=== PATIENT | male | born 1955 | race Caucasian/White ===

== ENCOUNTER 2020-10-02 07:37 | Outpatient (REF) | payer BC, SELFPAY ==
[2020-10-02 11:17] LABS: Estimated Average Glucose 140 mg/dL; Hemoglobin A1c % 6.5 %
[2020-10-02 11:55] LABS: Creatinine Urine 34.67 mg/dL; Microalbum/Creatinine Ratio Ur 426.8 ug/mg cr
[2020-10-02 12:03] LABS: Alanine Aminotransferase 65 U/L (0-40); Albumin Level 4.8 g/dL (3.5-5.0); Alkaline Phosphatase 64 U/L (39-117); Anion Gap 17 (12-20); Aspartate Amino Transferase 67 U/L (5-37); Bilirubin Total 1.3 mg/dL (0.0-1.0); Blood Urea Nitrogen 15 mg/dL (9-16); Calcium 9.2 mg/dL (8.4-10.2); Carbon Dioxide 22 mmol/L (22-29); Chloride 108 mmol/L (96-108); Cholesterol 143 mg/dL; Estimated Glomerular Filt Rate 35; Glucose Fasting 116 mg/dL (60-99); HDL Cholesterol 84 mg/dL; LDL Cholesterol Calculated 45 mg/dl; Potassium 3.9 mmol/L (3.3-5.1); Sodium 143 mmol/L (135-145); Total Protein 7.6 g/dL (6.5-8.0); Triglycerides 73 mg/dL
== END 2020-10-02 07:38 | disposition home or self-care (01) ==
LOC: HO.MANLDS 07:37
PROVIDERS: PCP Internal Medicine; Visit Provider Internal Medicine
DX: E11.9 Type 2 diabetes mellitus without complications (principal)
CPT/HCPCS: 36415; 80053; 80061; 82043; 83036

== ENCOUNTER 2020-11-15 11:11 | Outpatient (REF) | payer BC, SELFPAY ==
[2020-11-15 15:14] LABS: CDIFF Ag Negative (Negative); CDIFF Internal ctrl Dots and bkg OK (V); CDiff Toxin Negative (Negative)
== END 2020-11-15 11:12 | disposition home or self-care (01) ==
LOC: HO.MANLDS 11:11
PROVIDERS: PCP Internal Medicine; Visit Provider Internal Medicine
DX: R19.7 Diarrhea, unspecified (principal)
CPT/HCPCS: 87045; 87046; 87324; 87449

== ENCOUNTER 2021-04-01 07:50 | Outpatient (REF) | payer BC, SELFPAY ==
[2021-04-01 12:33] LABS: Estimated Average Glucose 174 mg/dL; Hemoglobin A1c % 7.7 %
[2021-04-01 12:36] LABS: Alanine Aminotransferase 33 U/L (0-40); Albumin Level 4.4 g/dL (3.5-5.0); Alkaline Phosphatase 68 U/L (39-117); Anion Gap 15 (12-20); Aspartate Amino Transferase 34 U/L (5-37); Bilirubin Total 0.4 mg/dL (0.0-1.0); Blood Urea Nitrogen 11 mg/dL (9-16); Calcium 9.1 mg/dL (8.4-10.2); Carbon Dioxide 25 mmol/L (22-29); Chloride 107 mmol/L (96-108); Cholesterol 170 mg/dL; Estimated Glomerular Filt Rate > 60; Glucose Fasting 194 mg/dL (60-99); HDL Cholesterol 81 mg/dL; LDL Cholesterol Calculated 67 mg/dl; Potassium 4.7 mmol/L (3.3-5.1); Sodium 142 mmol/L (135-145); Total Protein 7.3 g/dL (6.5-8.0); Triglycerides 112 mg/dL
[2021-04-05 21:17] LABS: IgA 171 mg/dL (70-320); IgG 1160 mg/dL (600-1540); IgM 49 mg/dL (50-300)
[2021-04-09 22:06] LABS: Immunoglobulin E 55 kU/L (<OR=114)
== END 2021-04-01 07:51 | disposition home or self-care (01) ==
LOC: HO.MANLDS 07:50
PROVIDERS: Internal Medicine; PCP Physician Assistant; Visit Provider Physician Assistant
DX: N18.9 Chronic kidney disease, unspecified (principal)
CPT/HCPCS: 36415; 80053; 80061; 82784; 82785; 83036; 86334

== ENCOUNTER 2021-10-20 08:46 | Outpatient (REF) | payer BC, SELFPAY ==
[2021-10-20 11:42] LABS: Alanine Aminotransferase 37 U/L (0-40); Albumin Level 4.3 g/dL (3.5-5.0); Alkaline Phosphatase 55 U/L (39-117); Anion Gap 16 (12-20); Aspartate Amino Transferase 47 U/L (5-37); Bilirubin Total 0.5 mg/dL (0.0-1.0); Blood Urea Nitrogen 36 mg/dL (9-16); Calcium 9.6 mg/dL (8.4-10.2); Carbon Dioxide 18 mmol/L (22-29); Chloride 110 mmol/L (96-108); Cholesterol 109 mg/dL; Estimated Glomerular Filt Rate 21; Glucose Fasting 151 mg/dL (60-99); HDL Cholesterol 53 mg/dL; LDL Cholesterol Calculated 36 mg/dl; Potassium 4.6 mmol/L (3.3-5.1); Sodium 139 mmol/L (135-145); Total Protein 7.1 g/dL (6.5-8.0); Triglycerides 101 mg/dL
[2021-10-20 12:02] LABS: Estimated Average Glucose 117 mg/dL; Hemoglobin A1c % 5.7 %
== END 2021-10-20 08:47 | disposition home or self-care (01) ==
LOC: HO.MANLDS 08:46
PROVIDERS: PCP Internal Medicine; Visit Provider Internal Medicine
DX: E11.9 Type 2 diabetes mellitus without complications (principal)
CPT/HCPCS: 36415; 80053; 80061; 83036

== ENCOUNTER 2021-10-21 10:26 | Outpatient (REF) | payer BC, SELFPAY ==
[2021-10-21 13:53] LABS: Creatinine Urine 62.08 mg/dL; Microalbum/Creatinine Ratio Ur 83.7 ug/mg cr
== END 2021-10-21 10:27 | disposition home or self-care (01) ==
LOC: HO.MANLNP 10:26
PROVIDERS: PCP Internal Medicine; Visit Provider Internal Medicine
DX: E11.9 Type 2 diabetes mellitus without complications (principal)
CPT/HCPCS: 82043

== ENCOUNTER 2022-03-25 10:34 | Outpatient (REF) | payer BC, SELFPAY ==
[2022-03-25 13:00] LABS: Estimated Average Glucose 131 mg/dL; Hemoglobin A1c % 6.2 %
[2022-03-25 13:19] LABS: Creatinine Urine 91.96 mg/dL; Microalbum/Creatinine Ratio Ur 73.9 ug/mg cr
[2022-03-25 13:21] LABS: Alanine Aminotransferase 30 U/L (0-40); Albumin Level 4.3 g/dL (3.5-5.0); Alkaline Phosphatase 60 U/L (39-117); Anion Gap 14 (12-20); Aspartate Amino Transferase 33 U/L (5-37); Bilirubin Total 0.6 mg/dL (0.0-1.0); Blood Urea Nitrogen 19 mg/dL (9-16); Calcium 9.5 mg/dL (8.4-10.2); Carbon Dioxide 24 mmol/L (22-29); Chloride 106 mmol/L (96-108); Cholesterol 140 mg/dL; Estimated Glomerular Filt Rate > 60; Glucose Random 150 mg/dL (60-115); HDL Cholesterol 72 mg/dL; LDL Cholesterol Calculated 58 mg/dl; Potassium 5.2 mmol/L (3.3-5.1); Sodium 139 mmol/L (135-145); Total Protein 7.4 g/dL (6.5-8.0); Triglycerides 51 mg/dL
== END 2022-03-25 10:35 | disposition home or self-care (01) ==
LOC: HO.MANLDS 10:34
PROVIDERS: Visit Provider Internal Medicine
DX: E11.9 Type 2 diabetes mellitus without complications (principal)
CPT/HCPCS: 36415; 80053; 80061; 82043; 83036

== ENCOUNTER 2022-07-15 10:01 | Outpatient (REF) | payer BC, SELFPAY ==
[2022-07-15 11:34] LABS: Estimated Average Glucose 151 mg/dL; Hemoglobin A1c % 6.9 %
[2022-07-15 11:49] LABS: Alanine Aminotransferase 58 U/L (0-40); Albumin Level 4.4 g/dL (3.5-5.0); Alkaline Phosphatase 75 U/L (39-117); Anion Gap 14 (12-20); Aspartate Amino Transferase 62 U/L (5-37); Bilirubin Total 0.8 mg/dL (0.0-1.0); Blood Urea Nitrogen 19 mg/dL (9-16); Calcium 9.4 mg/dL (8.4-10.2); Carbon Dioxide 24 mmol/L (22-29); Chloride 104 mmol/L (96-108); Cholesterol 152 mg/dL; Estimated Glomerular Filt Rate 55; Glucose Random 198 mg/dL (60-115); HDL Cholesterol 84 mg/dL; LDL Cholesterol Calculated 56 mg/dl; Potassium 5.3 mmol/L (3.3-5.1); Sodium 137 mmol/L (135-145); Total Protein 7.5 g/dL (6.5-8.0); Triglycerides 60 mg/dL
== END 2022-07-15 10:02 | disposition home or self-care (01) ==
LOC: HO.MANLDS 10:01
PROVIDERS: Visit Provider Internal Medicine
DX: E11.9 Type 2 diabetes mellitus without complications (principal)
CPT/HCPCS: 36415; 80053; 80061; 83036

== ENCOUNTER 2022-10-14 09:36 | Outpatient (REF) | payer BC, SELFPAY ==
[2022-10-14 13:16] LABS: Estimated Average Glucose 151 mg/dL; Hemoglobin A1c % 6.9 %
[2022-10-14 13:35] LABS: Creatinine Urine 147.21 mg/dL; Microalbum/Creatinine Ratio Ur 228.2 ug/mg cr
[2022-10-14 13:46] LABS: Alanine Aminotransferase 38 U/L (0-40); Albumin Level 4.3 g/dL (3.5-5.0); Alkaline Phosphatase 61 U/L (39-117); Anion Gap 17 (12-20); Aspartate Amino Transferase 41 U/L (5-37); Bilirubin Total 0.9 mg/dL (0.0-1.0); Blood Urea Nitrogen 28 mg/dL (9-16); Calcium 8.9 mg/dL (8.4-10.2); Carbon Dioxide 18 mmol/L (22-29); Chloride 108 mmol/L (96-108); Cholesterol 111 mg/dL; Estimated Glomerular Filt Rate 22; Glucose Random 159 mg/dL (60-115); HDL Cholesterol 55 mg/dL; LDL Cholesterol Calculated 32 mg/dl; Potassium 4.2 mmol/L (3.3-5.1); Sodium 139 mmol/L (135-145); Triglycerides 124 mg/dL
[2022-10-14 14:04] LABS: Prostate Specific Antigen 5.49 ng/mL (<0.05-4.0)
== END 2022-10-14 09:37 | disposition home or self-care (01) ==
LOC: HO.MANLDS 09:36
PROVIDERS: Visit Provider Internal Medicine
DX: E11.9 Type 2 diabetes mellitus without complications (principal); Z12.5 Encounter for screening for malignant neoplasm of prostate
CPT/HCPCS: 36415; 80053; 80061; 82043; 83036; 84153

== ENCOUNTER 2023-02-02 08:55 | Outpatient (REF) | payer BC, SELFPAY ==
[2023-02-02 14:09] LABS: Estimated Average Glucose 134 mg/dL; Hemoglobin A1c % 6.3 %
[2023-02-02 14:23] LABS: Prostate Specific Antigen 4.66 ng/mL (<0.05-4.0)
[2023-02-02 14:25] LABS: Alanine Aminotransferase 34 U/L (0-40); Albumin Level 4.2 g/dL (3.5-5.0); Alkaline Phosphatase 61 U/L (39-117); Anion Gap 11 (12-20); Aspartate Amino Transferase 44 U/L (5-37); Bilirubin Total 0.7 mg/dL (0.0-1.0); Blood Urea Nitrogen 16 mg/dL (9-16); Calcium 9.9 mg/dL (8.4-10.2); Carbon Dioxide 25 mmol/L (22-29); Chloride 108 mmol/L (96-108); Cholesterol 118 mg/dL; Estimated Glomerular Filt Rate 45; Glucose Random 130 mg/dL (60-115); HDL Cholesterol 63 mg/dL; LDL Cholesterol Calculated 42 mg/dl; Potassium 4.8 mmol/L (3.3-5.1); Sodium 139 mmol/L (135-145); Total Protein 7.5 g/dL (6.5-8.0); Triglycerides 66 mg/dL
== END 2023-02-02 08:56 | disposition home or self-care (01) ==
LOC: HO.MANLDS 08:55
PROVIDERS: Visit Provider Internal Medicine
DX: Z12.5 Encounter for screening for malignant neoplasm of prostate (principal); E11.9 Type 2 diabetes mellitus without complications
CPT/HCPCS: 36415; 80053; 80061; 83036; 84153

== ENCOUNTER 2023-05-26 10:19 | Outpatient (REF) | payer BC, SELFPAY ==
[2023-05-26 13:16] LABS: MANUAL DIFF FLAG NO
[2023-05-26 13:35] LABS: Estimated Average Glucose 146 mg/dL; Hemoglobin A1c % 6.7 % (<6.0)
[2023-05-26 13:38] LABS: Basophils Percent Auto 0.4 % (0-2); Eosinophils Absolute Auto 0.1 X10*3/uL (0.0-0.4); Eosinophils Percent Auto 0.8 % (0-4); Hematocrit 30.1 % (42.0-52.0); Hemoglobin 9.6 g/dl (14.0-18.0); Imm Gran Abs Auto 0.07 X10*3/uL (0.00-0.03); Imm Gran Pct Auto 0.9 % (0.0-0.4); Lymphocytes Absolute Auto 0.6 X10*3/uL (1.2-4.9); Lymphocytes Percent Auto 8.2 % (20-40); Mean Corpuscular HGB Conc 31.9 g/dl (31.0-36.0); Mean Corpuscular Hemoglobin 32.5 pg (27.0-33.0); Mean Platelet Volume 8.7 fL (9.4-12.4); Monocytes Absolute Auto 0.6 X10*3/uL (0.1-1.2); Monocytes Percent Auto 7.2 % (2-11); Neutrophils Absolute Auto 6.4 x10*3/uL (2.0-8.3); Neutrophils Percent Auto 82.5 % (45-73); Platelet Count 216 X10*3/uL (160-400); Red Blood Count 2.95 X10*6/uL (4.60-5.80); White Blood Count 7.7 X10*3/uL (4.8-10.8)
[2023-05-26 14:02] LABS: Alanine Aminotransferase 210 U/L (0-40); Albumin Level 3.8 g/dL (3.5-5.0); Alkaline Phosphatase 72 U/L (39-117); Amylase 93 U/L (28-100); Anion Gap 18 (12-20); Aspartate Amino Transferase 388 U/L (5-37); Bilirubin Total 0.5 mg/dL (0.0-1.0); Blood Urea Nitrogen 64 mg/dL (9-16); C Reactive Protein 0.65 mg/dL (< or = 0.50); Calcium 9.1 mg/dL (8.4-10.2); Carbon Dioxide 12 mmol/L (22-29); Chloride 109 mmol/L (96-108); Estimated Glomerular Filt Rate 10; Glucose Random 107 mg/dL (60-115); Potassium 4.9 mmol/L (3.3-5.1); Sodium 134 mmol/L (135-145); Total Protein 7.1 g/dL (6.5-8.0)
[2023-05-26 14:15] LABS: Erythrocyte Sedimentation Rate 83 MM/HR (0-15)
[2023-05-26 14:21] LABS: Rheumatoid Factor < 13.0 IU/mL (<15.0)
[2023-05-26 14:23] LABS: Free T4 (Free Thyroxine) 0.85 ng/dL (0.71-1.85)
[2023-05-26 14:26] LABS: Folate 5.7 ng/mL (> or = 4.0); Vitamin B12 293 pg/mL (200-900)
[2023-05-26 15:21] LABS: Appearance Urine Cloudy; Color Urine Yellow; Glucose Urine UA Negative (Negative); Leukocyte Esterase Urine Large (3+) (Negative); Nitrite Urine Negative (Negative); PH 5.5 (5.0-9.0); UMIC TRIGGER UACC YES; Urine Blood Large (3+) (Negative); Urine Ketones Negative (Negative); Urine Protein 100 (2+) mg/dL (Neg-Trace)
[2023-05-26 15:34] LABS: Creatinine Urine 86.99 mg/dL; Microalbum/Creatinine Ratio Ur 152.8 ug/mg cr (<30)
[2023-05-26 15:46] LABS: Bacteria Urine None Seen (None Seen); RBC Urine 0-2 /HPF (0-2); Squamous Epithelial Cell Urine 0-2 /HPF (0-2); UACC Culture Trigger YES; WBC Urine >50 /HPF (0-5)
[2023-05-28 05:29] LABS: Lyme Abs Screen <0.90 index
[2023-05-28 13:08] LABS: Cyclic Citrullinated Peptide <16 UNITS
[2023-05-28 17:33] LABS: Thyroid Peroxidase Antibodies <1 IU/mL (<9)
[2023-05-30 21:44] LABS: Zinc 73 mcg/dL (60-130)
[2023-06-01 15:13] LABS: Thyroid Stimulating Immunoglob <89 % baseline (<140)
[2023-06-01 17:48] LABS: A phagocytophilum IgG <1:64 (<1:64); A phagocytophilum IgM <1:20 (<1:20)
== END 2023-05-26 10:20 | disposition home or self-care (01) ==
LOC: HO.MANLDS 10:19
PROVIDERS: Physician Assistant; Visit Provider Internal Medicine
DX: A63.0 Anogenital (venereal) warts (principal); R43.2 Parageusia; R14.2 Eructation; E11.9 Type 2 diabetes mellitus without complications; R82.90 Unspecified abnormal findings in urine
CPT/HCPCS: 36415; 80053; 81001; 82043; 82150; 82533; 82570; 82607; 82746; 83036; 83735; 84439; 84443; 84445; 84630; 85025; 85652; 86140; 86200; 86376; 86431; 86617; 86618; 86666; 87086

== ENCOUNTER 2023-05-30 06:20 | Outpatient (REF) | payer BC, SELFPAY ==
[2023-06-06 23:38] LABS: Calprotectin, Fecal 25 mcg/g
== END 2023-05-30 06:21 | disposition home or self-care (01) ==
LOC: HO.MANLDS 06:20
PROVIDERS: Visit Provider Physician Assistant
DX: R63.0 Anorexia (principal)
CPT/HCPCS: 83993

== ENCOUNTER 2023-05-31 13:02 | Outpatient (REF) | payer BC, SELFPAY ==
[2023-05-31 15:25] LABS: Appearance Urine Cloudy; Color Urine Yellow; Glucose Urine UA Negative (Negative); Leukocyte Esterase Urine Large (3+) (Negative); Nitrite Urine Negative (Negative); PH 5.5 (5.0-9.0); Specific Gravity - Urine 1.015 (1.005-1.025); UMIC TRIGGER UA YES; Urine Blood Large (3+) (Negative); Urine Ketones Negative (Negative); Urine Protein 100 (2+) mg/dL (Neg-Trace)
[2023-05-31 15:36] LABS: Osmolality Urine 295 mosm/kg (373-1093)
[2023-05-31 15:53] LABS: Bacteria Urine None Seen (None Seen); RBC Urine 0-2 /HPF (0-2); Squamous Epithelial Cell Urine 0-2 /HPF (0-2); WBC Urine >50 /HPF (0-5)
== END 2023-05-31 13:03 | disposition home or self-care (01) ==
LOC: HO.MANLDS 13:02
PROVIDERS: Visit Provider Physician Assistant
DX: N17.9 Acute kidney failure, unspecified (principal)
CPT/HCPCS: 81001; 81003; 83935

== ENCOUNTER 2023-06-01 11:27 | Outpatient (REF) | payer BC, SELFPAY ==
--- NOTE | ~2023-06-01 | CT_ITS ---
EXAMINATION: CT ABDOMEN AND PELVIS WITHOUT CONTRAST CLINICAL INFORMATION: Anorexia COMPARISON: None available. TECHNIQUE: Multidetector volumetric imaging was performed from the superior aspect of the liver through the pubic symphysis. Sagittal and coronal reformatted images were obtained on the technologist's workstation. This CT examination was performed using dose optimization techniques as appropriate, variously including the following: *Automated exposure control *Adjustment of mA and/or kV according to patient size (this includes techniques or standardized protocols for targeted exams where dose is matched to indication/reason for exam; i.e. extremities or head) *Use of iterative reconstruction technique DLP: 577 mGy-cm FINDINGS: LUNG BASES: The visualized lung bases are unremarkable. LIVER, GALLBLADDER, AND BILIARY TREE: The liver is normal in size, shape, and attenuation. No focal hepatic lesion or biliary ductal dilatation is present. Layering dependent intraluminal gallbladder calculi without wall thickening or pericholecystic fluid. PANCREAS: Unremarkable. SPLEEN: Unremarkable. ADRENAL GLANDS: Unremarkable. KIDNEYS AND URETERS: Nonobstructive left renal calculi measuring up to 2 mm without hydronephrosis. No right-sided nephrolithiasis or hydronephrosis. Bilateral perinephric stranding, nonspecific. BLADDER: Wall thickening of the urinary bladder which is nonspecific in an underdistended state. GASTROINTESTINAL TRACT: Colonic diverticulosis without acute diverticulitis. The small and large bowel are unremarkable. The appendix is unremarkable. ABDOMINAL WALL: Small fat filled umbilical hernia. Small fat filled left inguinal hernia. LYMPH NODES: Normal. VASCULAR: Abdominal aorta is nonaneurysmal. Atherosclerotic calcifications of the abdominal aorta and its branches. PELVIC VISCERA: Prostate measures 4.9 cm with calcifications within its body. OSSEOUS STRUCTURES: Multilevel degenerative changes of the thoracolumbar and lumbosacral spine. Sternotomy wires. Degenerative changes of the bilateral femoral acetabular joints with subchondral cystic changes of the right femoral head and neck. CT/CT abdomen pelvis wo IV con IMPRESSION: 1. No acute process of the abdomen or pelvis identified. 2. Cholelithiasis without acute cholecystitis. 3. Left-sided nephrolithiasis without hydronephrosis. 4. Nonspecific bilateral perinephric stranding. 5. Colonic diverticulosis without acute diverticulitis. 6. Prostate measures 4.9 cm with calcifications within its body. 7. Wall thickening of the urinary bladder which is nonspecific in an underdistended state.
[2023-06-01] MEDS: Barium Sulfate Oral (Berry) 450 ML ORAL.SUSP 900 ML PO (13:49)
== END 2023-06-01 11:28 | disposition home or self-care (01) ==
LOC: HO.CT 11:27
PROVIDERS: PCP Internal Medicine; Visit Provider Physician Assistant
DX: R63.0 Anorexia (principal)
CPT/HCPCS: 74176

== ENCOUNTER 2023-06-04 13:00 | Outpatient (REF) | payer BC, SELFPAY ==
--- NOTE | ~2023-06-04 | US_ITS ---
EXAMINATION: US RETROPERITONEAL LIMITED (RENAL ONLY) CLINICAL INFORMATION: Acute kidney failure. COMPARISON: CT abdomen and pelvis without contrast 06/01/2023. TECHNIQUE: Real-time imaging of the kidneys. Limited visualization due to bowel gas. FINDINGS: RIGHT KIDNEY: 11.7 x 4.7 x 5.6 cm (SAG x AP x TRV). Mild prominence of the right renal pyramids and dilated lower pole calyces. No renal calculi. Renal cortical thickness is normal. Limited visualization. LEFT KIDNEY: 11.6 x 4.5 x 5.6 cm (SAG x AP x TRV). Mild prominence of the left renal pyramids and dilated lower pole calyces. No obstructing renal calculi. Trace perinephric fluid adjacent to the upper pole of the left kidney. Clusters of echogenic foci in the upper pole of the left kidney, possibly representing vascular calcifications. Renal cortical thickness is normal. Limited visualization. US/US renal BI IMPRESSION: 1. Mild prominence of the bilateral renal pyramids and dilated bilateral lower pole calyces. No obstructing renal calculi identified. 2. Trace perinephric fluid adjacent to the upper pole of the left kidney. 3. Clusters of echogenic foci in the upper pole of the left kidney, possibly representing vascular calcifications.
== END 2023-06-04 13:01 | disposition home or self-care (01) ==
LOC: HO.US 13:00
PROVIDERS: PCP Internal Medicine; Visit Provider Physician Assistant
DX: N17.9 Acute kidney failure, unspecified (principal)
CPT/HCPCS: 76775

== ENCOUNTER 2023-07-16 08:40 | Outpatient (REF) | payer BC, SELFPAY | END 2023-07-16 08:41 | disposition home or self-care (01) | LOC: HO.MANLDS 08:40 | PROVIDERS: Visit Provider Internal Medicine | DX: E11.9 Type 2 diabetes mellitus without complications (principal) | CPT/HCPCS: 36415; 80053; 80061; 83036 ==

== ENCOUNTER 2023-08-12 14:31 | Outpatient (AMB) | payer BC, SELFPAY ==
--- NOTE | 2023-08-12 14:50 | A.OFFVIS_ITS ---
Intake Intake Visit Reasons: Elevated PSA Intake Note: NEW Patient presents today to established treatment for Elevated PSA: Results: 4.66 ng/mL 02/02/2023 Meds- None Allergies to Antibiotic- No Known Allergies Blood Thinner- None Post Void Residual: 17 mL Commercial Banker Required: No Accompanied by: Self / Same As Patient Allergies No Known Allergies Allergy (Verified 08/12/23 14:51) Medication List - Last Reconciled 08/12/23 by Rena Baer MD blood sugar diagnostic (Accu-Chek Guide test strips) As directed ezetimibe 10 mg PO DAILY finasteride (Proscar) 5 mg PO DAILY 90 days insulin glargine (Lantus Solostar U-100 Insulin) units subcut lancets (Accu-Chek Softclix Lancets) As directed pen needle, diabetic (BD Whit 2nd Gen Pen Needle) As directed HPI HPI Comments History of Present Illness Details Jorge A is a 68 year old male who is here for evaluation for elevated PSA. PSA was last done on 02/02/2023 and was 4.66. Past Medical history- insulin-dependent diabetes and nicotine use - comorbidity, recently he was noted to go into acute renal injury and was seen by Nephrology and had medication adjustments. Review of chart--BUN and creatinine on 05/26/23to be 64/5.63; recent labs- 07/16/2023 Bun -17 and creatinine 1.11 The patient complains of daytime urinary frequency denies urinary incontinence, weak urinary stream, nocturia 3-4 x. denies denies family history of prostate cancer. AUA symptom score 31/35 I have reviewed chart: 06/01/23-CT scan - Left renal calculi - 2mm - nonobstructing 06/04/23-renal ultrasound no renal calcu li noting thickened bladder wall enlarged prostate prostate exam: Enlarged smooth no suspicious bladder lesions UA---protein--trace, blood negative for leukocytes negative I have discussed PSA is a blood test, prostate specific antigen and is an enzyme secreted by the prostate gland. Elevated PSA may be due to multiple conditions including prostate inflammatory condition, enlarged prostate or prostate cancer. Plan: Cont tamsulosin, Start proscar 5 mg qd Repeat PSA in 2 months FU for office cystoscopy [facility] Surgical History Hx of hernia repair History of carpal tunnel surgery History of back surgery Hx of knee surgery History of quadruple bypass Family History Father No problems noted. Mother No problems noted. Social History Alcohol intake: current Alcohol intake frequency: holidays/special occasions only Patient Tobacco Use Status: Current everyday Tobacco user Tobacco use type: Cigar Questionnaire AUA Symptom Score AUA Incomplete emptying - It does not feel like I empty my bladder all the way.: 5 - Almost always Frequency - I have to go again less than two hours after I finish urinating.: 5 - Almost always Intermittency - I stop and start again several times when I urinate.: 5 - Almost always Urgency - It is hard to wait when I have to urinate.: 5 - Almost always Weak stream - I have a weak urinary stream.: 5 - Almost always Straining - I have to push or strain to begin urination.: 2 - Less than half the time Nocturia - I get up to urinate after I go to bed until the time I get up in the morning.: 4 times AUA Symptom Score: 31 Quality of life due to urinary symptoms: If you were to spend the rest of your life with your urinary condition the way it is now, how would you feel about that?: Unhappy Source: Baldo ALLEN, Felicia RODRIGUEZ Jr, O'Annetta MP, et al, and the Measurement Committee of the [employer] [employer]. The [place] [employer] symptom index for benign prostatic hyperplasia. J Urol. 1992; 148: 5366-9418. Copyright 1992 [place] [employer] Physical Exam Const General: healthy appearing, no acute distress and well developed Orientation/consciousness: patient oriented x3 HEENT Head: Yes normocephalic and Yes atraumatic Eyes Conjunctivae: conjunctivae normal Neck Neck: Yes normal visual inspection Chest Chest palpation & inspection: normal inspection of the chest Resp Effort & Inspection: normal respiratory effort Cardio Rate: regular rate GI Inspection: Yes normal to inspection Palpation (GI): Soft to palpation Other: Prostate Exam: Enlarged smooth no hard nodules palpated Skin General skin exam: no rashes or lesions noted Neuro General: patient oriented x3 Extrem General: No pedal edema Psych Appearance: grossly normal Affect: normal affect Office Procedures Post Void Residual Post Residual Void Post Void Residual (PVR): 17 [id number] Void Residual by ultrasound Results AMB Urinalysis, Automated UA Leukoctes 0 Kelly/uL Last Edit by AAYUSH Jefferson on 08/12/23 15:18 UA Nitrite Negative Last Edit by AAYUSH Jefferson on 08/12/23 15:18 UA Urobilinogen 0.2 mg/dL Last Edit by AAYUSH Jefferson on 08/12/23 15:1 8 UA Protein 15 mg/dL Last Edit by AAYUSH Jefferson on 08/12/23 15:18 UA pH 6.0 Last Edit by AAYUSH Jefferson on 08/12/23 15:18 UA Blood 0 Reji/uL Last Edit by AAYUSH Jefferson on 08/12/23 15:18 UA Specific [place] 1.025 Last Edit by AAYUSH Jefferson on 08/12/23 15: 18 UA Ketone Negative Last Edit by AAYUSH Jefferson on 08/12/23 15:18 UA Bilirubin 0 mg/dL Last Edit by Benjamin Henriquez Courtney on 08/12/23 15:18 UA Glucose 0 mg/dL Last Edit by Benjamin Henriquez Courtney on 08/12/23 15:18 Results Reviewed Results Reviewed: Laboratory Last Values Urine pH (Auto) 6.0 08/12/23 15:17 Specific [place] (Auto) 1.025 08/12/23 15:17 Urine Protein (Auto) 15 mg/dL 08/12/23 15:17 Glucose (UA)(Auto) 0 mg/dL 08/12/23 15:17 Urine Ketones (Auto) Negative 08/12/23 15:17 Urine Blood (Auto) 0 Reji/uL 08/12/23 15:17 Urine Nitrite (Auto) Negative 08/12/23 15:17 Urine Bilirubin (Auto) 0 mg/dL 08/12/23 15:17 Urine Urobilinogen (Auto) 0.2 mg/dL 08/12/23 15:17 Leukocyte Esterase (Auto) 0 Kelly/uL 08/12/23 15:17 Date of Service: 06/04/23 EXAMINATION: US RETROPERITONEAL LIMITED (RENAL ONLY) CLINICAL INFORMATION: Acute kidney failure. COMPARISON: CT abdomen and pelvis without contrast 06/01/2023. TECHNIQUE: Real-time imaging of the kidneys. Limited visualization due to bowel gas. FINDINGS: RIGHT KIDNEY: 11.7 x 4.7 x 5.6 cm (SAG x AP x TRV). Mild prominence of the right renal pyramids and dilated lower pole calyces. No renal calculi. Renal cortical thickness is normal. Limited visualization. LEFT KIDNEY: 11.6 x 4.5 x 5.6 cm (SAG x AP x TRV). Mild prominence of the left renal pyramids and dilated lower pole calyces. No obstructing renal calculi. Trace perinephric fluid adjacent to the upper pole of the left kidney. Clusters of echogenic foci in the upper pole of the left kidney, possibly representing vascular calcifications. Renal cortical thickness is normal. Limited visualization. IMPRESSION: 1. Mild prominence of the bilateral renal pyramids and dilated bilateral lower pole calyces. No obstructing renal calculi identified. 2. Trace perinephric fluid adjacent to the upper pole of the left kidney. 3. Clusters of echogenic foci in the upper pole of the left kidney, possibly representing vascular calcifications. Date of Service: 06/01/23 EXAMINATION: CT ABDOMEN AND PELVIS WITHOUT CONTRAST CLINICAL INFORMATION: Anorexia COMPARISON: None available. FINDINGS: LUNG BASES: The visualized lung bases are unremarkable. LIVER, GALLBLADDER, AND BILIARY TREE: The liver is normal in size, shape, and attenuation. No focal hepatic lesion or biliary ductal dilatation is present. Layering dependent intraluminal gallbladder calculi without wall thickening or pericholecystic fluid. PANCREAS: Unremarkable. SPLEEN: Unremarkable. ADRENAL GLANDS: Unremarkable. KIDNEYS AND URETERS: Nonobstructive left renal calculi measuring up to 2 mm without hydronephrosis. No right-sided nephrolithiasis or hydronephrosis. Bilateral perinephric stranding, nonspecific. BLADDER: Wall thickening of the urinary bladder which is nonspecific in an underdistended state. GASTROINTESTINAL TRACT: Colonic diverticulosis without acute diverticulitis. The small and large bowel are unremarkable. The appendix is unremarkable. ABDOMINAL WALL: Small fat filled umbilical hernia. Small fat filled left inguinal hernia. LYMPH NODES: Normal. VASCULAR: Abdominal aorta is nonaneurysmal. Atherosclerotic calcifications of the abdominal aorta and its branches. PELVIC VISCERA: Prostate measures 4.9 cm with calcifications within its body. OSSEOUS STRUCTURES: Multilevel degenerative changes of the thoracolumbar and lumbosacral spine. Sternotomy wires. Degenerative changes of the bilateral femoral acetabular joints with subchondral cystic changes of the right femoral head and neck. IMPRESSION: 1. No acute process of the abdomen or pelvis identified. 2. Cholelithiasis without acute cholecystitis. 3. Left-sided nephrolithiasis without hydronephrosis. 4. Nonspecific bilateral perinephric stranding. 5. Colonic diverticulosis without acute diverticulitis. 6. Prostate measures 4.9 cm with calcifications within its body. 7. Wall thickening of the urinary bladder which is nonspecific in an underdistended state. Assessment & Plan Assessment & Plan (1) BPH loc w urin obs/LUTS: Code(s): N40.1 - Benign prostatic hyperplasia with lower urinary tract symptoms (2) Elevated PSA: Code(s): R97.20 - Elevated prostate specific antigen [PSA] (3) Diabetes: Code(s): E11.9 - Type 2 diabetes mellitus without complications Plan Cont tamsulosin, Start proscar 5 mg qd Repeat PSA in 2 months FU for office cystoscopy Orders: Orders AMB Urinalysis Automated Today Z13.9 - Encounter for screening, unspecified PSA,Total (Free>4and<10) 7 Weeks N40.1 - Benign prostatic hyperplasia with lower urinary tract symptoms, R97.20 - Elevated prostate specific antigen [PSA] AMB Post Void Residual by ultrasound Today N39.8 - Other specified disorders of urinary system Medications: New finasteride (Proscar) 5 mg PO DAILY 90 tabs 3RF 90 days C61 - Malignant neoplasm of prostate Patient Instructions: The patient had an opportunity to ask questions regarding treatment plan. All questions were answered. Imaging, Laboratory studies and physical exam results were discussed and reviewed in detail. No major barriers to understanding were identified. The patient expressed understanding and agreement with the above treatment plan. The patient is aware they should contact our office by phone for worsening of their current condition or the appearance of new symptoms. Compliance is encouraged with any medications and followup testing that is ordered. It is a privilege to be allowed the opportunity to participate in the urologic care of your patient. If you have any questions or concerns regarding treatment for the above conditions please do not hesitate to contact me. The office telephone contact is [phone]. This note is constructed in part using voice recognition software. While every effort has been made to ensure accuracy garnett feeder errors may have been included. Yours sincerely, Rena Baer MD Quality Reporting (2019) Benign Prostatic Hyperplasia ([facility] 771) AUA symptom score: 31 Quality of life due to urinary symptoms: If you were to spend the rest of your life with your urinary condition the way it is now, how would you feel about that?: Unhappy Coding Level of Care Code New Pt Level 4 (37257) Diagnoses BPH loc w urin obs/LUTS N40.1 Elevated PSA R97.20 Diabetes E11.9 CPT Codes Post Residual Void - PVR CPT Code: 65045-Niuo Void Residual by ultrasound ([id number])
== END 2023-08-12 15:54 | disposition home or self-care (01) ==
PROVIDERS: PCP Internal Medicine; Visit Provider Urology
DX: N40.1 Benign prostatic hyperplasia with lower urinary tract symptoms (principal); R97.20 Elevated prostate specific antigen [PSA]; E11.9 Type 2 diabetes mellitus without complications; Z13.9 Encounter for screening, unspecified
CPT/HCPCS: 99204

== ENCOUNTER → 2023-08-12 14:31 | Outpatient (BNVA) | payer BC, SELFPAY | PROVIDERS: PCP Internal Medicine; Visit Provider Urology | DX: R97.20 Elevated prostate specific antigen [PSA] (principal); N40.1 Benign prostatic hyperplasia with lower urinary tract symptoms; N13.8 Other obstructive and reflux uropathy; E11.9 Type 2 diabetes mellitus without complications; Z79.899 Other long term (current) drug therapy | CPT/HCPCS: 51798; 81003 ==

== ENCOUNTER 2023-10-19 09:36 | Outpatient (REF) | payer BC, SELFPAY ==
[2023-10-19 13:52] LABS: Estimated Average Glucose 252 mg/dL; Hemoglobin A1c % 10.4 % (<6.0)
[2023-10-19 14:17] LABS: Alanine Aminotransferase 22 U/L (0-40); Albumin Level 4.2 g/dL (3.5-5.0); Alkaline Phosphatase 79 U/L (39-117); Anion Gap 15 (12-20); Aspartate Amino Transferase 26 U/L (5-37); Bilirubin Total 0.7 mg/dL (0.0-1.0); Blood Urea Nitrogen 16 mg/dL (9-16); Calcium 9.6 mg/dL (8.4-10.2); Carbon Dioxide 22 mmol/L (22-29); Chloride 105 mmol/L (96-108); Estimated Glomerular Filt Rate > 60; Glucose Random 262 mg/dL (60-115); Potassium 4.2 mmol/L (3.3-5.1); Sodium 138 mmol/L (135-145); Total Protein 7.8 g/dL (6.5-8.0)
[2023-10-19 14:23] LABS: Prostate Specific Antigen 3.13 ng/mL (<0.05-4.0)
== END 2023-10-19 09:37 | disposition home or self-care (01) ==
LOC: HO.MANLDS 09:36
PROVIDERS: Visit Provider Internal Medicine
DX: Z12.5 Encounter for screening for malignant neoplasm of prostate (principal); E11.9 Type 2 diabetes mellitus without complications
CPT/HCPCS: 36415; 80053; 83036; 84153

== ENCOUNTER 2023-11-25 09:12 | Outpatient (AMB) | payer BC, SELFPAY ==
--- NOTE | 2023-11-25 09:36 | A.OFFVIS_ITS ---
Intake Visit Reasons: cysto/PSA Intake Note: Patient presents today for a CYSTOSCOPY Procedure: Meds: Finasteride Allergies to Antibiotic: No Known Allergies Blood Thinner: None Urinalysis test clear for Cysto? Disposable Uro-G HD Cystoscope Cannula: Lot: [id number] Exp: 07/13/2026 Funeral Prearrangement Counselor Required: No Accompanied by: Self / Same As Patient Allergies No Known Allergies Allergy (Verified 11/25/23 09:39) Medication List - Last Reconciled 11/25/23 by Rena Baer MD blood sugar diagnostic (Accu-Chek Guide test strips) As directed ezetimibe 10 mg PO DAILY finasteride (Proscar) 5 mg PO DAILY 90 days insulin glargine (Lantus Solostar U-100 Insulin) units subcut lancets (Accu-Chek Softclix Lancets) As directed pen needle, diabetic (BD Whit 2nd Gen Pen Needle) As directed HPI Comments Details: 11/25/2023--Joreg A is here for office cystoscopy. He was initially evaluated on 08/12/2023 for elevated PSA and had AUA symptoms of 31. Prostate exam, no suspicious nodules palpated. Imaging of the urinary tract May [address] scan notable 2 mm of kidney stone, bladder wall thickening and prostate calcifications. He was started on Proscar 5 mg daily. I have discussed repeat PSA on 10/19/2023 is 3.13. The patient states that since being on the Proscar in addition to the tamsulosin he does note a better urinary flow. He also has noted some left nipple tenderness. His PCP is ordering some imaging to further evaluate. This finding may be secondary to the Proscar. For now I want him to hold Proscar for a month to see if there is improvement in the breast tenderness. Cystoscopy findings: prostatic urethra obstructive, trilobar enlargement, bulbous urethra WNL, no suspicious bladder lesions visualized. Urinalysis: Leukocytes negative, blood negative. Will continue to monitor PSA. Hold Proscar for 1 month. Review of chart: 08/12/2023-Jorge A is a 68 year old male who is here for evaluation for elevated PSA. PSA was last done on 02/02/2023 and was 4.66. Past Medical history- insulin-dependent diabetes and nicotine use - comorbidity, recently he was noted to go into acute renal injury and was seen by Nephrology and had medication adjustments. Review of chart--BUN and creatinine on 05/26/23to be 64/5.63; recent labs- 07/16/2023 Bun -17 and creatinine 1.11 The patient complains of daytime urinary frequency denies urinary incontinence, weak urinary stream, nocturia 3-4 x. denies denies family history of prostate cancer. AUA symptom score 31/35. I have discussed PSA is a blood test, prostate specific antigen and is an enzyme secreted by the prostate gland. Elevated PSA may be due to multiple conditions including prostate inflammatory condition, enlarged prostate or prostate cancer. prostate exam: Enlarged smooth no suspicious bladder lesions. UA---protein--trace, blood negative for leukocytes negative I have reviewed chart: 06/01/23-CT scan - Left renal calculi - 2mm - nonobstructing 06/04/23-renal ultrasound no renal calculi noting thickened bladder wall enlarged prostate PFSH Surgical History Hx of cystoscopy Hx of hernia repair History of carpal tunnel surgery History of back surgery Hx of knee surgery History of quadruple bypass Family History Father No problems noted. Mother No problems noted. Social History Alcohol intake: current Alcohol intake frequency: holidays/special occasions only Patient Tobacco Use Status: Current everyday Tobacco user Tobacco use type: Cigar Review of Systems Const All systems reviewed & are unremarkable except as noted in HPI and below Reports no additional complaints Eyes Reports no additional complaints ENT Reports no additional complaints Card Reports no additional complaints Resp Reports no additional complaints GI Reports no additional complaints Reports as per HPI Musc Reports no additional complaints Skin/Breast Reports system reviewed and no additional complaints, except as documented Neuro Reports no additional complaints Psych Reports no additional complaints Endo Reports no additional complaints Otto/Lymph Reports no additional complaints Aller/Immun Reports no additional complaints Office Procedures Cystoscopy Consent Discussed risk and benefit or proposed procedure with the patient. Information consent for procedure given to the patient. Discussed technical aspects, risks, benefits and alternatives in full. Addressed all of the patient's questions and concerns regarding the procedure. The patient demonstrated knowledge and understanding. They wish to proceed with this procedure. Preparation The patient was prepped in the usual manner. A kitchen and bath designer was present and in the room. Genitalia was prepped with betadine solution in a sterile manner. Lidocaine Jelly 2% was placed into the urethra and 16Fr flexible Olympus cystoscope was inserted into the meatus after adequate lubrication. Procedure Time out per protocol performed. Bladder Inspection Bladder Inspection: The bladder was inspected in its entirety with utilization retroflexion displaying: Tumor(s): No suspicious lesions visualized Trabeculation: Present-moderate Mucosal Erthema: NA Orifices: Not well visualized due to obstructing prominent median lobe Urethra: normal Cystoscopy findings: prostatic urethra obstructive, trilobar enlargement, bulbous urethra WNL, no suspicious bladder lesions visualized [id number] DISPOSABLE SCOPE URO-G FLEXIBLE SCOPE Procedure code (CPT) selection complete Office Meds lidocaine HCl 2 % mucosal jelly in applicator Performing Provider: Rena Baer MD [facility] Administered by: Oskar Jaffe LPN on 11/25/23 09:42 Dose Route Admin Location Dispensed Lot Number Expiration Date ND Undercollar Baster 10 mL intra-urethral 20 mL naproxen 500 mg tablet Performing Provider: Rena Baer MD Performing [facility] Administered by: Oskar Jaffe LPN on 11/25/23 09:42 Dose Route Admin Location Dispensed Lot Number Expiration Date ND Undercollar Baster 500 mg PO 1 tab ciprofloxacin HCl 500 mg tablet Performing Provider: Rena Baer MD Performing [facility] [place] Administered by: Oskar Jaffe LPN on 11/25/23 09:42 Dose Route Admin Location Dispensed Lot Number Expiration Date ND Undercollar Baster 500 mg PO 1 tab Results AMB Urinalysis, Automated UA Leukoctes 0 Kelly/uL Last Edit by AAYUSH Jefferson on 11/25/23 09:44 UA Nitrite Negative Last Edit by Benjamin Henriquez A on 11/25/23 09:44 UA Urobilinogen 0.2 mg/dL Last Edit by Benjamin Henriquez Courtney on 11/25/23 09:4 4 UA Protein 15 mg/dL Last Edit by Benjamin Henriquez [facility] on 11/25/23 09:44 UA pH 6.0 Last Edit by Benjamin Henriquez A on 11/25/23 09:44 UA Blood 0 Reji/uL Last Edit by Benjamin Henriquez A on 11/25/23 09:44 UA Specific Vernon 1.015 Last Edit by Benjamin Henriquez [facility] on 11/25/23 09: 44 UA Ketone Negative Last Edit by Benjamin Henriquez [facility] on 11/25/23 09:44 UA Bilirubin 0 mg/dL Last Edit by Benjamin Henriquez [facility] on 11/25/23 09:44 UA Glucose 0 mg/dL Last Edit by Benjamin Henriquez [facility] on 11/25/23 09:44 Results Reviewed Results Reviewed: Laboratory Last Values Urine pH (Auto) 6.0 11/25/23 09:36 Specific Vernon (Auto) 1.015 11/25/23 09:36 Urine Protein (Auto) 15 mg/dL 11/25/23 09:36 Glucose (UA)(Auto) 0 mg/dL 11/25/23 09:36 Urine Ketones (Auto) Negative 11/25/23 09:36 Urine Blood (Auto) 0 Reji/uL 11/25/23 09:36 Urine Nitrite (Auto) Negative 11/25/23 09:36 Urine Bilirubin (Auto) 0 mg/dL 11/25/23 09:36 Urine Urobilinogen (Auto) 0.2 mg/dL 11/25/23 09:36 Leukocyte Esterase (Auto) 0 Kelly/uL 11/25/23 09:36 Date of Service: 06/04/23 EXAMINATION: US RETROPERITONEAL LIMITED (RENAL ONLY) CLINICAL INFORMATION: Acute kidney failure. COMPARISON: CT abdomen and pelvis without contrast 06/01/2023. TECHNIQUE: Real-time imaging of the kidneys. Limited visualization due to bowel gas. FINDINGS: RIGHT KIDNEY: 11.7 x 4.7 x 5.6 cm (SAG x AP x TRV). Mild prominence of the right renal pyramids and dilated lower pole calyces. No renal calculi. Renal cortical thickness is normal. Limited visualization. LEFT KIDNEY: 11.6 x 4.5 x 5.6 cm (SAG x AP x TRV). Mild prominence of the left renal pyramids and dilated lower pole calyces. No obstructing renal calculi. Trace perinephric fluid adjacent to the upper pole of the left kidney. Clusters of echogenic foci in the upper pole of the left kidney, possibly representing vascular calcifications. Renal cortical thickness is normal. Limited visualization. IMPRESSION: 1. Mild prominence of the bilateral renal pyramids and dilated bilateral lower pole calyces. No obstructing renal calculi identified. 2. Trace perinephric fluid adjacent to the upper pole of the left kidney. 3. Clusters of echogenic foci in the upper pole of the left kidney, possibly representing vascular calcifications. Date of Service: 06/01/23 EXAMINATION: CT ABDOMEN AND PELVIS WITHOUT CONTRAST CLINICAL INFORMATION: Anorexia COMPARISON: None available. FINDINGS: LUNG BASES: The visualized lung bases are unremarkable. LIVER, GALLBLADDER, AND BILIARY TREE: The liver is normal in size, shape, and attenuation. No focal hepatic lesion or biliary ductal dilatation is present. Layering dependent intraluminal gallbladder calculi without wall thickening or pericholecystic fluid. PANCREAS: Unremarkable. SPLEEN: Unremarkable. ADRENAL GLANDS: Unremarkable. KIDNEYS AND URETERS: Nonobstructive left renal calculi measuring up to 2 mm without hydronephrosis. No right-sided nephrolithiasis or hydronephrosis. Bilateral perinephric stranding, nonspecific. BLADDER: Wall thickening of the urinary bladder which is nonspecific in an underdistended state. GASTROINTESTINAL TRACT: Colonic diverticulosis without acute diverticulitis. The small and large bowel are unremarkable. The appendix is unremarkable. ABDOMINAL WALL: Small fat filled umbilical hernia. Small fat filled left inguinal hernia. LYMPH NODES: Normal. VASCULAR: Abdominal aorta is nonaneurysmal. Atherosclerotic calcifications of the abdominal aorta and its branches. PELVIC VISCERA: Prostate measures 4.9 cm with calcifications within its body. OSSEOUS STRUCTURES: Multilevel degenerative changes of the thoracolumbar and lumbosacral spine. Sternotomy wires. Degenerative changes of the bilateral femoral acetabular joints with subchondral cystic changes of the right femoral head and neck. IMPRESSION: 1. No acute process of the abdomen or pelvis identified. 2. Cholelithiasis without acute cholecystitis. 3. Left-sided nephrolithiasis without hydronephrosis. 4. Nonspecific bilateral perinephric stranding. 5. Colonic diverticulosis without acute diverticulitis. 6. Prostate measures 4.9 cm with calcifications within its body. 7. Wall thickening of the urinary bladder which is nonspecific in an underdistended state. Assessment & Plan Assessment & Plan (1) BPH loc w urin obs/LUTS: Code(s): N40.1 - Benign prostatic hyperplasia with lower urinary tract symptoms Category: Medical (2) Elevated PSA: Code(s): R97.20 - Elevated prostate specific antigen [PSA] Category: Medical (3) Diabetes: Code(s): E11.9 - Type 2 diabetes mellitus without complications Category: Medical Plan Cont tamsulosin, hold Proscar for 1 month due to breast tenderness. Continue to monitor PSA, follow-up in 6 months PSA prior Orders: Orders AMB Cystoscopy Today N40.1 - Benign prostatic hyperplasia with lower urinary tract symptoms, R97.20 - Elevated prostate specific antigen [PSA] AMB Urinalysis Automated Today Z13.9 - Encounter for screening, unspecified PSA,Total (Free>4and<10) 5 Months R97.20 - Elevated prostate specific antigen [PSA] Medications: New tamsulosin (Flomax) 0.4 mg PO DAILY 90 caps 1RF Patient Instructions: The patient had an opportunity to ask questions regarding treatment plan. The patient expressed understanding and agreement with the above treatment plan. The patient is aware they should contact our office by phone for worsening of their current condition or the appearance of new symptoms. Compliance is encouraged with any medications and followup testing that is ordered. It is a privilege to be allowed the opportunity to participate in the urologic care of your patient. If you have any questions or concerns regarding treatment for the above conditions please do not hesitate to contact me. The office telephone contact is [phone]. This note is constructed in part using voice recognition software. While every effort has been made to ensure accuracy teaching assistant errors may have been included. Yours sincerely, Rena Baer MD Coding Level of Care Code Est Pt Level 3 (71930) Diagnoses BPH loc w urin obs/LUTS N40.1 Elevated PSA R97.20 Diabetes E11.9 CPT Codes Cystoscopy - CPT: [id number] ([id number])
== END 2023-11-25 10:34 | disposition home or self-care (01) ==
PROVIDERS: PCP Internal Medicine; Visit Provider Urology
DX: N40.1 Benign prostatic hyperplasia with lower urinary tract symptoms (principal); R97.20 Elevated prostate specific antigen [PSA]; E11.9 Type 2 diabetes mellitus without complications; Z13.9 Encounter for screening, unspecified
CPT/HCPCS: 52000; 99213

== ENCOUNTER → 2023-11-25 09:12 | Outpatient (BNVA) | payer BC, SELFPAY | PROVIDERS: PCP Internal Medicine; Visit Provider Urology | DX: N40.1 Benign prostatic hyperplasia with lower urinary tract symptoms (principal); N13.8 Other obstructive and reflux uropathy; R97.20 Elevated prostate specific antigen [PSA]; E11.9 Type 2 diabetes mellitus without complications; Z79.899 Other long term (current) drug therapy | CPT/HCPCS: 52000; 81003 ==

== ENCOUNTER 2024-02-28 08:34 | Outpatient (REF) | payer BC, SELFPAY ==
[2024-02-28 13:42] LABS: Estimated Average Glucose 186 mg/dL; Hemoglobin A1c % 8.1 % (<6.0)
[2024-02-28 13:48] LABS: Alanine Aminotransferase 40 U/L (0-40); Albumin Level 4.5 g/dL (3.5-5.0); Alkaline Phosphatase 83 U/L (39-117); Anion Gap 18 (12-20); Aspartate Amino Transferase 48 U/L (5-37); Bilirubin Total 0.6 mg/dL (0.0-1.0); Blood Urea Nitrogen 16 mg/dL (9-16); Calcium 10.3 mg/dL (8.4-10.2); Carbon Dioxide 23 mmol/L (22-29); Chloride 106 mmol/L (96-108); Cholesterol 287 mg/dL (<200); Estimated Glomerular Filt Rate 58; Glucose Random 186 mg/dL (60-115); HDL Cholesterol 91 mg/dL (>40); LDL Cholesterol Calculated 166 mg/dL (<100); Potassium 4.8 mmol/L (3.3-5.1); Sodium 142 mmol/L (135-145); Total Protein 8.1 g/dL (6.5-8.0); Triglycerides 150 mg/dL (<150)
== END 2024-02-28 08:35 | disposition home or self-care (01) ==
LOC: HO.MANLDS 08:34
PROVIDERS: Visit Provider Physician Assistant
DX: E11.21 Type 2 diabetes mellitus with diabetic nephropathy (principal)
CPT/HCPCS: 36415; 80053; 80061; 83036

== ENCOUNTER 2024-05-26 08:59 | Outpatient (REF) | payer BC, SELFPAY ==
[2024-05-26 13:34] LABS: Alanine Aminotransferase 48 U/L (0-40); Albumin Level 4.1 g/dL (3.5-5.0); Alkaline Phosphatase 102 U/L (39-117); Anion Gap 13 (12-20); Aspartate Amino Transferase 59 U/L (5-37); Blood Urea Nitrogen 14 mg/dL (9-16); Calcium 9.1 mg/dL (8.4-10.2); Carbon Dioxide 24 mmol/L (22-29); Chloride 102 mmol/L (96-108); Cholesterol 255 mg/dL (<200); Estimated Glomerular Filt Rate > 60; Glucose Random 272 mg/dL (60-115); HDL Cholesterol 77 mg/dL (>40); LDL Cholesterol Calculated 157 mg/dL (<100); Potassium 4.5 mmol/L (3.3-5.1); Sodium 134 mmol/L (135-145); Total Protein 7.5 g/dL (6.5-8.0); Triglycerides 109 mg/dL (<150)
[2024-05-26 13:47] LABS: Estimated Average Glucose 212 mg/dL; Hemoglobin A1C 374.0704 umol/L; Total Hemoglobin (HGBA1C) 5027.4332 umol/L
== END 2024-05-26 09:00 | disposition home or self-care (01) ==
LOC: HO.MANLDS 08:59
PROVIDERS: Visit Provider Physician Assistant
DX: E11.21 Type 2 diabetes mellitus with diabetic nephropathy (principal)
CPT/HCPCS: 36415; 80053; 80061; 83036

== ENCOUNTER 2024-11-21 09:07 | Outpatient (REF) | payer SELFPAY ==
--- OUTSIDE RECORDS SUMMARY | 2024-11-21 09:34 | XMS_ITS | Encounter Summary ---
Author Organization [facility], Address [address] [place] [address] Phone Care Team Providers Care Computerized Machine Fabric Cutter Name Role Phone Socrates Kim DO Primary Care Provider [phone] Encounter Details Date Type Department Care Team (Late st Contact Info) Description 06/15/2023 Documentation Only [facility], - [place] [address] [phone] Luis Kirkpatrick MD [address] [facility] [place] [phone] Social History Tobacco Use Types Packs/Day Years Used Date Smoking Tobacco: Former Cigarettes Alcohol Use Standard Drinks/Week Comments Yes 21 (1 standard drink = 0.6 oz pu re alcohol) Sex and Gender Information Value Date Recorded Sex Assigned at Not on file Legal Sex Male 12:17 PM EDT Gender Identity Not on file Sexual Orientation Not on file documented as of this encounter Plan of Treatment Not on file documented as of this encounter Visit Diagnoses Not on filedocumented in this encounter Care Teams Computerized Machine Fabric Cutter Relationship Specialty Start Date End Date Socrates Kim DO [address] [place] [address],[place] [phone] PCP - General Internal Medicine 10/10/20 documented as of this encounter
--- OUTSIDE RECORDS SUMMARY | 2024-11-21 09:34 | XMS_ITS | Encounter Summary ---
Author Organization [facility], Address [address] [place] [address] Phone Care Team Providers Care Physical Medicine Physician Name Role Phone Socrates Kim DO Primary Care Provider [phone] Encounter Details Date Type Department Care Team (Late st Contact Info) Description 06/15/2023 Documentation Only [facility], - [place] [address] [phone] Luis Kirkpatrick MD [address] [facility] [place] [phone] Social History Tobacco Use Types Packs/Day Years [...] on filedocumented in this encounter Care Teams Physical Medicine Physician Relationship Specialty Start Date End Date Socrates Kim DO [address] [place] [address],[place] [phone] PCP - General Internal Medicine 10/10/20 documented as of this encounter
--- OUTSIDE RECORDS SUMMARY | 2024-11-21 09:34 | XMS_ITS | Encounter Summary ---
Author Organization [facility], Address [address] [place] [address] Phone Care Team Providers Care Block Operator Name Role Phone Socrates Kim DO Primary Care Provider [phone] Encounter Details Date Type Department Care Team (Late st Contact Info) Description 06/15/2023 Documentation Only [facility], - [place] [address] [phone] Luis Kirkpatrick MD [address] [facility] [place] [phone] Social History Tobacco Use Types Packs/Day Years [...] on filedocumented in this encounter Care Teams Block Operator Relationship Specialty Start Date End Date Socrates Kim DO [address] [place] [address],[place] [phone] PCP - General Internal Medicine 10/10/20 documented as of this encounter
--- OUTSIDE RECORDS SUMMARY | 2024-11-21 09:34 | XMS_ITS | Encounter Summary ---
Author Organization [facility], Address [address] [place] [address] Phone Care Team Providers Care Fortune Cookie Maker Name Role Phone Socrates Kim DO Primary Care Provider [phone] Encounter Details Date Type Department Care Team (Late st Contact Info) Description 06/15/2023 Documentation Only [facility], - [place] [address] [phone] Luis Kirkpatrick MD [address] [facility] [place] [phone] Social History Tobacco Use Types Packs/Day Years [...] on filedocumented in this encounter Care Teams Fortune Cookie Maker Relationship Specialty Start Date End Date Socrates Kim DO [address] [place] [address],[place] [phone] PCP - General Internal Medicine 10/10/20 documented as of this encounter
--- OUTSIDE RECORDS SUMMARY | 2024-11-21 09:34 | XMS_ITS | Encounter Summary ---
Author Organization [facility], Address [address] [place] [address] Phone Care Team Providers Care Ticket Dispenser Changer Name Role Phone Socrates Kim DO Primary Care Provider [phone] Encounter Details Date Type Department Care Team (Late st Contact Info) Description 06/10/2023 Documentation Only [facility], - [place] [address] [phone] Luis Kirkpatrick MD [address] [facility] [place] [phone] Social History Tobacco Use Types Packs/Day Years [...] on filedocumented in this encounter Care Teams Ticket Dispenser Changer Relationship Specialty Start Date End Date Socrates Kim DO [address] [place] [address],[place] [phone] PCP - General Internal Medicine 10/10/20 documented as of this encounter
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
--- OUTSIDE RECORDS SUMMARY | 2024-11-21 09:35 | XMS_ITS | Encounter Summary ---
Author Organization [facility], Address [address] [place] [address] Phone Care Team Providers Care Signal Timer Name Role Phone Socrates Kim DO Primary Care Provider [phone] Encounter Details Date Type Department Care Team (Late st Contact Info) Description 06/08/2023 Office Communication [facility], - [place] [address] [phone] Luis Kirkpatrick MD [address] [facility] [place] [phone] Social History Tobacco Use Types Packs/Day Years [...] on filedocumented in this encounter Care Teams Signal Timer Relationship Specialty Start Date End Date Socrates Kim DO [address] [place] [phone] PCP - General Internal Medicine 10/10/20 documented as of this encounter
--- OUTSIDE RECORDS SUMMARY | 2024-11-21 09:35 | XMS_ITS | Encounter Summary ---
Author Organization [facility], Address [address] [place] [address] Phone Care Team Providers Care Middleware Systems Architect Name Role Phone Socrates Kim DO Primary Care Provider [phone] Encounter Details Date Type Department Care Team (Late st Contact Info) Description 10/08/2023 Documentation Only [facility], [address] [place] [address] [address] [place] [address] Social History Tobacco Use Types Packs/Day Years [...] on filedocumented in this encounter Care Teams Middleware Systems Architect Relationship Specialty Start Date End Date Socrates Kim DO [address] [place] [address] PCP - General Internal Medicine 10/10/20 documented as of this encounter
--- OUTSIDE RECORDS SUMMARY | 2024-11-21 09:35 | XMS_ITS | Encounter Summary ---
Author Organization [facility], Address [address] [place] [address] Phone Care Team Providers Care Derrickman Helper Name Role Phone Socrates Kim DO Primary Care Provider [phone] Encounter Details Date Type Department Care Team (Late st Contact Info) Description 10/08/2023 Documentation Only [facility], [address] [place] [address] [address]oll [address] [place] [address] Social History Tobacco Use Types [...] on filedocumented in this encounter Care Teams Derrickman Helper Relationship Specialty Start Date End Date Socrates Kim DO [address] [place] [address] PCP - General Internal Medicine 10/10/20 documented as of this encounter
--- OUTSIDE RECORDS SUMMARY | 2024-11-21 09:35 | XMS_ITS | Encounter Summary ---
Author Organization [facility], Address [address] [place] [address] Phone Care Team Providers Care Entertainment Director Name Role Phone Socrates Kim DO Primary Care Provider Encounter Details Date Type Department Care Team (Late st Contact Info) Description 08/04/2023 Documentation Only [facility], [address] [place] [address] Rody [address]oll [address] [place] [address] Social History Tobacco Use Types [...] on filedocumented in this encounter Care Teams Entertainment Director Relationship Specialty Start Date End Date Socrates Kim DO [address] [place] [address] PCP - General Internal Medicine 10/10/20 documented as of this encounter
--- OUTSIDE RECORDS SUMMARY | 2024-11-21 09:35 | XMS_ITS | Encounter Summary ---
Author Organization [facility], Address [address] [place] [address] Phone Care Team Providers Care Die Cutter Operator Name Role Phone Socrates Kim DO Primary Care Provider [phone] Encounter Details Date Type Department Care Team (Late st Contact Info) Description 06/22/2023 Documentation Only [facility], - [place] [address] [phone] Luis Kirkpatrick MD [address] [facility] [place] [place] [phone] Social History Tobacco Use Types Packs/Day Years [...] on filedocumented in this encounter Care Teams Die Cutter Operator Relationship Specialty Start Date End Date Socrates Kim DO [address] [place] [address],[place] [address] PCP - General Internal Medicine 10/10/20 documented as of this encounter
--- OUTSIDE RECORDS SUMMARY | 2024-11-21 09:35 | XMS_ITS | Encounter Summary ---
Author Organization [facility], Address [address] [place] [address] Phone Care Team Providers Care Shuttle Operator Name Role Phone Socrates Kim DO Primary Care Provider [phone] Encounter Details Date Type Department Care Team (Late st Contact Info) Description 06/22/2023 Documentation Only [facility], - [place] [address] [phone] Luis Kirkpatrick MD [address] [facility] [place] [phone] Social History Tobacco Use Types Packs/Day Years [...] on filedocumented in this encounter Care Teams Shuttle Operator Relationship Specialty Start Date End Date Socrates Kim DO [address] [place] [address],[place] [address] PCP - General Internal Medicine 10/10/20 documented as of this encounter
--- OUTSIDE RECORDS SUMMARY | 2024-11-21 09:35 | XMS_ITS | Encounter Summary ---
Author Organization [facility], Address [address] [place] [address] Phone Care Team Providers Care Admissions Manager Rn Name Role Phone Socrates Kim DO Primary Care Provider [phone] Encounter Details Date Type Department Care Team (Late st Contact Info) Description 06/15/2023 Documentation Only [facility], - [place] [address] [phone] Luis Kirkpatrick MD [address] [facility] [place] [phone] Social History Tobacco Use Types Packs/Day Years [...] on filedocumented in this encounter Care Teams Admissions Manager Rn Relationship Specialty Start Date End Date Socrates Kim DO [address] [place] [address],[place] [address] PCP - General Internal Medicine 10/10/20 documented as of this encounter
--- OUTSIDE RECORDS SUMMARY | 2024-11-21 09:35 | XMS_ITS | Encounter Summary ---
Author Organization [facility], Address [address] [place] [address] Phone Care Team Providers Care Communications Tech Name Role Phone Socrates Kim DO Primary Care Provider [phone] Encounter Details Date Type Department Care Team (Late st Contact Info) Description 10/08/2023 Documentation Only [facility], [address] [place] [address] Rody [address]oll [address] [place] [address] Social History Tobacco Use Types [...] on filedocumented in this encounter Care Teams Communications Tech Relationship Specialty Start Date End Date Socrates Kim DO [address] [place] [address] PCP - General Internal Medicine 10/10/20 documented as of this encounter
--- OUTSIDE RECORDS SUMMARY | 2024-11-21 09:35 | XMS_ITS | Encounter Summary ---
Author Organization [facility], Address [address] [place] [address] Phone Care Team Providers Care Sports Marketing Specialist Name Role Phone Julio Socrates HERNÁNDEZ Primary Care Provider [phone] Encounter Details Date Type Department Care Team (Late st Contact Info) Description 08/20/2023 Orders Only [facility], - [place] [address] [phone] Luis Kirkpatrick MD [address] [facility] [place] [phone] Stage 5 chronic kidney disease (HCC) Social History Tobacco Use Types Packs/Day Years [...] documented as of this encounter Visit Diagnoses Diagnosis Stage 5 chronic kidney disease (HCC) documented in this encounter Care Teams Sports Marketing Specialist Relationship Specialty Start Date End Date Socrates Kim DO 6 [facility] [place] [phone] PCP - General Internal Medicine 10/10/20 documented as of this encounter
--- OUTSIDE RECORDS SUMMARY | 2024-11-21 09:35 | XMS_ITS | Encounter Summary ---
Author Organization [facility], Address [address] [place] [address] Phone Care Team Providers Care Banking Management Consulting Manager Name Role Phone Socrates Kim DO Primary Care Provider [phone] Encounter Details Date Type Department Care Team (Late st Contact Info) Description 06/22/2023 Documentation Only [facility], - [place] [address] [phone] Luis Kirkpatrick MD [address] [facility] [place] [phone] Social History Tobacco Use Types Packs/Day Years [...] on filedocumented in this encounter Care Teams Banking Management Consulting Manager Relationship Specialty Start Date End Date Socrates Kim DO [address] [place] [address],[place] [address] PCP - General Internal Medicine 10/10/20 documented as of this encounter
--- OUTSIDE RECORDS SUMMARY | 2024-11-21 09:35 | XMS_ITS | Encounter Summary ---
Author Organization [facility], Address [address] [place] [address] Phone Care Team Providers Care Bindery Machine Setter Name Role Phone Socrates Kim DO Primary Care Provider [phone] Encounter Details Date Type Department Care Team (Late st Contact Info) Description 07/06/2023 Documentation Only [facility], - [place] [address] [phone] Luis Kirkpatrick MD [address] [facility] [place] [phone] Social History Tobacco Use Types Packs/Day Years [...] on filedocumented in this encounter Care Teams Bindery Machine Setter Relationship Specialty Start Date End Date Socrates Kim DO [address] [place] [address],[place] [address] PCP - General Internal Medicine 10/10/20 documented as of this encounter
--- OUTSIDE RECORDS SUMMARY | 2024-11-21 09:35 | XMS_ITS | Encounter Summary ---
Author Organization [facility], Address [address] [place] [address] Phone Care Team Providers Care Manager User Interface Name Role Phone Socrates Kim DO Primary Care Provider [phone] Encounter Details Date Type Department Care Team (Late st Contact Info) Description 06/15/2023 Documentation Only [facility], - [place] [address] [phone] Luis Kirkpatrick MD [address] [facility] [place] [phone] Social History Tobacco Use Types Packs/Day Years [...] on filedocumented in this encounter Care Teams Manager User Interface Relationship Specialty Start Date End Date Socrates Kim DO [address] [place] [address],[place] [phone] PCP - General Internal Medicine 10/10/20 documented as of this encounter
--- OUTSIDE RECORDS SUMMARY | 2024-11-21 09:35 | XMS_ITS | Encounter Summary ---
Author Organization [facility], Address [address] [place] [address] Phone Care Team Providers Care Passenger Train Braker Name Role Phone Socrates Kim DO Primary Care Provider [phone] Encounter Details Date Type Department Care Team (Late st Contact Info) Description 07/06/2023 Documentation Only [facility], - [place] [address] [phone] Luis Kirkpatrick MD [address] [facility] [place] [phone] Social History Tobacco Use Types Packs/Day Years [...] on filedocumented in this encounter Care Teams Passenger Train Braker Relationship Specialty Start Date End Date Socrates Kim DO [address] [place] [address],[place] [address] PCP - General Internal Medicine 10/10/20 documented as of this encounter
--- OUTSIDE RECORDS SUMMARY | 2024-11-21 09:35 | XMS_ITS | Encounter Summary ---
Author Organization [facility], Address [address] [place] [address] Phone Care Team Providers Care Perlite Grinder Name Role Phone Socrates Kim DO Primary Care Provider Encounter Details Date Type Department Care Team (Late st Contact Info) Description 07/09/2023 Orders Only [facility], - [place] [address] [phone] Luis Kirkpatrick MD [address] [facility] [place] [phone] Stage 5 chronic kidney disease (HCC) Social [...] (HCC) documented in this encounter Care Teams Perlite Grinder Relationship Specialty Start Date End Date Socrates Kim DO [address] [facility] [phone] PCP - General Internal Medicine 10/10/20 documented as of this encounter
--- OUTSIDE RECORDS SUMMARY | 2024-11-21 09:35 | XMS_ITS | Encounter Summary ---
Author Organization [facility], Address [address] [place] [address] Phone Care Team Providers Care Hardware Engineering Manager Name Role Phone Socrates Kim DO Primary Care Provider [phone] Encounter Details Date Type Department Care Team (Late st Contact Info) Description 08/09/2023 Documentation Only [facility], [address] [place] [address] R[address]oll [address] [place] [address] Social History Tobacco Use Types [...] on filedocumented in this encounter Care Teams Hardware Engineering Manager Relationship Specialty Start Date End Date Socrates Kim DO [address] [place] [address] PCP - General Internal Medicine 10/10/20 documented as of this encounter
--- OUTSIDE RECORDS SUMMARY | 2024-11-21 09:35 | XMS_ITS | Encounter Summary ---
Author Organization [facility], Address [address] [place] [address] Phone Care Team Providers Care Sanitarian Inspector Name Role Phone Socrates Kim DO Primary Care Provider [phone] Encounter Details Date Type Department Care Team (Late st Contact Info) Description 07/06/2023 Documentation Only [facility], - [place] [address] [phone] Luis Kirkpatrick MD [address] [facility] [place] [phone] Social History Tobacco Use Types Packs/Day Years [...] on filedocumented in this encounter Care Teams Sanitarian Inspector Relationship Specialty Start Date End Date Socrates Kim DO [address] [place] [address],[place] [address] PCP - General Internal Medicine 10/10/20 documented as of this encounter
--- OUTSIDE RECORDS SUMMARY | 2024-11-21 09:35 | XMS_ITS | Encounter Summary ---
Author Organization [facility], Address [address] [place] [address] Phone Care Team Providers Care Master Deputy Sheriff Court Security Name Role Phone Socrates Kim DO Primary Care Provider Encounter Details Date Type Department Care Team (Late st Contact Info) Description 10/11/2023 Documentation Only [facility], [address] [place] [address] R[address]oll [address] [place] [address] Social History Tobacco Use Types [...] on filedocumented in this encounter Care Teams Master Deputy Sheriff Court Security Relationship Specialty Start Date End Date Socrates Kim DO [address] [place] [address] PCP - General Internal Medicine 10/10/20 documented as of this encounter
--- OUTSIDE RECORDS SUMMARY | 2024-11-21 09:35 | XMS_ITS | Encounter Summary ---
Author Organization [facility], Address [address] [place] [address] Phone Care Team Providers Care Employment Programs Analyst Name Role Phone Socrates Kim DO Primary Care Provider [phone] Encounter Details Date Type Department Care Team (Late st Contact Info) Description 07/06/2023 Documentation Only [facility], - [place] [address] [phone] Luis Kirkpatrick MD [address] [facility] [place] [phone] Social History Tobacco Use Types Packs/Day Years [...] on filedocumented in this encounter Care Teams Employment Programs Analyst Relationship Specialty Start Date End Date Socrates Kim DO [address] [place] [address],[place] [address] PCP - General Internal Medicine 10/10/20 documented as of this encounter
--- OUTSIDE RECORDS SUMMARY | 2024-11-21 09:35 | XMS_ITS | Encounter Summary ---
Author Organization [facility], Address [address] [place] [address] Phone Care Team Providers Care Certified Nursing Assistant Name Role Phone Socrates Kim DO Primary Care Provider [phone] Encounter Details Date Type Department Care Team (Late st Contact Info) Description 07/06/2023 Documentation Only [facility], - [place] [address] [phone] Luis Kirkpatrick MD [address] [facility] [place] [phone] Social History Tobacco Use Types Packs/Day Years [...] on filedocumented in this encounter Care Teams Certified Nursing Assistant Relationship Specialty Start Date End Date Socrates Kim DO [address] [place] [address],[place] [address] PCP - General Internal Medicine 10/10/20 documented as of this encounter
--- OUTSIDE RECORDS SUMMARY | 2024-11-21 09:35 | XMS_ITS | Encounter Summary ---
Author Organization [facility], Address [address] [place] [address] Phone Care Team Providers Care Subsorter Name Role Phone Socrates Kim DO Primary Care Provider [phone] Encounter Details Date Type Department Care Team (Late st Contact Info) Description 06/22/2023 Documentation Only [facility], - [place] [address] [phone] Luis Kirkpatrick MD [address] [facility] [place] [phone] Social History Tobacco Use Types Packs/Day Years [...] on filedocumented in this encounter Care Teams Subsorter Relationship Specialty Start Date End Date Socrates Kim DO [address] [place] [address],[place] [phone] PCP - General Internal Medicine 10/10/20 documented as of this encounter
--- OUTSIDE RECORDS SUMMARY | 2024-11-21 09:35 | XMS_ITS | Encounter Summary ---
Author Organization [facility], Address [address] [place] [address] Phone Care Team Providers Care Supervisor Intelligence Analyst Name Role Phone Socrates Kim DO Primary Care Provider [phone] Encounter Details Date Type Department Care Team (Late st Contact Info) Description 06/18/2023 Documentation Only [facility], - [place] [address] [phone] Luis Kirkpatrick MD [address] [facility] [place] [phone] Social History Tobacco Use Types Packs/Day Years [...] on filedocumented in this encounter Care Teams Supervisor Intelligence Analyst Relationship Specialty Start Date End Date Socrates Kim DO [address] [place] [address],[place] [phone] PCP - General Internal Medicine 10/10/20 documented as of this encounter
--- OUTSIDE RECORDS SUMMARY | 2024-11-21 09:35 | XMS_ITS | Encounter Summary ---
Author Organization [facility], Address [address] [place] [address] Phone Care Team Providers Care Buhr Dresser Name Role Phone Socrates Kim DO Primary Care Provider [phone] Encounter Details Date Type Department Care Team (Late st Contact Info) Description 05/31/2023 Documentation Only [facility], - [place] [address] [phone] Luis Kirkpatrick MD [address] [facility] [place] [phone] Social History Tobacco Use Types Packs/Day Years [...] on filedocumented in this encounter Care Teams Buhr Dresser Relationship Specialty Start Date End Date Socrates Kim DO [address] [place] [address],[place] [address] PCP - General Internal Medicine 10/10/20 documented as of this encounter
--- OUTSIDE RECORDS SUMMARY | 2024-11-21 09:35 | XMS_ITS | Encounter Summary ---
Author Organization [facility], Address [address] [place] [address] Phone Care Team Providers Care Locomotive Engineer Electric Name Role Phone Socrates Kim DO Primary Care Provider [phone] Encounter Details Date Type Department Care Team (Late st Contact Info) Description 10/11/2023 Documentation Only [facility], [address] [place] [address] R[address]oll [address] [place] [address] Social History Tobacco Use Types [...] on filedocumented in this encounter Care Teams Locomotive Engineer Electric Relationship Specialty Start Date End Date Socrates Kim DO [address] [place] [address] PCP - General Internal Medicine 10/10/20 documented as of this encounter
--- OUTSIDE RECORDS SUMMARY | 2024-11-21 09:35 | XMS_ITS | Encounter Summary ---
Author Organization [facility], Address [address] [place] [address] Phone Care Team Providers Care Template Reproduction Technician Name Role Phone Socrates Kim DO Primary Care Provider [phone] Encounter Details Date Type Department Care Team (Late st Contact Info) Description 06/18/2023 Documentation Only [facility], - [place] [address] [phone] Luis Kirkpatrick MD [address] [facility] [place] [phone] Social History Tobacco Use Types Packs/Day Years [...] on filedocumented in this encounter Care Teams Template Reproduction Technician Relationship Specialty Start Date End Date Socrates Kim DO [address] [place] [address],[place] [address] PCP - General Internal Medicine 10/10/20 documented as of this encounter
--- OUTSIDE RECORDS SUMMARY | 2024-11-21 09:35 | XMS_ITS | Encounter Summary ---
Author Organization [facility], Address [address] [place] [address] Phone Care Team Providers Care Sales And Service Consultant Name Role Phone Socrates Kim DO Primary Care Provider [phone] Encounter Details Date Type Department Care Team (Late st Contact Info) Description 06/18/2023 Orders Only [facility], - [place] [address] [phone] Luis Kirkpatrick MD [address] [facility] [place] [phone] Stage 5 chronic kidney disease (HCC) Social [...] (HCC) documented in this encounter Care Teams Sales And Service Consultant Relationship Specialty Start Date End Date Socrates Kim DO [address] [facility] [phone] PCP - General Internal Medicine 10/10/20 documented as of this encounter
--- OUTSIDE RECORDS SUMMARY | 2024-11-21 09:35 | XMS_ITS | Encounter Summary ---
Author Organization [facility], Address [address] [place] [address] Phone Care Team Providers Care Palletizer Operator Name Role Phone Socrates Kim DO Primary Care Provider [phone] Encounter Details Date Type Department Care Team (Late st Contact Info) Description 07/09/2023 Documentation Only [facility], - [place] [address] [phone] Luis Kirkpatrick MD [address] [facility] [place] [phone] Social History Tobacco Use Types Packs/Day Years [...] on filedocumented in this encounter Care Teams Palletizer Operator Relationship Specialty Start Date End Date Socrates Kim DO [address] [place] [address],[place] [phone] PCP - General Internal Medicine 10/10/20 documented as of this encounter
--- OUTSIDE RECORDS SUMMARY | 2024-11-21 09:35 | XMS_ITS | Encounter Summary ---
Author Organization [facility] [place], Address [address] [place] [address] Phone Care Team Providers Care Matrix Plater Name Role Phone Socrates Kim DO Primary Care Provider Encounter Details Date Type Department Care Team (Late st Contact Info) Description 06/15/2023 Documentation Only [facility] [place], - [place] [address] [phone] Luis Kirkpatrick MD [address] [facility] [place] [phone] Social History Tobacco Use Types Packs/Day Years [...] on filedocumented in this encounter Care Teams Matrix Plater Relationship Specialty Start Date End Date Socrates Kim DO [address] [place] [address],[place] [address] PCP - General Internal Medicine 10/10/20 documented as of this encounter
--- OUTSIDE RECORDS SUMMARY | 2024-11-21 09:35 | XMS_ITS | Encounter Summary ---
Author Organization [facility] [place], Address [address] [place] [address] Phone Care Team Providers Care Liquor Maker Name Role Phone Socrates Kim DO Primary Care Provider [phone] Encounter Details Date Type Department Care Team (Late st Contact Info) Description 10/08/2023 Documentation Only [facility] [place], [address] [place] [address] [address] [place] [address] Social History Tobacco Use Types [...] on filedocumented in this encounter Care Teams Liquor Maker Relationship Specialty Start Date End Date Socrates Kim DO [address] [place] [address] PCP - General Internal Medicine 10/10/20 documented as of this encounter
--- OUTSIDE RECORDS SUMMARY | 2024-11-21 09:35 | XMS_ITS | Encounter Summary ---
Author Organization [facility] [place], Address [address] [place] [address] Phone Care Team Providers Care Edge Setter Name Role Phone Julio Socrates HERNÁNDEZ Primary Care Provider [phone] Encounter Details Date Type Department Care Team (Late st Contact Info) Description 08/13/2023 Orders Only [facility] [place], - [place] [address] [phone] Luis Kirkpatrick MD [address] [facility] [place] [phone] Stage 5 chronic kidney disease (HCC) Social [...] (HCC) documented in this encounter Care Teams Edge Setter Relationship Specialty Start Date End Date Socrates Kim DO 6 [facility] [phone] PCP - General Internal Medicine 10/10/20 documented as of this encounter
--- OUTSIDE RECORDS SUMMARY | 2024-11-21 09:35 | XMS_ITS | Encounter Summary ---
Author Organization [facility] [place], Address [address] [place] [address] Phone Care Team Providers Care Pest Control Service Representative Name Role Phone Socrates Kim DO Primary Care Provider [phone] Encounter Details Date Type Department Care Team (Late st Contact Info) Description 08/09/2023 Documentation Only [facility] [place], [address] [place] [address] [address] [place] [address] Social History Tobacco Use Types [...] on filedocumented in this encounter Care Teams Pest Control Service Representative Relationship Specialty Start Date End Date Socrates Kim DO [address] [place] [address] PCP - General Internal Medicine 10/10/20 documented as of this encounter
--- OUTSIDE RECORDS SUMMARY | 2024-11-21 09:35 | XMS_ITS | Encounter Summary ---
Author Organization [facility] [place], Address [address] [place] [address] Phone Care Team Providers Care Trench Shovel Operator Name Role Phone Socrates Kim DO Primary Care Provider [phone] Encounter Details Date Type Department Care Team (Late st Contact Info) Description 08/04/2023 Documentation Only [facility] [place], [address] [place] [address] [address] [place] [address] Social History Tobacco Use Types [...] on filedocumented in this encounter Care Teams Trench Shovel Operator Relationship Specialty Start Date End Date Socrates Kim DO [address] [place] [address] PCP - General Internal Medicine 10/10/20 documented as of this encounter
--- OUTSIDE RECORDS SUMMARY | 2024-11-21 09:35 | XMS_ITS | Encounter Summary ---
Author Organization [facility] [place], Address [address] [place] [address] Phone Care Team Providers Care Jig Box Operator Name Role Phone Socrates Kim DO Primary Care Provider [phone] Encounter Details Date Type Department Care Team (Late st Contact Info) Description 10/08/2023 Documentation Only [facility] [place], [address] [place] [address] [address] [place] [address] Social History Tobacco Use Types [...] on filedocumented in this encounter Care Teams Jig Box Operator Relationship Specialty Start Date End Date Socrates Kim DO [address] [place] [address] PCP - General Internal Medicine 10/10/20 documented as of this encounter
--- OUTSIDE RECORDS SUMMARY | 2024-11-21 09:35 | XMS_ITS | Encounter Summary ---
Author Organization [facility] [place], Address [address] [place] [address] Phone Care Team Providers Care Adjunct English Instructor Name Role Phone Socrates Kim DO Primary Care Provider [phone] Encounter Details Date Type Department Care Team (Late st Contact Info) Description 06/08/2023 Documentation Only [facility] [place], - [place] [address] [phone] Luis Kirkpatrick MD [address] [facility] [place] [phone] Social History Tobacco Use Types Packs/Day Years [...] on filedocumented in this encounter Care Teams Adjunct English Instructor Relationship Specialty Start Date End Date Socrates Kim DO [address] [place] [address],[place] [address] PCP - General Internal Medicine 10/10/20 documented as of this encounter
--- OUTSIDE RECORDS SUMMARY | 2024-11-21 09:35 | XMS_ITS | Encounter Summary ---
Author Organization [facility] [place], Address [address] [place] [address] Phone Care Team Providers Care Cool Roofing Installer Name Role Phone Socrates Kim DO Primary Care Provider [phone] Encounter Details Date Type Department Care Team (Late st Contact Info) Description 07/06/2023 Documentation Only [facility] [place] [place], - [place] [address] [phone] Luis Kirkpatrick MD [address] [facility] [place] [phone] Social History Tobacco Use Types Packs/Day Years [...] on filedocumented in this encounter Care Teams Cool Roofing Installer Relationship Specialty Start Date End Date Socrates Kim DO [address] [place] [address],[place] [address] PCP - General Internal Medicine 10/10/20 documented as of this encounter
--- OUTSIDE RECORDS SUMMARY | 2024-11-21 09:35 | XMS_ITS | Encounter Summary ---
Author Organization [facility] [place], Address [address] [place] [address] Phone Care Team Providers Care Tacker Off Name Role Phone Socrates Kim DO Primary Care Provider [phone] Encounter Details Date Type Department Care Team (Late st Contact Info) Description 08/06/2023 Documentation Only [facility] [place], [address] [place] [address] [address] [place] [address] Social History Tobacco Use Types [...] on filedocumented in this encounter Care Teams Tacker Off Relationship Specialty Start Date End Date Socrates Kim DO [address] [place] [address] PCP - General Internal Medicine 10/10/20 documented as of this encounter
--- OUTSIDE RECORDS SUMMARY | 2024-11-21 09:35 | XMS_ITS | Encounter Summary ---
Author Organization [facility] [place], Address [address] [place] [address] Phone Care Team Providers Care Materials Director Name Role Phone Julio Socrates HERNÁNDEZ Primary Care Provider [phone] Encounter Details Date Type Department Care Team (Late st Contact Info) Description 08/06/2023 Orders Only [facility], - [place] [address] [phone] Luis Kirkpatrick MD [address] [facility] [place] [phone] Stage 5 chronic kidney disease (HCC) Social [...] (HCC) documented in this encounter Care Teams Materials Director Relationship Specialty Start Date End Date Socrates Kim DO 6 [facility] [phone] PCP - General Internal Medicine 10/10/20 documented as of this encounter
--- OUTSIDE RECORDS SUMMARY | 2024-11-21 09:35 | XMS_ITS | Encounter Summary ---
Author Organization [facility] [place], Address [address] [place] [address] Phone Care Team Providers Care Mammalogist Name Role Phone Socrates Kim DO Primary Care Provider [phone] Encounter Details Date Type Department Care Team (Late st Contact Info) Description 06/22/2023 Documentation Only [facility] [place], - [place] [address] [phone] Luis Kirkpatrick MD [address] [facility] [place] [phone] Social History Tobacco Use Types Packs/Day Years [...] on filedocumented in this encounter Care Teams Mammalogist Relationship Specialty Start Date End Date Socrates Kim DO [address] [place] [address],[place] [address] PCP - General Internal Medicine 10/10/20 documented as of this encounter
--- OUTSIDE RECORDS SUMMARY | 2024-11-21 09:35 | XMS_ITS | Encounter Summary ---
Author Organization [facility] [place], Address [address] [place] [address] Phone Care Team Providers Care Surg Rn Name Role Phone Socrates Kim DO Primary Care Provider [phone] Encounter Details Date Type Department Care Team (Late st Contact Info) Description 06/18/2023 Documentation Only [facility] [place], - [place] [address] [phone] Luis Kirkpatrick MD [address] [facility] [place] [phone] Social History Tobacco Use Types Packs/Day Years [...] on filedocumented in this encounter Care Teams Surg Rn Relationship Specialty Start Date End Date Socrates Kim DO [address] [place] [address],[place] [address] PCP - General Internal Medicine 10/10/20 documented as of this encounter
--- OUTSIDE RECORDS SUMMARY | 2024-11-21 09:35 | XMS_ITS | Encounter Summary ---
Author Organization [facility] [place], Address [address] [place] [address] Phone Care Team Providers Care Butter Wrapper Name Role Phone Socrates Kim DO Primary Care Provider [phone] Encounter Details Date Type Department Care Team (Late st Contact Info) Description 08/04/2023 Documentation Only [facility] [place], [address] [place] [address] [address] [place] [address] Social History Tobacco Use Types [...] on filedocumented in this encounter Care Teams Butter Wrapper Relationship Specialty Start Date End Date Socrates Kim DO [address] [place] [address] PCP - General Internal Medicine 10/10/20 documented as of this encounter
--- OUTSIDE RECORDS SUMMARY | 2024-11-21 09:35 | XMS_ITS | Encounter Summary ---
Author Organization [facility] [place], Address [address] [place] [address] Phone Care Team Providers Care Director Of Strategic Partnerships Name Role Phone Socrates Kim DO Primary Care Provider [phone] Encounter Details Date Type Department Care Team (Late st Contact Info) Description 06/16/2023 Documentation Only [facility] [place], - [place] [address] [phone] Luis Kirkpatrick MD [address] [facility] [place] [phone] Social History Tobacco Use Types Packs/Day Years [...] on filedocumented in this encounter Care Teams Director Of Strategic Partnerships Relationship Specialty Start Date End Date Socrates Kim DO [address] [place] [address],[place] [address] PCP - General Internal Medicine 10/10/20 documented as of this encounter
--- OUTSIDE RECORDS SUMMARY | 2024-11-21 09:35 | XMS_ITS | Encounter Summary ---
Author Organization [facility] [place], Address [address] [place] [address] Phone Care Team Providers Care Diamond Cutter Name Role Phone Socrates Kim DO Primary Care Provider [phone] Encounter Details Date Type Department Care Team (Late st Contact Info) Description 10/08/2023 Documentation Only [facility] [place], [address] [place] [address] [address] [place] [address] Social History Tobacco Use Types [...] on filedocumented in this encounter Care Teams Diamond Cutter Relationship Specialty Start Date End Date Socrates Kim DO [address] [place] [address] PCP - General Internal Medicine 10/10/20 documented as of this encounter
--- OUTSIDE RECORDS SUMMARY | 2024-11-21 09:35 | XMS_ITS | Encounter Summary ---
Author Organization [facility], Address [address] [place] [address] Phone Care Team Providers Care Rfid Systems Engineer Name Role Phone Socrates Kim DO Primary Care Provider [phone] Encounter Details Date Type Department Care Team (Late st Contact Info) Description 06/11/2023 Orders Only [facility], - [place] [address] [phone] Luis Kirkpatrick MD [address] [facility] [place] [phone] Stage 5 chronic kidney disease (HCC) Social [...] (HCC) documented in this encounter Care Teams Rfid Systems Engineer Relationship Specialty Start Date End Date Socrates Kim DO 6 [facility] [phone] PCP - General Internal Medicine 10/10/20 documented as of this encounter
--- OUTSIDE RECORDS SUMMARY | 2024-11-21 09:35 | XMS_ITS | Encounter Summary ---
Author Organization [facility] [place], Address [address] [place] [address] Phone Care Team Providers Care Rock Mason Apprentice Name Role Phone Socrates Kim DO Primary Care Provider [phone] Encounter Details Date Type Department Care Team (Late st Contact Info) Description 07/06/2023 Documentation Only [facility] [place], - [place] [address] [phone] Luis Kirkpatrick MD [address] [facility] [place] [phone] Social History Tobacco Use Types Packs/Day Years [...] on filedocumented in this encounter Care Teams Rock Mason Apprentice Relationship Specialty Start Date End Date Socrates Kim DO [address] [place] [address],[place] [address] PCP - General Internal Medicine 10/10/20 documented as of this encounter
--- OUTSIDE RECORDS SUMMARY | 2024-11-21 09:36 | XMS_ITS | Encounter Summary ---
Author Organization [facility] [place], Address [address] [place] [address] Phone Care Team Providers Care Coder Name Role Phone Socrates Kim DO Primary Care Provider [phone] Encounter Details Date Type Department Care Team (Late st Contact Info) Description 07/06/2023 Documentation Only [facility], - [place] [address] [phone] Luis Kirkpatrick MD [address] [facility] [place] [phone] Social History Tobacco Use Types Packs/Day Years [...] on filedocumented in this encounter Care Teams Coder Relationship Specialty Start Date End Date Socrates Kim DO [address] [place] [address],[place] [address] PCP - General Internal Medicine 10/10/20 documented as of this encounter
--- OUTSIDE RECORDS SUMMARY | 2024-11-21 09:36 | XMS_ITS | Encounter Summary ---
Author Organization [facility] [place], Address [address] [place] [address] Phone Care Team Providers Care Worm Grower Name Role Phone Socrates Kim DO Primary Care Provider [phone] Encounter Details Date Type Department Care Team (Late st Contact Info) Description 06/28/2023 Documentation Only [facility] [place], - [place] [address] [phone] Luis Kirkpatrick MD [address] [facility] [place] [phone] Social History Tobacco Use Types Packs/Day Years [...] on filedocumented in this encounter Care Teams Worm Grower Relationship Specialty Start Date End Date Socrates Kim DO [address] [place] [address],[place] [address] PCP - General Internal Medicine 10/10/20 documented as of this encounter
--- OUTSIDE RECORDS SUMMARY | 2024-11-21 09:36 | XMS_ITS | Encounter Summary ---
Author Organization [facility] [place], Address [address] [place] [address] Phone Care Team Providers Care Station Cashier Name Role Phone Socrates Kim DO Primary Care Provider [phone] Encounter Details Date Type Department Care Team (Late st Contact Info) Description 06/22/2023 Documentation Only [facility] [place], - [place] [address] [phone] Luis Kirkpatrick MD [address] [facility] [place] [phone] Social History Tobacco Use Types Packs/Day Years [...] on filedocumented in this encounter Care Teams Station Cashier Relationship Specialty Start Date End Date Socraets Kim DO [address] [place] [address],[place] [address] PCP - General Internal Medicine 10/10/20 documented as of this encounter
--- OUTSIDE RECORDS SUMMARY | 2024-11-21 09:36 | XMS_ITS | Encounter Summary ---
Author Organization [facility] [place], Address [address] [place] [address] Phone Care Team Providers Care Fixed Wing Pilot Name Role Phone Socrates Kim DO Primary Care Provider [phone] Encounter Details Date Type Department Care Team (Late st Contact Info) Description 07/06/2023 Documentation Only [facility] [place], - [place] [address] [phone] Luis Kirkpatrick MD [address] [facility] [place] [phone] Social History Tobacco Use Types Packs/Day Years [...] on filedocumented in this encounter Care Teams Fixed Wing Pilot Relationship Specialty Start Date End Date Socrates Kim DO [address] [place] [address],[place] [phone] PCP - General Internal Medicine 10/10/20 documented as of this encounter
--- OUTSIDE RECORDS SUMMARY | 2024-11-21 09:36 | XMS_ITS | Encounter Summary ---
Author Organization [facility] [place], Address [address] [place] [address] Phone Care Team Providers Care Wood Filler Name Role Phone Socrates Kim DO Primary Care Provider [phone] Encounter Details Date Type Department Care Team (Late st Contact Info) Description 07/01/2023 Documentation Only [facility] [place], - [place] [address] [phone] Luis Kirkpatrick MD [address] [facility] [place] [phone] Social History Tobacco Use Types Packs/Day Years [...] on filedocumented in this encounter Care Teams Wood Filler Relationship Specialty Start Date End Date Socrates Kim DO [address] [place] [address],[place] [phone] PCP - General Internal Medicine 10/10/20 documented as of this encounter
--- OUTSIDE RECORDS SUMMARY | 2024-11-21 09:36 | XMS_ITS | Encounter Summary ---
Author Organization [facility] [place], Address [address] [place] [address] Phone Care Team Providers Care Marketing Support Coordinator Name Role Phone Socrates Kim DO Primary Care Provider Encounter Details Date Type Department Care Team (Late st Contact Info) Description 06/28/2023 Documentation Only [facility] [place], - [place] [address] [phone] Luis Kirkpatrick MD [address] [facility] [place] [phone] Social History Tobacco Use Types Packs/Day Years [...] on filedocumented in this encounter Care Teams Marketing Support Coordinator Relationship Specialty Start Date End Date Socrates Kim DO [address] [place] [address],[place] [address] PCP - General Internal Medicine 10/10/20 documented as of this encounter
--- OUTSIDE RECORDS SUMMARY | 2024-11-21 09:36 | XMS_ITS | Encounter Summary ---
Author Organization [facility] [place], Address [address] [place] [address] Phone Care Team Providers Care Printing Machine Mechanic Name Role Phone Julio Socrates HERNÁNDEZ Primary Care Provider [phone] Encounter Details Date Type Department Care Team (Late st Contact Info) Description 07/30/2023 Orders Only [facility] [place], - [place] [address] [phone] Luis Kirkpatrick MD [address] [facility] [place] [phone] Stage 5 chronic kidney disease (HCC) Social [...] (HCC) documented in this encounter Care Teams Printing Machine Mechanic Relationship Specialty Start Date End Date Socrates Kim DO 6 [facility] [place] [phone] PCP - General Internal Medicine 10/10/20 documented as of this encounter
--- OUTSIDE RECORDS SUMMARY | 2024-11-21 09:36 | XMS_ITS | Encounter Summary ---
Author Organization [facility] [place], Address [address] [place] [address] Phone Care Team Providers Care Magnetic Testing Technician Name Role Phone Socrates Kim DO Primary Care Provider [phone] Encounter Details Date Type Department Care Team (Late st Contact Info) Description 07/06/2023 Documentation Only [facility] [place], - [place] [address] [phone] Luis Kirkpatrick MD [address] [facility] [place] [phone] Social History Tobacco Use Types Packs/Day Years [...] on filedocumented in this encounter Care Teams Magnetic Testing Technician Relationship Specialty Start Date End Date Socrates Kim DO [address] [place] [address],[place] [address] PCP - General Internal Medicine 10/10/20 documented as of this encounter
--- OUTSIDE RECORDS SUMMARY | 2024-11-21 09:36 | XMS_ITS | Encounter Summary ---
Author Organization [facility] [place], Address [address] [place] [address] Phone Care Team Providers Care Aircraft Accessories Mechanic Name Role Phone Socrates Kim DO Primary Care Provider [phone] Encounter Details Date Type Department Care Team (Late st Contact Info) Description 06/30/2023 Documentation Only [facility] [place], - [place] [address] [phone] Luis Kirkpartick MD [address] [facility] [place] [phone] Social History Tobacco Use Types Packs/Day Years [...] on filedocumented in this encounter Care Teams Aircraft Accessories Mechanic Relationship Specialty Start Date End Date Socrates Kim DO [address] [place] [address],[place] [address] PCP - General Internal Medicine 10/10/20 documented as of this encounter
--- OUTSIDE RECORDS SUMMARY | 2024-11-21 09:36 | XMS_ITS | Encounter Summary ---
Author Organization [facility], Address [address] [place] [address] Phone Care Team Providers Care Cyber Special Agent Name Role Phone Socrates Kim DO Primary Care Provider [phone] Encounter Details Date Type Department Care Team (Late st Contact Info) Description 06/28/2023 Documentation Only [facility], - [place] [address] [phone] Luis Kirkpatrick MD [address] [facility] [place] [phone] Social History Tobacco Use Types Packs/Day Years [...] on filedocumented in this encounter Care Teams Cyber Special Agent Relationship Specialty Start Date End Date Socrates Kim DO [address] [place] [address],[place] [phone] PCP - General Internal Medicine 10/10/20 documented as of this encounter
--- OUTSIDE RECORDS SUMMARY | 2024-11-21 09:36 | XMS_ITS | Encounter Summary ---
Author Organization [facility], Address [address] [place] [address] Phone Care Team Providers Care Farm Products Shipper Name Role Phone Socrates Kim DO Primary Care Provider [phone] Encounter Details Date Type Department Care Team (Late st Contact Info) Description 07/06/2023 Documentation Only [facility], - [place] [address] [phone] Luis Kirkpatrick MD [address] [facility] [place] [phone] Social History Tobacco Use Types Packs/Day Years [...] on filedocumented in this encounter Care Teams Farm Products Shipper Relationship Specialty Start Date End Date Socrates Kim DO [address] [place] [address],[place] [address] PCP - General Internal Medicine 10/10/20 documented as of this encounter
--- OUTSIDE RECORDS SUMMARY | 2024-11-21 09:36 | XMS_ITS | Encounter Summary ---
Author Organization [facility], Address [address] [place] [address] Phone Care Team Providers Care Route Delivery Manager Name Role Phone Socrates Kim DO Primary Care Provider [phone] Encounter Details Date Type Department Care Team (Late st Contact Info) Description 08/04/2023 Documentation Only [facility], [address] [place] [address] [address] [place] [address] Social History Tobacco Use Types [...] on filedocumented in this encounter Care Teams Route Delivery Manager Relationship Specialty Start Date End Date Socrates Kim DO [address] [place] [address] PCP - General Internal Medicine 10/10/20 documented as of this encounter
--- OUTSIDE RECORDS SUMMARY | 2024-11-21 09:36 | XMS_ITS | Encounter Summary ---
Author Organization [facility], Address [address] [place] [address] Phone Care Team Providers Care Sample Patternmaker Name Role Phone Socrates Kim DO Primary Care Provider [phone] Encounter Details Date Type Department Care Team (Late st Contact Info) Description 08/04/2023 Documentation Only [facility], [address] [place] [address] [address] Stoll [address] [place] [address] Social History Tobacco Use Types [...] on filedocumented in this encounter Care Teams Sample Patternmaker Relationship Specialty Start Date End Date Socrates Kim DO [address] [place] [address] PCP - General Internal Medicine 10/10/20 documented as of this encounter
--- OUTSIDE RECORDS SUMMARY | 2024-11-21 09:36 | XMS_ITS | Encounter Summary ---
Author Organization [facility], Address [address] [place] [address] Phone Care Team Providers Care Manufacturer'S Service Representative Name Role Phone Socrates Kim DO Primary Care Provider [phone] Encounter Details Date Type Department Care Team (Late st Contact Info) Description 06/28/2023 Documentation Only [facility], - [place] [address] [phone] Luis Kirkpatrick MD [address] [facility] [place] [phone] Social History Tobacco Use Types Packs/Day Years [...] on filedocumented in this encounter Care Teams Manufacturer'S Service Representative Relationship Specialty Start Date End Date Socrates Kim DO [address] [place] [address],[place] [address] PCP - General Internal Medicine 10/10/20 documented as of this encounter
--- OUTSIDE RECORDS SUMMARY | 2024-11-21 09:36 | XMS_ITS | Encounter Summary ---
Author Organization [facility], Address [address] [place] [address] Phone Care Team Providers Care Senior Power Plant Operator Name Role Phone Socrates Kim DO Primary Care Provider [phone] Encounter Details Date Type Department Care Team (Late st Contact Info) Description 06/25/2023 Orders Only [facility], - [place] [address] [phone] Luis Kirkpatrick MD [address] [place] [address] [place] [phone] Stage 5 chronic kidney disease (HCC) Social [...] (HCC) documented in this encounter Care Teams Senior Power Plant Operator Relationship Specialty Start Date End Date Socrates Kim DO [address] [facility],[place] [phone] PCP - General Internal Medicine 10/10/20 documented as of this encounter
--- OUTSIDE RECORDS SUMMARY | 2024-11-21 09:36 | XMS_ITS | Encounter Summary ---
Author Organization [facility], Address [address] [place] [address] Phone Care Team Providers Care Teletype Clerk Name Role Phone Julio Socrates HERNÁNDEZ Primary Care Provider [phone] Encounter Details Date Type Department Care Team (Late st Contact Info) Description 07/23/2023 Orders Only [facility], - [place] [address] [phone] Luis Kirkpatrick MD [address] [facility] [place] [phone] Stage 5 chronic kidney disease (HCC) Social [...] (HCC) documented in this encounter Care Teams Teletype Clerk Relationship Specialty Start Date End Date Socrates Kim DO 6 [facility] [place] [phone] PCP - General Internal Medicine 10/10/20 documented as of this encounter
--- OUTSIDE RECORDS SUMMARY | 2024-11-21 09:36 | XMS_ITS | Encounter Summary ---
Author Organization [facility], Address [address] [place] [address] Phone Care Team Providers Care Line Patroller Name Role Phone Socrates Kim DO Primary Care Provider [phone] Encounter Details Date Type Department Care Team (Late st Contact Info) Description 06/22/2023 Documentation Only [facility], - [place] [address] [phone] Luis Kirkpatrick MD [address] [facility] [place] [phone] Social History Tobacco Use Types Packs/Day Years [...] on filedocumented in this encounter Care Teams Line Patroller Relationship Specialty Start Date End Date Socrates Kim DO [address] [place] [address],[place] [phone] PCP - General Internal Medicine 10/10/20 documented as of this encounter
--- OUTSIDE RECORDS SUMMARY | 2024-11-21 09:36 | XMS_ITS | Encounter Summary ---
Author Organization [facility], Address [address] [place] [address] Phone Care Team Providers Care Postdoctoral Research Associate Name Role Phone Socrates Kim DO Primary Care Provider [phone] Encounter Details Date Type Department Care Team (Late st Contact Info) Description 06/30/2023 Documentation Only [facility], - [place] [address] [phone] Luis Kirkpatrick MD [address] [facility] [place] [phone] Social History Tobacco Use Types Packs/Day Years [...] on filedocumented in this encounter Care Teams Postdoctoral Research Associate Relationship Specialty Start Date End Date Socrates Kim DO [address] [place] [address],[place] [phone] PCP - General Internal Medicine 10/10/20 documented as of this encounter
--- OUTSIDE RECORDS SUMMARY | 2024-11-21 09:36 | XMS_ITS | Encounter Summary ---
Author Organization [facility], Address [address] [place] [address] Phone Care Team Providers Care Radiology Director Name Role Phone Socrates Kim DO Primary Care Provider [phone] Encounter Details Date Type Department Care Team (Late st Contact Info) Description 06/30/2023 Documentation Only [facility], - [place] [address] [phone] Luis Kirkpatrick MD [address] [facility] [place] [phone] Social History Tobacco Use Types Packs/Day Years [...] on filedocumented in this encounter Care Teams Radiology Director Relationship Specialty Start Date End Date Socrates Kim DO [address] [place] [address],[place] [phone] PCP - General Internal Medicine 10/10/20 documented as of this encounter
--- OUTSIDE RECORDS SUMMARY | 2024-11-21 09:36 | XMS_ITS | Encounter Summary ---
Author Organization [facility], Address [address] [place] [address] Phone Care Team Providers Care Cognos Lead Name Role Phone Socrates Kim DO Primary Care Provider [phone] Encounter Details Date Type Department Care Team (Late st Contact Info) Description 06/23/2023 Documentation Only [facility], - [place] [address] [phone] Luis Kirkpatrick MD [address] [facility] [place] [phone] Social History Tobacco Use Types Packs/Day Years [...] on filedocumented in this encounter Care Teams Cognos Lead Relationship Specialty Start Date End Date Socrates Kim DO [address] [place] [address],[place] [phone] PCP - General Internal Medicine 10/10/20 documented as of this encounter
--- OUTSIDE RECORDS SUMMARY | 2024-11-21 09:36 | XMS_ITS | Encounter Summary ---
Author Organization [facility], Address [address] [place] [address] Phone Care Team Providers Care Dope Worker Name Role Phone Julio Socrates HERNÁNDEZ Primary Care Provider [phone] Encounter Details Date Type Department Care Team (Late st Contact Info) Description 07/16/2023 Orders Only [facility], - [place] [address] [phone] Luis Kirkpatrick MD [address] [facility] [place] [phone] Stage 5 chronic kidney disease (HCC) Social [...] (HCC) documented in this encounter Care Teams Dope Worker Relationship Specialty Start Date End Date Socrates Kim DO 6 [facility] [phone] PCP - General Internal Medicine 10/10/20 documented as of this encounter
--- OUTSIDE RECORDS SUMMARY | 2024-11-21 09:36 | XMS_ITS | Encounter Summary ---
Author Organization [facility], Address [address] [place] [address] Phone Care Team Providers Care Transfer Coordinator Name Role Phone Socrates Kim DO Primary Care Provider [phone] Encounter Details Date Type Department Care Team (Late st Contact Info) Description 06/28/2023 Documentation Only [facility], - [place] [address] [phone] Luis Kirkpatrick MD [address] [facility] [place] [phone] Social History Tobacco Use Types Packs/Day Years [...] on filedocumented in this encounter Care Teams Transfer Coordinator Relationship Specialty Start Date End Date Socrates Kim DO [address] [place] [address],[place] [phone] PCP - General Internal Medicine 10/10/20 documented as of this encounter
--- OUTSIDE RECORDS SUMMARY | 2024-11-21 09:36 | XMS_ITS | Encounter Summary ---
Author Organization [facility], Address [address] [place] [address] Phone Care Team Providers Care Admissions Supervisor Name Role Phone Socrates Kim DO Primary Care Provider Encounter Details Date Type Department Care Team (Late st Contact Info) Description 07/09/2023 Documentation Only [facility], - [place] [address] [phone] Luis Kirkpatrick MD [address] [facility] [place] [phone] Social History Tobacco Use Types Packs/Day Years [...] filedocumented in this encounter Care Teams Admissions Supervisor Relationship Specialty Start Date End Date Socrates Kim DO [address] [place] [address],[place] [phone] PCP - General Internal Medicine 10/10/20 documented as of this encounter
--- OUTSIDE RECORDS SUMMARY | 2024-11-21 09:36 | XMS_ITS | Encounter Summary ---
Author Organization [facility], Address [address] [place] [address] Phone Care Team Providers Care Deli Associate Name Role Phone Socrates Kim DO Primary Care Provider [phone] Encounter Details Date Type Department Care Team (Late st Contact Info) Description 07/09/2023 Documentation Only [facility], - [place] [address] [phone] Luis Kirkpatrick MD [address] [facility] [place] [phone] Social History Tobacco Use Types Packs/Day Years [...] on filedocumented in this encounter Care Teams Deli Associate Relationship Specialty Start Date End Date Socrates Kim DO [address] [place] [address],[place] [phone] PCP - General Internal Medicine 10/10/20 documented as of this encounter
--- OUTSIDE RECORDS SUMMARY | 2024-11-21 09:36 | XMS_ITS | Encounter Summary ---
Author Organization [facility], Address [address] [place] [address] Phone Care Team Providers Care Plastic Card Grader Cardroom Name Role Phone Socrates Kim DO Primary Care Provider Encounter Details Date Type Department Care Team (Late st Contact Info) Description 06/22/2023 Documentation Only [facility], - [place] [address] [phone] Luis Kirkpatrick MD [address] [facility] [place] [phone] Social History Tobacco Use Types Packs/Day Years [...] on filedocumented in this encounter Care Teams Plastic Card Grader Cardroom Relationship Specialty Start Date End Date Socrates Kim DO [address] [place] [address],[place] [phone] PCP - General Internal Medicine 10/10/20 documented as of this encounter
--- OUTSIDE RECORDS SUMMARY | 2024-11-21 09:36 | XMS_ITS | Encounter Summary ---
Author Organization [facility], Address [address] [place] [address] Phone Care Team Providers Care Tank Car Mechanic Name Role Phone Socrates Kim DO Primary Care Provider [phone] Encounter Details Date Type Department Care Team (Late st Contact Info) Description 08/04/2023 Documentation Only [facility], [address] [place] [address] [address] [place] [address] Social History Tobacco Use Types [...] on filedocumented in this encounter Care Teams Tank Car Mechanic Relationship Specialty Start Date End Date Socrates Kim DO [address] [place] [address] PCP - General Internal Medicine 10/10/20 documented as of this encounter
--- OUTSIDE RECORDS SUMMARY | 2024-11-21 09:36 | XMS_ITS | Encounter Summary ---
Author Organization [facility], Address [address] [place] [address] Phone Care Team Providers Care Hand Sizer Name Role Phone Socrates Kim DO Primary Care Provider [phone] Encounter Details Date Type Department Care Team (Late st Contact Info) Description 06/30/2023 Documentation Only [facility], - [place] [address] [phone] Luis Kirkpatrick MD [address] [facility] [place] [phone] Social History Tobacco Use Types Packs/Day Years [...] on filedocumented in this encounter Care Teams Hand Sizer Relationship Specialty Start Date End Date Socrates Kim DO [address] [place] [address],[place] [phone] PCP - General Internal Medicine 10/10/20 documented as of this encounter
--- OUTSIDE RECORDS SUMMARY | 2024-11-21 09:36 | XMS_ITS | Encounter Summary ---
Author Organization [facility], Address [address] [place] [address] Phone Care Team Providers Care Web Site Designer Name Role Phone Socrates Kim DO Primary Care Provider [phone] Encounter Details Date Type Department Care Team (Late st Contact Info) Description 07/02/2023 Orders Only [facility], - [place] [address] [phone] Luis Kirkpatrick MD [address] [place] [phone] Stage 5 chronic kidney disease (HCC) Social [...] (HCC) documented in this encounter Care Teams Web Site Designer Relationship Specialty Start Date End Date Socrates Kim DO 6 [facility] [phone] PCP - General Internal Medicine 10/10/20 documented as of this encounter
--- OUTSIDE RECORDS SUMMARY | 2024-11-21 09:36 | XMS_ITS | Encounter Summary ---
Author Organization [facility], Address [address] [place] [address] Phone Care Team Providers Care Bill Checker Name Role Phone Socrates Kim DO Primary Care Provider [phone] Encounter Details Date Type Department Care Team (Late st Contact Info) Description 07/09/2023 Documentation Only [facility], - [place] [address] [phone] Luis Kirkpatrick MD [address] [facility] [place] [phone] Social History Tobacco Use Types Packs/Day Years [...] on filedocumented in this encounter Care Teams Bill Checker Relationship Specialty Start Date End Date Socrates Kim DO [address] [place] [address],[place] [phone] PCP - General Internal Medicine 10/10/20 documented as of this encounter
[2024-11-21 13:52] LABS: Alanine Aminotransferase 38 U/L (0-40); Albumin Level 4.1 g/dL (3.5-5.0); Alkaline Phosphatase 87 U/L (39-117); Anion Gap 16 (12-20); Aspartate Amino Transferase 52 U/L (5-37); Blood Urea Nitrogen 10 mg/dL (9-16); Calcium 9.7 mg/dL (8.4-10.2); Carbon Dioxide 24 mmol/L (22-29); Chloride 102 mmol/L (96-108); Cholesterol 285 mg/dL (<200); Estimated Glomerular Filt Rate > 60; Glucose Random 248 mg/dL (60-115); HDL Cholesterol 59 mg/dL (>40); LDL Cholesterol Calculated 197 mg/dL (<100); Potassium 4.2 mmol/L (3.3-5.1); Sodium 138 mmol/L (135-145); Total Protein 7.5 g/dL (6.5-8.0); Triglycerides 147 mg/dL (<150)
[2024-11-21 15:13] LABS: Estimated Average Glucose 237 mg/dL; Hemoglobin A1C 320.5936 umol/L; Hemoglobin A1c % 9.9 % (<6.0); Total Hemoglobin (HGBA1C) 3806.6357 umol/L
== END 2024-11-21 09:08 | disposition home or self-care (01) ==
LOC: HO.MANLDS 09:07
PROVIDERS: Visit Provider Physician Assistant
DX: E11.21 Type 2 diabetes mellitus with diabetic nephropathy (principal)
CPT/HCPCS: 36415; 80053; 80061; 83036

== ENCOUNTER 2025-01-09 08:31 | Outpatient (REF) | payer MEDICARE, SELFPAY ==
--- OUTSIDE RECORDS SUMMARY | 2025-01-09 08:38 | XMS_ITS | Data Portability ---
Author Organization [facility], Telehealth Patient Home Address [address] [place] [address] Assessment Encounter Date Assessment Date Assessment LastModified by Organization Details LastModified Time 04/07/2024 04/07/2024 Patient agreed and verbally consents to this audio and video Telehealth appt via a secure platform [email or web address] Not available 04/07/2024 12:00:19 05/29/2024 05/29/2024 Patient agreed and verbally consents to this audio and video Telehealth appt via a secure platform [email or web address] Not available 05/29/2024 09:52:13 Plan of Treatment Reminders Order Date Submit Date Provider Last Modified By Organization Details Last Modified Time Details Appointments FOLLOW UP 15 2024 09:15A NANO LYON Not available Not available Not available Lab CMP, serum or plasma 2024 025 [facility], [address] [place] [address], [id number], 12/13/2024 10:14:26 hemoglobi n A1c, QN, blood 2024 025 [facility], [address] [place] [address], [id number], 12/13/2024 10:14:26 Referral None recorded. Procedures None recorded. Surgeries None recorded. Imaging None recorded. Medication Orders Bactrim DS 800 mg-160 mg tablet 2023 025 [id number], [address] [place] [address], [id number], 12/13/2024 09:54:37 prednison e 20 mg tablet 2023 025 [id number], [address], [place], [phone], 12/13/2024 09:47:11 Patient TargetsNo targets recorded. Patient InstructionsNo instructions recorded. Reason for Referral None Reported. Results Created Date Observation Date Name Description Value Unit Range Abnormal Flag Note LastModifiedBy Organization Detail LastModifiedTime Result Notes None recorded. Problems Name Problem SNOMED Code Status Onset Date Resolution Date Notes Provider Name and Address Organization Details Recorded Time Burn of hand 05527250 Active 2017 Not Available [facility] 2 13:30:55 Hyperlip idemia 34131206 Active 2017 Not Available [facility] 2 13:30:56 Osteoart hritis of shoulder region 30863287 Active 2018 Not Available [facility] 2 13:30:56 Osteoart hritis of knee 541636963 Active 2018 Not Available [facility] 2 13:30:56 Dupuytre n's disease 672950415 Active 2018 Not Available [facility] 2 13:30:56 Carpal tunnel syndrome 47094241 Active 2019 Not Available [facility] 2 13:30:56 Bursitis of right shoulder 01039806595 9107 Active 2019 Not Available [facility] 2 13:30:56 COVID-19 486375115 Active 202008/06/20 Not Available [facility] 2 13:30:56 Microalb uminuric diabetic nephropa thy 036216373 Active 2020 Not Available [facility] 2 13:30:55 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 3446857689 Active 2021 Socrates Kim, [address] [place], [address], [facility] 2 15:13:45 Retinal tear 69850872 Active 2021 Socrates Kim, DO [address] [place] [address], [address], [facility] 2 15:16:46 Arthropa thy of lumbar facet joint 991439003 Active 2021 Socrates Kim, DO [address] [place] [address], [address], [facility] 2 15:19:53 Ocular ischemic syndrome 071409741 Active 2021 Socrates Kim, DO [address] [place] [address], [address], [facility] 2 10:50:11 Thoracic back pain 819215532 Active 2022 Socrates Kim DO [address] [place] [address], [address], [facility] 3 14:55:56 Raynaud' s disease 163790345 Active 2022 Socrates Kim, DO [address] [place] [address], [address], [facility] 3 10:38:21 Cellulit is of left upper limb 08456511254 225760 Active 2022 NANO AG [address] [place] [address], [address], [facility] 3 14:34:23 Vertigo 911012563 Active 2022 Socrates Kim DO [address] [place] [address], [address], [facility] 3 23:14:54 Dizzines s 856364258 Active 2022 Socrates Kim DO [address] [place] [address], [address], [facility] 3 23:15:56 Loss of appetite 06264578 Active 2022 NANO AG [address] [place], [address], [facility] 3 09:57:31 Taste sense altered 993942256 Active 2022 NANO AG [address] [place], [address], [facility] 3 10:00:35 Burping 404186269 Active 2022 NANO AG [address] [place], [address], [facility] 3 10:02:16 Prostate specific antigen above referenc e range 179266755 Active 2022 NANO AG [address] [place] [address], [address], [facility] 3 15:03:02 Cholelit hiasis without obstruct ion 66747407 Active 2022 NANO AG [address] [place] [address], [address], [facility] 3 15:07:13 Impaired fasting glycemia 037960871 Active 2022 NANO AG [address] [place] [address], [address], [facility] 3 09:33:30 Abdomina l pain 55381756 Active 2022 NANO AG [address] [place] [address], [address], [facility] 3 09:06:39 Liver enzymes level above referenc e range 595235356 Active 2022 NANO AG [address] [place] [address], [address], [facility] 3 09:07:06 Hyperpar athyroid ism 43480115 Active 2022 NANO AG [address] [place] [address], [address], [facility] 3 14:48:50 Disorder of vertebra 856475712 Active 2023 Socrates Kim DO [address] [place], [address], [facility] 4 11:22:25 Pain of right shoulder joint 80365020894 719819 Active 2023 NANO AG [address] [place], [address], [facility] 4 10:01:06 Contract ure of joint of finger 745573413 Active 2023 NANO AG [address] [place], [address], [facility] 4 10:03:39 Contract ure of joint of finger 497770055 Active 2023 NANO AG [address] [place], [address], [facility] 4 10:04:23 Pain of left breast 5558430808 Active 2023 NANO AG [address] [place] [address], [address], [facility] 4 12:22:13 Pain in testicle 68436533 Active 2023 NANO AG [address] [place] [address], [address], [facility] 4 12:00:56 Acute sinusiti s 17120802 Active 2024 NANO AG [address] [place] [address], [address], [facility] 5 09:14:33 Essentia l hyperten lias 58111792 Active 2024 NANO AG [address] [place], [address], [facility] 5 11:01:14 Chronic kidney disease stage 2 921207955 Active 2024 NANO AG [address] [place], [address], [facility] 5 11:02:38 Hypergly cemia due to type 2 diabetes mellitus 61928167288 9109 Active 2024 NANO AG [address] [place], [address], [facility] 5 10:00:49 Type 2 diabetes mellitus 99869688 Active 2017 Not Available [facility] 2 13:30:56 History of hyperten lisa 459629780 Active 2017 Not Available [facility] 2 13:30:55 Disorder of rotator cuff 839094701 Active 2017 tendoniti s S43.42 Not Available [facility] 2 13:30:55 Disorder of lumbar disc 854920355 Active 2017 Surgery 1980 Not Available [facility] 2 13:30:55 Notes:Some problems listed i n Documents: #[id number], #[id number] could not be added to this patient's chart. Please review these documents and add these problems to the patient's chart manually as needed. Problem Notes None recorded. Procedures Surgical History Date Name Laterality Status Provider Name and Address Organization Details Recorded Time 020 Corticosteroid Injection completed Socrates Kim DO [address] [place] [address], [address], [facility] 01/08/2020 13:55:35 Imaging Results None recorded. Procedure Notes None recorded. Medical Equipment None Reported. Allergies No known drug allergies Medications Name Sig Start Date Stop Date Status Note LastModified by Organization Details LastModified Time cyclobenzap rine 10 mg tablet TAKE 1 TABLET BY MOUTH THREE TIMES DAILY FOR 14 DAYS 10/16 completed Not Available Not Available Not Available amoxicillin 500 mg capsule Take 1 capsule every 8 hours by oral route for 7 days. 09/01 completed Not Available Not Available Not Available pioglitazon e 15 mg tablet TK 1 T PO QD 10/16 completed Not Available Not Available Not Available azithromyci n 250 mg tablet TAKE 2 TABLETS (500 MG) BY ORAL ROUTE ONCE DAILY FOR 1 DAY THEN 1 TABLET (250 MG) BY ORAL ROUTE ONCE DAILY FOR 4 DAYS 09/01 completed Not Available Not Available Not Available prednisone 20 mg tablet TAKE 1 TABLET BY MOUTH EVERY DAY FOR 7 DAYS 12/13 completed Not Available Not Available Not Available Accu-Chek Softclix Lancets USE TO TEST BLOOD SUGAR THREE TIMES DAILY DIRECTED active Not Available Not Available No t Available meclizine 12.5 mg tablet Take 2 tablets 3 times a day by oral route as needed for 90 days. 10/19 completed Not Available Not Available Not Available sulfamethox azole 800 mg-trimetho prim 160 mg tablet TAKE 1 TABLET BY MOUTH EVERY 12 HOURS FOR 10 DAYS 12/13 completed Not Available Not Available Not Available tramadol 50 mg tablet Take 2 tablets every 6 hours by oral route as needed for 10 days. 02/10 completed Not Available Not Available Not Available tamsulosin 0.4 mg capsule TAKE 1 CAPSULE AT BEDTIME active Not Available Not Available No t Available meclizine 25 mg tablet Take 1 tablet 3 times a day by oral route as needed for 90 days. 06/16 completed Not Available Not Available Not Available cephalexin 500 mg capsule TAKE 1 CAPSULE BY MOUTH EVERY 6 HOURS FOR 10 DAYS 02/03 completed Not Available Not Available Not Available metformin 1,000 mg tablet 1 po bid 06/11 completed Not Available Not Available Not Available diclofenac sodium 75 mg tablet,wyatt yed release TAKE 1 TABLET BY MOUTH 2 TIMES A DAY 04/05 completed Not Available Not Available Not Available bisacodyl 5 mg tablet,wyatt yed release TAKE 4 TABLETS BY MOUTH ONE DOSE 11/18 completed Not Available Not Available Not Available lisinopril 5 mg tablet 1 po qd 06/11 completed Not Available Not Available Not Available metoprolol succinate ER 25 mg tablet,exte nded release 24 hr TAKE 1 TABLET BY MOUTH ONCE A DAY DIRECTED 11/22 completed Not Available Not Available Not Available finasteride 5 mg tablet TAKE 1 TABLET BY MOUTH DAILY active Not Available Not Available No t Available amoxicillin 875 mg-potassiu m clavulanate 125 mg tablet TAKE 1 TABLET BY MOUTH EVERY 12 HOURS WITH MEALS FOR 10 DAYS 10/19 completed Not Available Not Available Not Available oxycodone 5 mg tablet TAKE 1 TABLET BY MOUTH EVERY 6 HOURS IF NEEDED FOR MODERATE PAIN 10/02 completed Not Available Not Available Not Available Pneumovax-2 3 25 mcg/0.5 mL injection syringe ADM 0.5ML IM UTD 10/02 completed Not Available Not Available Not Available ezetimibe 10 mg tablet TAKE 1 TABLET DAILY active Not Available Not Available No t Available rosuvastati n 40 mg tablet 1 po qd 06/11 completed Not Available Not Available Not Available Gas Relief Extra Strength 125 mg chewable tablet CHEW 3 TABLETS BY MOUTH 1 DOSE 11/18 completed Not Available Not Available Not Available Lantus Solostar U-100 Insulin 100 unit/mL (3 mL) subcutaneou s pen INJECT 20 UNITS SUBCUTANE OUSLY DAILY active Not Available Not Available No t Available GaviLyte-G 236 gram-22.74 gram-6.74 gram-5.86 gram oral solution MIX AND DRINK DIRECTED 10/19 completed Not Available Not Available Not Available Invokana 300 mg tablet TAKE 1 TABLET BY MOUTH EVERY DAY 11/22 completed Not Available Not Available Not Available Droplet Pen Needle 32 gauge x USE DIRECTED active Not Available Not Available No t Available Basaglar KwikPen U-100 Insulin 10 units sq daily 12/13 completed Not Available Not Available Not Available Accu-Chek Guide test strips USE TO CHECK BLOOD SUGAR THREE TIMES DAILY active Not Available Not Available No t Available Shingrix (PF) 50 mcg/0.5 mL intramuscul ar suspension, kit 05/02 completed Not Available Not Available Not Available Accu-Chek Guide Me Glucose Meter USE DIRECTED TO CHECK BLOOD SUGAR THREE TIMES DAILY active Not Available Not Available No t Available Afluria Qd (36 mos up)(PF)60 mcg (15 mcg x4)/0.5 mL IM syringe ADM 0.5ML IM UTD 10/02 completed Not Available Not Available Not Available Vitals Date Recorded Body height Body mass index (BMI) Body weight Heart rate Oxygen saturation Oxygen saturation in Arterial blood by Pulse oximetry Systolic blood pressure Diastolic blood pressure Provider Name and Address Organization Details Last Updated DateTime 5 175.9 cm 29.1 kg/m2 86186.0 1 g 90 /min 95 % 95 % 158 mm[Hg] 92 mm[Hg] Cassi Reyes [facility] 5 10:34:09 Date Recorded Body height Body mass index (BMI) Body weight Oxygen saturation Oxygen saturation in Arterial blood by Pulse oximetry Heart rate Systolic blood pressure Diastolic blood pressure Provider Name and Address Organization Details Last Updated DateTime 5 175.9 cm 28.6 kg/m2 49886.5 1 g 98 % 98 % 64 /min 128 mm[Hg] 82 mm[Hg] Winnie Layton [facility] 5 09:48:52 Date Recorded Body height Body mass index (BMI) Body weight Heart rate Oxygen saturation Oxygen saturation in Arterial blood by Pulse oximetry Systolic blood pressure Diastolic blood pressure Provider Name and Address Organization Details Last Updated DateTime 4 175.9 cm 28.3 kg/m2 22409.3 3 g 80 /min 97 % 97 % 132 mm[Hg] 80 mm[Hg] Cassi Reyes [facility] 4 10:00:44 Social History Question Answer Notes LastModified by Organizat ion Details LastModified Time Tobacco Smoking Status Current Some Day Smoker occ. cigar Not Available [facility] 05/14/2020 03:36:24 What Was The Date Of Your Most Recent Tobacco Screening? 02/28/2024 [email or web address] Information not available 02/28/2024 How Much Tobacco Do You Smoke? No Information not available 10/21/2021 Sex: Unknown Functional Status Question Answer Note LastModified by Organization D etails LastModified Time Do you or have you ever used any other forms of tobacco or nicotine? No Information not available 10/21/2021 Mental Status None recorded. Family History Nothing Reported. Medical History No medical history recorded. Immunizations Vaccine Type Date Status Note Provider Nam e and Address Organization Details Recorded Time COVID-19, mRNA, LNP-S, PF, 30 mcg/0.3 mL dose 2 completed Brenda kasper [facility] 07/25/2021 08:40:10 Influenza, split virus, quadrivalent, preservative 1 completed Neda kasper [facility] 10/21/2021 10:40:54 zoster live 8 [facility] Neda kasper [facility] 08/15/2018 13:59:37 zoster live 8 [facility] Neda kasper [facility] 08/15/2018 14:07:00 Td(adult) unspecified formulation 2 completed Neda kasper [facility] 08/15/2018 14:53:49 Influenza, split virus, quadrivalent, preservative 0 completed Neda Mallory [facility] 04/09/2020 14:08:59 pneumococcal polysaccharide PPV23 0 [facility] Neda Mallory [facility] 04/09/2020 14:09:10 COVID-19, mRNA, LNP-S, PF, 30 mcg/0.3 mL dose [facility] 14:10:45 Past Encounters Encounter ID Performer Location Encounter Start Date Encounter Closed Date Diagnosis/Indication Diagnosis SNOMED-CT Code Diagnosis ICD10 Code Diagnosis Note [id number] Socrates Kim [facility] [address] [place] [address],[place] [address] 11/24/2017 10:20:37 11/24/2017 13:58:55 Lumbago with sciatica 009665994 M54.42 will plan on getting xray [facility] needs PT as well tramadol for at home use [id number] Socrates Kim [facility] [address] [facility],[place] [address] 12/13/2017 16:04:04 12/13/2017 16:59:39 Arthropathy of lumbar facet joint 964531838 M48.8X6 [id number] Socrates Kim [facility] [address] [facility],[place] [address] 05/02/2018 14:50:28 05/02/2018 15:51:18 History of hypertension 615717191 Z86.79 bps are stable no changes Type 2 pb betes mellitus 13853260 E11.9 aic is 6.5 and cont to do well no issues cont metform and invokan Burn of hand 31011464 T2 3.002D cont silvadene dressings while open wound Hyperlipidemia 66095061 E78.5 doing great with LDL of 86 [id number] Socrates Kim [facility] [address] [facility], [place] [address] 06/06/2018 11:06:11 06/06/2018 16:22:30 Avulsion of skin 871575586 T14.8XXD Pt. initially seen [place] urgent care and [place] [id number] Socrates Kim [facility] [address], [place] [address] 08/15/2018 13:53:16 08/15/2018 14:46:50 History of hypertension 423771577 Z86.79 bps are stable no changes Type 2 pb betes mellitus 40154682 E11.9 aic is 6.9 and cont to do well but a little higher than last cont metform and invokan Osteoarthr itis of shoulder region 13222968 M19.019 Numbness of hand 0146769 04 R20.0 both hand and arms are affected left greater than right will ask for bilateral NCT [id number] Socrates Kim [facility] [address] [facility], [place] [address] 09/19/2018 09:43:29 09/19/2018 10:17:57 Infection of sebaceous cyst 734334775 L72.3 I & D with moderate amts brownish odiferous pus [id number] Socrates Kim [facility] [address] [facility], [place] [address] 10/04/2018 14:25:01 10/04/2018 15:33:34 Bilateral carpal tunnel syndrome 1925242360 5637278 G56.03 will refer to surgeon History of hypertension 287948715 Z86.79 bps are stable no changes Type 2 pb betes mellitus 33380102 E11.9 aic is 6.9 and cont to do well but a little higher than last cont metform and invokan [id number] Socrates Kim, [facility] [address] [facility], [place] [address] 02/10/2019 14:45:23 02/10/2019 15:33:15 Type 2 diabetes mellitus 36684706 E11.9 aic is 7.2 from 6.9 and cont to do well but a higher than last time due to diet (ice cream) cont metform and invokan strong discuss re diet and need for compliance Hyperlipidemia 48772883 E78.5 doing great prior LDL of 86 last time and now is 59 with HDL of 62 History of hypertension 450006080 Z86.79 bps are stable no changes Dupuytren's disease [address] serna [id number] Socrates Kim [facility] [address] [facility], [place] [address] 06/20/2019 13:39:48 06/20/2019 14:30:44 Type 2 diabetes mellitus 80492835 E11.9 aic is 6.3 from 6.9 and cont to do well cont metform and invokan strong discuss re diet and exercise need for compliance Increased alb/creat ration - will recheck in 3 mo with good compliance to diet, already on lisinopril History of hypertension 488906274 Z86.79 bps are stable no changes Osteoarthr itis of shoulder region 43974949 M19.019 Waiting on group home for surgery Hyperlipidemia 05244762 E78.5 Doing great with current statin dose LDL was 58 [id number] Socrates Kim [facility] [address] [facility],[place] [address] 09/20/2019 13:18:27 09/20/2019 13:57:08 History of hypertension 336838718 Z86.79 bps are stable no changes Type 2 pb betes mellitus 84218726 E11.9 aic is 6.5 from 6.3 and was 6.9 cont to do well note microalbum in is borderline so we shall cont to monitor cont metform and invokana strong discuss re diet and exercise need for compliance Increased alb/creat ration - will recheck in 3 mo with good compliance to diet, already on lisinopril Burn of hand 91130933 T2 3.002D did well no skin contractur es Bursitis o f right shoulder 9811470079 15597 M75.51 will need to have his cortisone done again will refer Carpal micaela yolie syndrome 99983593 G56.02 will need referral for anothe visit with dr Serna Hyperlipidemia 63383209 E78.5 Doing great with current statin dose LDL was 44 [id number] Socrates Kim DO [facility] [address] [facility],[place] [address] 01/08/2020 13:23:36 01/08/2020 14:07:35 Type 2 diabetes mellitus 32707526 E11.9 Still pending A1C - taken this AM aic is 6.5 from 6.3 and was 6.9 cont to do well note microalbum in is borderline so we shall cont to monitor cont metform and invokana strong discuss re diet and exercise need for compliance Increased alb/creat ration - will recheck in 3 mo with good compliance to diet, already on lisinopril History of hypertension 204620346 Z86.79 bps are stable no changes Osteoarthr itis of shoulder region 53415852 M19.019 Waiting on group home for surgery Given chaya inject today without complicati on Carpal micaela yolie syndrome 01187035 G56.02 Seeing Kareem 7/2 Disorder o f lumbar disc 260731074 M51.9 Not currently having any discomfort Will d/c diclofenac and only take PRN if pain [id number] Socrates Kim DO [facility] [address] [facility],[place] [address] 04/05/2020 09:20:52 04/05/2020 10:07:06 Type 2 diabetes mellitus 72277800 E11.9 Still pending A1C - taken this AM aic was 6,7 from december 6.5 from 6.3 and was 6.9 cont to do well note microalbum in is borderline so we shall cont to monitor needs microalbum in cont metform and invokana but the invokana is now longer covered we will have to switch to pioglitazo ne 15mg mar discuss re diet and exercise need for compliance Increased alb/creat ration - will recheck in 3 mo with good compliance to diet, already on lisinopril Carpal micaela yolie syndrome 51804009 G56.02 Seeing Pianta 01/10 [id number] Socrates Kim [facility] [address] [facility],[place] [address] 10/02/2020 11:42:36 10/02/2020 14:30:38 Type 2 diabetes mellitus 56027394 E11.9 Still pending A1C - taken this AM aic was 6,7 from december 6.5 from 6.3 and was 6.9 cont to do well note microalbum in is borderline so we shall cont to monitor needs microalbum in cont metform and invokana but the invokana is now longer covered we will have to switch to pioglitazo ne 15mg strong discuss re diet and exercise need for compliance Increased alb/creat ration - will recheck in 3 mo with good compliance to diet, already on lisinopril History of hypertension 252463501 Z86.79 bps are stable but we will need to rechk in the next month no changes in his meds now COVID-19 532436697 U07.1 has now resolved has gotten his smell back no sob no cough [id number] Socrates Kim, [facility] [address] [facility],[place] [address] 11/08/2020 10:18:23 11/08/2020 11:20:59 History of hypertension 332791451 Z86.79 bps are stable but we will need to rechk in the next month no changes in his meds now Dizziness 373885801 R42 has had since the covid 19 infection relates that this has persisted and is not abating Diarrhea 28915129 R19.7 same scenario as above began with covid 19 infect discussed need to hold off on dairy and will add low dose fiber caps Type 2 pb betes mellitus 67443675 E11.9 Still pending A1C - is 6.5 now PRIOR aic was 6,7 from december 6.5 from 6.3 and was 6.9 cont to do well note microalbum in is borderline so we shall cont to monitor needs microalbum in cont metform and invokana but the invokana is now longer covered we will have to switch to pioglitazo ne 15mg strong discuss re diet and exercise need for compliance Increased alb/creat ration - will recheck in 3 mo with good compliance to diet, already on lisinopril Microalbum inuric diabetic nephropathy 742722983 E11.21 [place] [id number] Socrates Kim [facility] [address] [facility],[place] [address] 11/22/2020 11:52:06 11/22/2020 14:54:24 History of hypertension 361686110 Z86.79 bps are stable and excellent we will stop the metoprolol COVID-19 [id number] U07.1 has now resolved has gotten his smell back no sob no cough Type 2 pb betes mellitus 29681929 E11.9 Still pending A1C - is 6.5 now PRIOR aic was 6,7 from joan 6.5 from 6.3 and was 6.9 cont to do well note microalbum in is borderline so we shall cont to monitor needs microalbum in cont metform and invokana but the invokana is now longer covered we will have to switch to pioglitazo ne 15mg strong discuss re diet and exercise need for compliance Increased alb/creat ration - will recheck in 3 mo with good compliance to diet, already on lisinopril Microalbum inuric diabetic nephropathy [id number] E11.21 will be seeing nephrologi st in 2 weeks [id number] Socrates Kim [facility] [address] [facility],[place] [address] 04/02/2021 08:30:59 04/02/2021 11:48:00 Arthropathy of lumbar facet joint 860886298 M48.8X6 same no change History of hypertension 788728203 Z86.79 bps are stable and excellent we will stop the metoprolol Microalbum inuric diabetic nephropathy 087475464 E11.21 doing great and lab and urine all good US also nl Type 2 pb betes mellitus 64759436 E11.9 Still pending A1C 7.7 and is now elevated try to increase metformin to BID - is 6.5 now PRIOR aic was 6,7 from december 6.5 from 6.3 and was 6.9 cont to do well note microalbum in is borderline so we shall cont to monitor needs microalbum in cont metform and invokana but the invokana is now longer covered we will have to switch to pioglitazo ne 15mg strong discuss re diet and exercise need for compliance Increased alb/creat ration - will recheck in 3 mo with good compliance to diet, already on lisinopril 62078 Socrates Kim [facility] [address] [facility],[place] [address] [facility] [place] [address] 10/21/2021 14:24:29 10/22/2021 08:28:10 Type 2 diabetes mellitus 62892177 E11.9 last a1c is 5.7 now but this is because of his inability to eat well prior to this was A1C 7.7 ow PRIOR aic was 6,7 from december 6.5 from 6.3 and was 6.9 cont to do well note microalbum in is borderline so we shall cont to monitor needs microalbum in cont metform and invokana but the invokana is now longer covered we will have to switch to pioglitazo ne 15mg strong discuss re diet and exercise need for compliance Increased alb/creat ration - will recheck in 3 mo with good compliance to diet, already on lisinopril Chronic po st-COVID-19 syndrome [id number] Z86.16 fatigue smell rotten meat dizzy and the strange vision changes of severe brightness (can last up to 20 min) Retinal tear 83722338 H3 3.309 unsure what this is worst case scenario could it be poss retinal tear?? 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 doing great and lab and urine all good US also nl Arthropath y of lumbar facet joint 134674104 M48.8X6 same no change [id number] Socrates Kim [facility] [address] [facility],[place] [address] 11/28/2021 10:00:38 11/28/2021 12:37:31 Type 2 diabetes mellitus 23338834 E11.9 last a1c is 5.7 now but this is because of his inability to eat well prior to this was A1C 7.7 ow PRIOR aic was 6,7 from december 6.5 from 6.3 and was 6.9 cont to do well note microalbum in is borderline so we shall cont to monitor needs microalbum in cont metform and invokana but the invokana is now longer covered we will have to switch to pioglitazo ne 15mg strong discuss re diet and exercise need for compliance Increased alb/creat ration - will recheck in 3 mo with good compliance to diet, already on lisinopril Active or passive immunization 122846520 Z23 patient advised of vaccines he is due for, will consider Screening for malignant neoplasm of colon 066799942 Z12.11 here and will have this done Hepatitis C screening 41 0189819 Z11.59 will k next visit 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 still having issues and may have had a reaction 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 01698 Socrates Kim DO [facility] [address],[place] [address] 07/17/2022 14:29:39 07/17/2022 15:04:52 Active or passive immunization 790883699 Z23 patient advised he is due for flu shot, tdap, pneu 13 & shingles Adult heal th examination 913472329 Z00.00 he is doing well and not having any issues Screening for malignant neoplasm of colon 137009414 Z12.11 here and will have this done Abdominal aortic aneurysm screening 725028690 Z13.6 given history of risk factors he is a candidate for this test Hepatitis C screening 41 3133780 Z11.59 will k next visit Type 2 pb betes mellitus 69614993 E11.9 last a1c isnow up to 6.9 from his wgt gain now that he can smell and taste 5.7 now but this is because of his inability to eat well prior to this was A1C 7.7 ow PRIOR aic was 6,7 from december 6.5 from 6.3 and was 6.9 cont to do well note microalbum in is borderline so we shall cont to monitor needs microalbum in cont metform and invokana but the invokana is now longer covered we will have to switch to pioglitazo ne 15mg strong discuss re diet and exercise need for compliance Increased alb/creat ration - will recheck in 3 mo with good compliance to diet, already on lisinopril Microalbum inuric diabetic nephropathy 905948878 E11.21 doing great and lab and urine all good US also nl Arthropath y of lumbar facet joint 777246177 M48.8X6 same no change Acute sinusitis 65300063 J01.90 Thoracic back pain 14019 8004 M54.6 38126 Socrates Kim [facility] [address] [facility] [address],[place] [employer] [facility] [place] [address] 10/16/2022 10:10:44 10/16/2022 10:44:33 Microalbuminuric diabetic nephropathy 310095518 E11.21 doing great and lab and urine all good US also nl Type 2 pb betes mellitus 57702269 E11.9 last a1c isnow up to 6.9 from his wgt gain now that he can smell and taste 5.7 now but this is because of his inability to eat well prior to this was A1C 7.7 ow PRIOR aic was 6,7 from december 6.5 from 6.3 and was 6.9 cont to do well note microalbum in is borderline so we shall cont to monitor needs microalbum in cont metform and invokana but the invokana is now longer covered we will have to switch to pioglitazo ne 15mg strong discuss re diet and exercise need for compliance Increased alb/creat ration - will recheck in 3 mo with good compliance to diet, already on lisinopril Raynaud's disease 037392 006 I73.00 stable and not a big issue s History of hypertension 017044911 Z86.79 bps are stable and excellent we will stop the metoprolol Hyperlipidemia 97742858 E78.5 Doing great with current statin dose LDL was 44 [id number] Socrates Kim [facility] [address] [facility] [address],[place] [address] 01/13/2023 14:14:47 01/13/2023 16:29:40 Cellulitis of left upper limb 7106043934 5187890 L03.114 will start on antibiotic sneeds TDAP 69955 Socrates Zamora Julio, [facility] [address] [facility] [address],[place] [address] 02/03/2023 10:27:52 02/03/2023 13:34:34 Cellulitis of left upper limb 9755249047 6097404 L03.114 resolved History of hypertension 066487122 Z86.79 bps are stable and excellent we will stop the metoprolol Raynaud's disease 439826 006 I73.00 stable and not a big issue s Type 2 pb betes mellitus 93957644 E11.9 a1c is down to 6.3 doing great no issue PRIOR last a1c isnow up to 6.9 from his wgt gain now that he can smell and taste 5.7 now but this is because of his inability to eat well prior to this was A1C 7.7 ow PRIOR aic was 6,7 from december 6.5 from 6.3 and was 6.9 cont to do well note microalbum in is borderline so we shall cont to monitor needs microalbum in cont metform and invokana but the invokana is now longer covered we will have to switch to pioglitazo ne 15mg strong discuss re diet and exercise need for compliance Increased alb/creat ration - will recheck in 3 mo with good compliance to diet, already on lisinopril 41256 Socrates ValdezJulee Kim [facility] [address] [facility] [address],[place] [address] 05/05/2023 09:44:21 05/05/2023 13:34:14 Hyperlipidemia 03199171 E78.5 Doing great with current statin dose LDL was 44 Type 2 pb betes mellitus 92368745 E11.9 he has not been able to gethis a1c last time was good at 6.3 PRIOR last a1c isnow up to 6.9 from his wgt gain now that he can smell and taste 5.7 now but this is because of his inability to eat well prior to this was A1C 7.7 ow PRIOR aic was 6,7 from december 6.5 from 6.3 and was 6.9 cont to do well note microalbum in is borderline so we shall cont to monitor needs microalbum in cont metform and invokana but the invokana is now longer covered we will have to switch to pioglitazo ne 15mg strong discuss re diet and exercise need for compliance Increased alb/creat ration - will recheck in 3 mo with good compliance to diet, already on lisinopril History of hypertension 206790480 Z86.79 bps are stable and excellent we will stop the metoprolol Microalbum inuric diabetic nephropathy 456976206 E11.21 doing great and lab [place] [address] Socrates Kim [facility] [address] [facility],[place] [address] 05/26/2023 09:37:24 05/28/2023 14:34:52 Loss of appetite 29413636 R63.0 will set up with additional lab work and determine trigger of the gastro changes Taste sense altered 2718 73497 R43.2 will set up with additional lab work Burping 904488203 R14.2 will set up with additional lab work [id number] Socrates Kim [facility] [address] [facility] [address] 06/16/2023 09:24:23 06/16/2023 10:41:20 Cholelithiasis without obstruction 50381566 K80.20 will set up with gen surg Acute kidney injury 1466 9001 N17.8 doing much Liver enzy mes level above reference range 410052521 R74.01 will have him evaluated by general surgery Loss of appetite 7647298 6 R63.0 resolved Abdominal pain 78612353 R10.0 improved Dizziness 058568979 R42 will initiate meclizine Type 2 pb betes mellitus 43694235 E11.9 will set up with lantus instead since he cannot use metformin 144034 Socrates Kim [facility] [address] [facility], [place] [address] 06/23/2023 09:50:26 06/23/2023 10:20:24 Screening for malignant neoplasm of colon 872681616 Z12.11 will set up with colonoscop yoverdue for it Acute kidney injury 1466 9001 N17.8 doing much betterup to 48 from 10 Cholelithi asis without obstruction 70735067 K80.20 has general surgery [id number] Socrates Kim [facility] [address] [facility], [place] [address] 07/19/2023 08:24:30 07/19/2023 11:35:26 Type 2 diabetes mellitus 23073321 E11.21 a1c is 7.3 as he is finally eating again is on lantus 2 unitswe will increase to 4 units Disorder of vertebra 430 225014 M48.8X6 doing ok the more active he is Acute kidney injury 1466 9001 N17.8 completely resolved!! !!!! creat is down to 1.1followe d by nephro [id number] Socrates Kim [facility] [address] [facility], [place] [address] 10/20/2023 09:43:33 10/20/2023 10:58:15 Cellulitis of left upper limb 9274239411 2969699 L03.114 stable Type 2 pb betes mellitus 36220777 E11.21 waiting on his bw to drop in Pain of ri ght shoulder joint 8002105437 6983510 M25.511 will Contractur e of joint of finger 729081411 M24.542 will send note to Dr. Serna [id number] Socrates Kim [facility] [address] [facility], [place] [address] 11/19/2023 11:28:50 11/22/2023 09:06:01 Depression screening 254396982 Z13.31 Pain of left breast 1010 019577 N64.4 agreed to imaging of the breast tissue given symptoms and tissue changescou ld be gynecomast ia due to the finasterid e? [id number] Socrates Kim [facility] [address] [facility], [place] [address] 02/28/2024 09:45:23 02/28/2024 10:27:53 Impaired fasting glycemia 664381094 R73.01 waiting on BW Type 2 pb betes mellitus 06817979 E11.21 waiting on his bw to drop in Hyperparathyroidism 6699 9008 E21.0 waiting on BW [id number] Socrates Kim [facility] [address] [facility] [address], [place] [address] 04/07/2024 09:19:24 04/07/2024 12:18:38 Pain in testicle 32425749 N50.811 will set up with bactrim for abxprednis one for the swelling [id number] Socrates Kim [facility] [address] [facility] [address], ite [facility] [place] [address] 05/29/2024 08:49:49 05/29/2024 10:46:34 Type 2 diabetes mellitus 82407321 E11.21 waiting on his bw to drop in Pain in testicle 7290013 9 N50.811 resolved History of hypertension 888203786 Z86.79 stable [id number] Socrates Kim [facility] [address] [facility] [address], [place] [address] 09/01/2024 09:54:03 09/01/2024 11:07:08 Essential hypertension 53504074 I10 stable Type 2 pb betes mellitus 63599802 E11.21 stable, dropping down Chronic ki dney disease stage 2 693032754 N18.2 resolved GFR 82 which is excellent [id number] Socrates Kim [facility] [address] [facility] [address], [place] [address] 12/13/2024 09:38:55 12/13/2024 14:13:13 Hyperglycemia due to type 2 diabetes mellitus 2164436304 45673 E11.65 Z79.4 went back up to 9.9%curren tly on 16 units of lantusreco mmended going up to 20 units Health Concerns Section Related Observation LastModified by Organization Detai ls LastModified Time None Recorded Concern Status LastModified by Organization Details LastModified Time None Recorded Advance Directives Directive None Recorded Payers Insurance Date Sequence Insurance Name Policy Number Policy Boucher Covered Member ID Boucher Member ID Guarantor Name 08/29/2024 1 [facility] [id number] Nohemy Jack [id number] Jorge A Blevins Peloquin 01/09/2025 1 [place]MEDICARE [place]ACEMENT HMO) [id number] Jorge A Jack [id number] Jorge A Osbornostephanie 08/29/2024 1 [place] [employer] Jorge A Osbornostephanie [id number] Jorge A Jack Notes Date Note Type Note Provider Name a nd Address Organization Details Recorded Time 02/28/2024 text/html 3 mo f/u T2DM: waiting on his bloodworkthe patient reports that he got his bw this morning, do not have results back hyperparathyroidism : stableno new symptoms OA: stable [facility] [address] [place], [address], [facility] 02/28/2024 10:24:34 04/07/2024 text/html c/o testicular The patient is participating in this appointment via telemedicine communication with a phone call/video calling service (Doxy)The patient consents to use of these platforms in place of an in-person appointment due to either sick symptoms the patient is presenting with or current office closure due to COVID exposure in order to keep our office staff and patients safe the patient reports he developed pain and testicular swelling for about a weekhas progressively gottenno discharge, no skin changes, no palpable mass in the testicle has had this beforewas diagnosed with epididymitis before with the same symptoms beforewill start him on something and submit US [facility] [address] [place], [address], [facility] 04/07/2024 12:07:37 05/29/2024 text/html 3 mos f/u The patient is participating in this appointment via telemedicine communication with a phone call/video calling service (Doxy)The patient consents to use of these platforms in place of an in-person appointment due to either sick symptoms the patient is presenting with or current office closure due to COVID exposure in order to keep our office staff and patients safe T2DM: stable per patient no issues, waiting on his lab work results to come in got them on Wednesday pain in testicle: resolved after abx and pred taper (sept) acute sinus infection: resolved with abx (oct) otherwise doing well [facility] [address] [place], [address], [facility] 05/29/2024 10:00:23 09/01/2024 text/html 3 mos the patient is doing wellrecent BW was wnl, no major changes and kidney function has stayed stable Patient presents today for follow-up for Type 2 Diabetes Recent lab showed an A1c of 8.6% which is down from the 9% The patient has been compliant with medications, the patient is up to 10 units of lantus QD at bedtime from the original 4 unitsThe complications patient is experiencing are adjusting his insulin for better control of his sugaris using it as directed; normal appetite and sleeping alright, is waking up at 4 am everyday, averaging 6 amThe patient has current concerns about related to their diabetes diagnosisThe patient has been compliant with lifestyle changes including dietary changes, exercise and healthy habits Discussion about feet reveals normal examDiscussion about eyes reveal normal exam Treatment plan going forward is continue on insulin [facility] [address] [place], [address], [facility] 09/01/2024 11:06:47 12/13/2024 text/html 3 mo f/u Patient presents today for follow-up for Type 2 Diabetes Recent lab showed an A1c of 9.9% the patient denies any major changes to his diet, no activity changethe patient denies any new stress in his life, denies recent illness, denies sleeping changing The patient has been compliant with medications, no changes, doing much betterThe complications patient is experiencing are none, didn't know his glucose was going up, hasn't noticed a changeThe patient has current concerns about related to their diabetes diagnosisThe patient has been compliant with lifestyle changes including dietary changes, exercise and healthy habits Discussion about feet reveals normal examDiscussion about eyes reveals normal exam per pt from last eye check Treatment plan going forward is increasing the lantus, the patient reports that he is currently using 16 units, recommended going up to 20 units patient agreeshis insurance doesn't pay well for the GLP-1's [facility] [address] [place], [address], [facility] 12/13/2024 10:10:09
--- OUTSIDE RECORDS SUMMARY | 2025-01-09 08:38 | XMS_ITS | Encounter Summary ---
Author Organization [facility], Address [address] [place] [address] Phone Care Team Providers Care Marketing Research Coordinator Name Role Phone Socrates Kim DO Primary Care Provider [phone] Encounter Details Date Type Department Care Team (Late st Contact Info) Description 06/10/2023 Documentation Only [facility], - [address] [address] [phone] Luis Kirkpatrick MD [address] [facility] [place] [phone] Social History Tobacco Use Types Packs/Day Years [...] filedocumented in this encounter Care Teams Marketing Research Coordinator Relationship Specialty Start Date End Date Socrates Kim DO [address] [place] [address],[place] [phone] PCP - General Internal Medicine 10/10/20 documented as of this encounter
[2025-01-09 14:14] LABS: Hemoglobin A1C 332.5390 umol/L; Total Hemoglobin (HGBA1C) 3931.7468 umol/L
[2025-01-09 14:44] LABS: Alanine Aminotransferase 51 U/L (0-40); Albumin Level 4.3 g/dL (3.5-5.0); Alkaline Phosphatase 107 U/L (39-117); Anion Gap 15 (12-20); Aspartate Amino Transferase 63 U/L (5-37); Blood Urea Nitrogen 14 mg/dL (9-16); Calcium 9.2 mg/dL (8.4-10.2); Carbon Dioxide 23 mmol/L (22-29); Chloride 107 mmol/L (96-108); Estimated Glomerular Filt Rate > 60; Potassium 4.3 mmol/L (3.3-5.1); Sodium 141 mmol/L (135-145); Total Protein 7.4 g/dL (6.5-8.0)
== END 2025-01-09 08:32 | disposition home or self-care (01) ==
LOC: HO.MANLDS 08:31
PROVIDERS: Visit Provider Physician Assistant
DX: E11.65 Type 2 diabetes mellitus with hyperglycemia (principal); Z79.4 Long term (current) use of insulin
CPT/HCPCS: 36415; 80053; 83036

== ENCOUNTER 2025-04-16 09:19 | Outpatient (REF) | payer MEDICARE, SELFPAY ==
--- OUTSIDE RECORDS SUMMARY | 2025-04-12 09:00 | XMS_ITS | Encounter Summary ---
Author Organization [facility] Address [address] [facility] [address] [place] [address] Phone Care Team Providers Care Home Health Occupational Therapist Name Role Phone Socrates Kim DO Primary Care Provider [phone] Reason for Referral * Outpatient Procedure - New Request Specialty Diagnoses / Procedures Referred By Gordo rosas Referred To Contact Diagnoses Coronary artery disease involving coronary bypass graft of standing rock heart without angina pectoris Procedures Adult Echo TTE Buster Diallo MD [address] [place] [address], [address] [address] Phone: tel: fax: mailto:[email or web address] Referral ID Status Reason Start Date Expiration Date V isits Requested Visits Authorized [id number] New Request 04/12/2025 1 1 Reason for Visit * Consultation (Routine) - Authorized Specialty Diagnoses / Procedures Referred By Gordo rosas Referred To Contact Cardiology Diagnoses 1 year follow up Procedures FOLLOW UP Socrates Kim DO Phone: tel: fax: [email or web address] Buster Diallo MD [address] [place] [address], [address] [address] Phone: tel: fax: mailto:[email or web address] Referral ID Status Reason Start Date Expiration Date V isits Requested Visits Authorized [id number] Authorized 04/12/2025 04/12/2026 6 6 Encounter Details Date Type Department Care Team (Latest Contact Info) Description 04/12/2025 9:00 AM EDT Office Visit [facility] [address] [facility] 3rd Floor, [address] [place] [address] Buster Diallo MD [address] [facility], [address] [place] [address] [email or web address] Coronary artery disease involving coronary bypass graft of standing rock heart without angina pectoris (Primary Dx); Coronary artery disease involving standing rock coronary artery of standing rock heart without angina pectoris; Essential hypertension; Mixed hyperlipidemia Social History Tobacco Use Types Packs/Day Years Used Date Smoking Tobacco: Former Cigarettes Smokeless Tobacco: Never Comments:Quit smoking cigare ttes 25 yrs ago; smokes an occasional cigar when playing cards Alcohol Use Standard Drinks/Week Comments Never 0 (1 standard drink = 0.6 oz pur e alcohol) none since 04/2023 Education Answer Date Recorded Are you interested in more education? Not on malgorzata e 11/06/2022 Are you concerned about learning? Not on file 11/06/2022 No 11/06/2022 No 11/06/2022 Digital Access Answer Date Recorded No 12/05/2022 No 12/05/2022 Reliable internet access at home? Not on file 12/05/2022 Device with a working camera? Not on file Intimate Partner Violence Answer Date R ecorded Are you denied basic needs s uch as food, clothing, or medical care? No 09/09/2023 In the past 12 months have y ou been in a relationship with a person who hurts, threatens, or tries to control you? No 09/09/2023 Are you denied basic needs s uch as food, clothing, or medical care? No 09/09/2023 In the past 12 months have y ou been in a relationship with a person who hurts, threatens, or tries to control you? No 09/09/2023 Sex and Gender Information Value Date Recorded Sex Assigned at Male 06/04/2018 1:18 PM EST Legal Sex Male 9:53 PM EDT Gender Identity Male 06/04/2018 1:18 PM EST Sexual Orientation Straight 06/04/2018 1: 18 PM EST documented as of this encounter Last Filed Vital Signs Vital Sign Reading Time Taken Comments Blood Pressure 142/76 04/12/2025 9:06 AM EDT Pulse 75 04/12/2025 9:06 AM EDT Temperature - - Respiratory Rate - - Oxygen Saturation 97% 04/12/2025 9:06 AM EDT Inhaled Oxygen Concentration - - Weight 89.4 kg (197 lb) 04/12/2025 9:06 AM EDT Height 175.3 cm (5' 9.02 ) 04/12/2025 9:06 AM ED T Body Mass Index 29.08 04/12/2025 9:06 AM EDT documented in this encounter Progress Notes * Buster Diallo MD - 04/12/2025 9:00 AM EDT [facility] Cardiology Follow-Up Visit Date: 04/12/2025 Primary Care Physician: Socraets Kim DO Primary Store Promoter: Yoel History of Presenting Illness: Jorge A Jack is a 70 y.o. male with past medical history of CAD status post four-vessel CABG, hypertension, dyslipidemia, and diabetes mellitus who presents today for follow-up. Past Medical History: Past Medical History: Diagnosis Date Anemia iron deficiency Ankle swelling resolved Arthritis hands BPH (benign prostatic hyperplasia) on meds - seeing a urologist Chipped tooth Chronic kidney disease (CKD) medication induced-taken off a lot of his meds and kidney function returned to normal ; sees Dr Kirkpatrick Coronary artery disease sees Dr Diallo COVID-2019 Diabetes controlled with meds Gallstone Hyperlipidemia pt denies Hypertensive disorder pt denies Kidney stone Myocardial infarction Raynaud disease S/P CABG x 4 11/2013 Wears eyeglasses Past Surgical History: Past Surgical History: Procedure Laterality Date BACK SURGERY remove part disc in lumbar area CABG X 4 Anel CABG X 4 Anel CARPAL TUNNEL RELEASE Left COLONOSCOPY COLONOSCOPY N/A 09/09/2023 Performed by Alirio Loya MD at [facility] ENDOSCOPY CORONARY ANGIOPLASTY CORONARY ARTERY BYPASS GRAFT 11/2013 CORONARY STENT PLACEMENT pre cabg ESOPHAGOGASTRODUODENOSCOPY N/A 09/09/2023 Performed by Alirio Loya MD at [facility] ENDOSCOPY KNEE SURGERY Right cartilage RELEASE CARPAL TUNNEL Right 12/22/2023 Performed by Michelle Serna MD at [facility] OR RELEASE CARPAL TUNNEL Left 05/22/2020 Performed by Michelle Serna MD at [facility] OR RELEASE TRIGGER FINGER-MIDDLE Right 12/22/2023 Performed by Michelle Serna MD at [facility] OR Current Medications: Outpatient Medications Marked as Taking for the 04/12/25 encounter (Office Visit) with Buster Diallo MD Medication Sig Dispense Refill Last Dispense ezetimibe (ZETIA) 10 mg tablet TAKE 1 TABLET DAILY 90 tablet 3 Unknown (outside pharmacy) LANTUS SOLOSTAR U-100 INSULIN 100 unit/mL (3 mL) InPn injection pen Inject 28 Units under the skin daily. In AM Unknown (patient-reported) multivitamin per tablet Take 1 tablet by mouth daily. Unknown (patient-reported) tamsulosin (FLOMAX) 0.4 mg Cp24 Take 0.4 mg by mouth daily. Unknown (patient-reported) Allergies: No Known Allergies Family History: Family History Problem Relation Age of Onset Stroke Father Social History: Social History Social History Narrative Not on file Social History Tobacco Use Smoking status: Former Types: Cigarettes Smokeless tobacco: Never Tobacco comments: Quit smoking cigarettes 25 yrs ago; smokes an occasional cigar when playing cards Substance Use Topics Alcohol use: Never Comment: none since 04/2023 Physical Examination: Vital Signs: Vitals: 04/12/25 0906 BP: (!) 142/76 Pulse: 75 SpO2: 97% Weight: 89.4 kg (197 lb) Height: 175.3 cm (5' 9.02 ) BMI: Body mass index is 29.08 kg/m??. Cardiovascular: Normal PMI, no thrills/heave. Normal S1 and S2. No added murmurs, gallops, or rubs. General Appearance: No acute distress, well-nourished. Neurologic: Alert, awake, and oriented, normal affect. Neck: No JVD or hepatojugular reflux. No enlargement of the thyroid. Carotid pulse 2+ bilaterally. No carotid bruits. Respiratory: Appropriate respiratory effort. Lungs clear to auscultation bilaterally, no wheezing/rhonchi/rales. Musculoskeletal: Normal curvature of the spine without kyphosis or scoliosis. Normal gait. Extremities/Skin: Normal hands and feet without stigmata of embolic or peripheral vascular disease.No clubbing or cyanosis noted. Relevant Testing: EKG: Repeat twelve-lead EKG here in the office shows sinus rhythm 61 bpm with normal axis and borderlinevoltage criteria for LVH. 04/13/2024 shows sinus rhythm 71 bpm with normal axis and normal voltage. 04/12/25 shows normal sinus rhythm 78 bpm with normal axis and normal voltage. Other cardiac testing: Carotid testing December 2021: Mild bilateral carotid plaquing without hemodynamically significant ICA stenoses demonstrated. Labs: Lab Results Component Value Date CHOL 134 06/11/2020 Lab Results Component Value Date HDL 66 06/11/2020 No results found for: LDLCALC Lab Results Component Value Date TRIG 69 06/11/2020 Lab Results Component Value Date CHOLHDL 2.0 (L) 06/11/2020 WBC Date Value Ref Range Status 10/07/2023 5.65 4.00 - 11.00 K/uL Final HGB Date Value Ref Range Status 10/07/2023 14.0 12.4 - 17.3 g/dL Final HCT Date Value Ref Range Status 10/07/2023 43.7 37.0 - 51.0 % Final Lab Results Component Value Date NA 139 08/31/2024 K 4.1 08/31/2024 CL 99 08/31/2024 CO2 25 08/31/2024 BUN 11 08/31/2024 CRE 1.00 08/31/2024 UCRE 62 10/07/2023 GLU 276 (H) 08/31/2024 CA 9.4 08/31/2024 GFR 82 08/31/2024 ANION 19 08/31/2024 Assessment: Jorge A Jack is a 70 y.o. male with past medical history of CAD status post four-vessel CABG, hypertension, dyslipidemia, and diabetes mellitus who presents today for follow-up. He returns today and is doing well without any symptoms concerning for angina or congestive heart failure. He is not doing any dedicated aerobic exercise so I spoke with him about this at length. I did not get any labs from the primary care office, but reminded him that his goal LDL should be <55. He is currently not taking any statin therapy but is on ezetimibe. This is unlikely to be achieving adequate lipid control for patient with a four-vessel CABG. Furthermore, his blood pressure is elevated and he tells me it has been elevated at several primarycare visits in a row. His goal BP should be consistently <130/80. He is currently not on any antihypertensive therapy. Given his presence of diabetes, I suggested starting on lisinopril or losartan, but he is nervous about his renal function, which is completely normal at this time. I strongly en couraged him to discuss this with his primary care office as he is having repeat labs with them tomorrow. Overall, I am concerned about the level of control over his risk factors. I would highly encourage you to get his blood pressure consistently less than 130/80 and his LDL consistently less than 55. Plan: He should be taking aspirin 81, a statin, and an ADALID/ARB. Goal BP <130/80. Goal LDL <55. Follow up: 6 months Electronically signed by: Buster Diallo MD [facility] 04/12/2025 documented in this encounter Plan of Treatment Upcoming Encounters Date Type Department Care Team (Late st Contact Info) Description 04/12/2025 Procedure Pass Echo Lab [place] [address] [place] [address] 09/25/2025 11:15 AM EDT Appointment Echo Lab [place] [address] Buster Diallo MD [address] [place] [address], [address] [address] 10/11/2025 9:40 AM EDT Office Visit [facility] [address] Floor, [address] [place] [address] Buster Diallo MD [address] [place] [address], [address] [address] Scheduled Orders Name Type Priority Associated Diagnoses Orde r Schedule ECG 12-LEAD ECG Routine Coronary artery disease involving coronary bypass graft of standing rock heart without angina pectoris Ordered: 04/12/2025 Adult Echo TTE Echocardiography Routine Coronary artery disease involving coronary bypass graft of standing rock heart without angina pectoris Expected: 07/13/2025, Expires: 01/10/2026 documented as of this encounter Visit Diagnoses Diagnosis Coronary artery disease involving coronary bypass graft of standing rock heart without angina pectoris- Primary Coronary artery disease involving standing rock coronary artery of standing rock heart without angina pectoris Essential hypertension Unspecified essential hypertension Mixed hyperlipidemia documented in this encounter Care Teams Home Health Occupational Therapist Relationship Specialty Start Date End Date Socrates Kim DO [address] [place] [address] [email or web address] PCP - General Internal Medicine 08/31/24 documented as of this encounter Additional Source Comments The information contained in this document represents components of the legal health record. It is not the complete legal health record.[facility]
--- OUTSIDE RECORDS SUMMARY | 2025-04-16 10:32 | XMS_ITS | Encounter Summary ---
Author Organization [facility] Address [address] [place] [address] [place] [address] Phone Care Team Providers Care Help Desk Administrator Name Role Phone Julio, Socrates A DO Primary Care Provider [phone] Bigda, Socrates A DO Unavailable Bigda, Socrates A DO Primary Care Provider [phone] Encounter Details Date Type Department Care Team (Late st Contact Info) Description 05/22/2020 Procedure Pass OR Admitting Dept - Virtual Department [address] [place] [address] Social History Tobacco Use Types Packs/Day Years Used Date Smoking Tobacco: Former Cigarettes Smokeless Tobacco: Never Comments:1 pack a week at th at time Alcohol Use Standard Drinks/Week Comments Yes 21 (1 standard drink = 0.6 oz pu re alcohol) soically 3-4 a day Sex and Gender Information Value Date Recorded Sex Assigned at Male 06/04/2018 1:18 PM EST Legal Sex Male 9:53 PM EDT Gender Identity Male 06/04/2018 1:18 PM EST Sexual Orientation Straight 06/04/2018 1: 18 PM EST documented as of this encounter Plan of Treatment Upcoming Encounters Date Type Department Care Team (Late st Contact Info) Description 04/12/2025 Procedure Pass Echo Lab [address] [place] [address] 09/25/2025 11:15 AM EDT Appointment Echo Lab [address] [place] [address] Buster Diallo MD 22 [facility], [address] [place] [address] [address] 10/11/2025 9:40 AM EDT Office Visit [facility] [address] [facility] 3rd Floor, [address] [place] [address] [address] Buster Diallo MD [address] [address] documented as of this encounter Visit Diagnoses Not on filedocumented in this encounter Care Teams Help Desk Administrator Relationship Specialty Start Date End Date Socrates Kim DO PCP - General 04/26/17 08/30/24 Socrates Kim DO [address] [place] [address] PCP - General Internal Medicine 08/31/24 Socrates Kim DO [address] [place] [address] Insurance Assigned Provider 10/16/23 10/15/24 documented as of this encounter Additional Source Comments The information contained in this document represents components of the legal health record. It is not the complete legal health record.[facility]
--- OUTSIDE RECORDS SUMMARY | 2025-04-16 10:32 | XMS_ITS | Encounter Summary ---
Author Organization [facility] Address [address] [facility] [address] [place] [address] Phone Care Team Providers Care Orthopedic Nurse Name Role Phone Biglucille, Socrates A DO Primary Care Provider [phone] Bigda, Socrates A DO Unavailable Bigda, Socrates A DO Primary Care Provider [phone] Encounter Details Date Type Department Care Team (Latest Contact Info) Description 12/11/2020 Transcribe Orders Virtual Department [address] [place] [address] Luis Kirkpatrick MD [address] [facility] [address] [place] [address] [email or web address] Microalbuminuric diabetic nephropathy (Primary Dx) Social History Tobacco Use Types Packs/Day Years [...] Info) Description 04/12/2025 Procedure Pass Echo Lab [place] [address] [place] [address] 09/25/2025 11:15 AM EDT Appointment Echo Lab [address] [place] [address] Buster Diallo MD [address] [place] [address], [address] [place] [address] [email or web address] 10/11/2025 9:40 AM EDT Office Visit [facility] [address] [place] [address] 3rd Floor, [address] [place] [address] Buster Diallo MD [address] [place] [address], [address] [place] [address] [email or web address] documented as of this encounter Results * US Kidneys (01/27/2021 3:54 PM EDT) Anatomical Region Laterality Modality Abdomen, Kidney Ultrasound 01/27/2021 4:00 PM EDT Impressions 01/27/2021 4:01 PM EDT 1.Normal kidneys. 2.Moderate prostatomegaly. Narrative 01/27/2021 4:01 PM EDT COMPARISON: None. RENAL ULTRASOUND FINDINGS: Right Kidney: measures 12 x 5 cm. No hydronephrosis, masses or calculi. Cortical echogenicity and thickness are normal. No perinephric fluid collections. Left Kidney: measures 12 x 5 cm. No hydronephrosis, masses or calculi. Cortical echogenicity and thickness are normal. No perinephric fluid collections. Additional findings: Moderate prostatomegaly with mass-effect upon the bladder base. Prostate measures 4.2 x 5.4 x 5.7 cm. Procedure Note Tino Joy MD - 01/27/2021 COMPARISON: None. RENAL ULTRASOUND FINDINGS: Right Kidney: measures 12 x 5 cm. No hydronephrosis, masses or calculi.Cortical echogenicity and thickness are normal. No perinephric fluidcollections. Left Kidney: measures 12 x 5 cm. No hydronephrosis, masses or calculi.Cortical echogenicity and thickness are normal. No perinephric fluidcollections. Additional findings: Moderate prostatomegaly with mass-effect upon thebladder base. Prostate measures 4.2 x 5.4 x 5.7 cm. IMPRESSION: 1.Normal kidneys. 2.Moderate prostatomegaly. us Luis Kirkpatrick MD [facility]NAL Final Result documented in this encounter Visit Diagnoses Diagnosis Microalbuminuric diabetic nephropathy- Primary Microalbuminuric diabetic nephropathy documented in this encounter Care Teams Orthopedic Nurse Relationship Specialty Start Date End Date Socrates Kim DO [email or web address] PCP - General 04/26/17 08/30/24 Socrates Kim DO [address] [place] [address] PCP - General Internal Medicine 08/31/24 Socrates Kim DO [address] [place] [address] [email or web address] Insurance Assigned Provider 10/16/23 10/15/24 documented as of this encounter Additional Source Comments The information contained in this document represents components of the legal health record. It is not the complete legal health record.[facility]
--- OUTSIDE RECORDS SUMMARY | 2025-04-16 10:32 | XMS_ITS | Encounter Summary ---
Author Organization [facility] Address [address] [place] [address] Phone Care Team Providers Care Automotive Quality Manager Name Role Phone Socrates Kim DO Primary Care Provider [phone] Julio, Socrates Valdez DO Unavailable Julio, Socrates Valdez DO Primary Care Provider [phone] Reason for Referral * Physical Therapy (Routine) - Closed Specialty Diagnoses / Procedures Referred By Contanthony rosas Referred To Contact Physical Therapy Diagnoses Encounter for rehabilitation System, Provider Not In, [facility] [address] [place] [address] Phone: tel: Referral ID Status Reason Start Date Expiration Date Visits Re quested Visits Authorized [id number] Closed 01/11/2018 07/11/2018 16 16 Encounter Details Date Type Department Care Team (Late st Contact Info) Description 12/16/2017 Transcribe Orders [facility] [address] [place] [address] Socrates Kim DO [address] [place] [address] [email or web address] Encounter for rehabilitation (Primary Dx) Social History Tobacco Use Types Packs/Day Years Used Date Smoking Tobacco: Never Assessed Sex and Gender Information Value Date Recorded Sex Assigned at Male 06/04/2018 1:18 PM EST Legal Sex Male 9:53 PM EDT Gender Identity Male 06/04/2018 1:18 PM EST Sexual Orientation Straight 06/04/2018 1: 18 PM EST documented as of this encounter Plan of Treatment Upcoming Encounters Date Type Department Care Team ([facility] st Contact Info) Description 04/12/2025 Procedure Pass Echo Lab [address] [place] [address] 09/25/2025 11:15 AM EDT Appointment Echo Lab [address] [place] [address] Buster Diallo MD [address] [place] [address], [address] [address] 10/11/2025 9:40 AM EDT Office Visit [facility] [address] 3rd Floor, [address] [address] Buster Diallo MD [address] [place] [address] [email or web address] Scheduled Referrals Name Type Priority Associated Diagnoses Orde r Schedule Ambulatory referral to [facility] Physical Therapy Outpatient Referral Routine Encounter for rehabilitation Ordered: 12/16/2017 documented as of this encounter Visit Diagnoses Diagnosis Encounter for rehabilitation- Primary documented in this encounter Care Teams Automotive Quality Manager Relationship Specialty Start Date End Date Socrates Kim DO PCP - General 04/26/17 08/30/24 Socrates Kim DO [address] [facility] [place] [address] PCP - General Internal Medicine 08/31/24 Socrates Kim DO [address] [facility] [place] [address] [email or web address] Insurance Assigned Provider 10/16/23 10/15/24 documented as of this encounter Additional Source Comments The information contained in this document represents components of the legal health record. It is not the complete legal health record.[facility]
--- OUTSIDE RECORDS SUMMARY | 2025-04-16 10:32 | XMS_ITS | Encounter Summary ---
Author Organization [facility] Address [address] [place] [address] [place] [address] Phone Care Team Providers Care Wardrobe Mistress Name Role Phone Socrates Kim Primary Care Provider [phone] Encounter Details Date Type Department Care Team (Late st Contact Info) Description 01/30/2025 Procedure Pass [facility], [address] [address] Social History Tobacco Use Types Packs/Day Years [...] Upcoming Encounters Date Type Department Care Team ([facility] st Contact Info) Description 04/12/2025 Procedure Pass Echo Lab [address] [place] [address] 09/25/2025 11:15 AM EDT Appointment Echo Lab [address] [place] [address] Buster Diallo MD [address] [place] [address] 10/11/2025 9:40 AM EDT Office Visit [facility] [address] [place] [address] 3rd Floor, [address] [place] [address] Buster Diallo MD [address] [place] [address] documented as of this encounter Visit Diagnoses Not on filedocumented in this encounter Care Teams Wardrobe Mistress Relationship Specialty Start Date End Date Socrates Kim DO [address] [place] [address] [place] [address] PCP - General Internal Medicine 08/31/24 documented as of this encounter Additional Source Comments The information contained in this document represents components of the legal health record. It is not the complete legal health record.[facility]
--- OUTSIDE RECORDS SUMMARY | 2025-04-16 10:32 | XMS_ITS | Encounter Summary ---
Author Organization [facility] Address [address] [place] [address] [place] [address] Phone Care Team Providers Care Fighting Vehicle Systems Maintainer Name Role Phone Julio, Socrates Valdez DO Primary Care Provider [phone] Bigda, Socrates A DO Unavailable Bigda, Socrates A DO Primary Care Provider [phone] Encounter Details Date Type Department Care Team (Latest Contact Info) Description 06/29/2017 Transcribe Orders [facility] [address] [place] [address] Socrates Llanes MD [address] [place] [address] [email or web address] Examination (Primary Dx) Social History Tobacco Use Types [...] Info) Description 04/12/2025 Procedure Pass Echo Lab [address] [place] [address] 09/25/2025 11:15 AM EDT Appointment Echo Lab [address] [place] [address] Buster Diallo MD [address] [facility], [address] [place] [address] 10/11/2025 9:40 AM EDT Office Visit [facility] [address] [place] [address] 3rd Floor, [address] [place] [address] Buster Diallo MD [address] [facility], [address] [place] [address] [email or web address] documented as of this encounter Results * (ABNORMAL) Lipid panel (06/29/2017 7:33 AM EST) HDL 60 mg/dL [facility] Comment: Interpretation: Risk Level Males Decreased >45 mg/dL Average 40-45 mg/dL Increased <40 mg/dL CHOLESTEROL 152 0 - 240 mg/dL [facility] TRIGLYCERIDES 155 30 - 160 mg/dL [facility] LDL 61 50 - 129 mg/dL [facility] Comment: LDL levels in terms of risk for coronary heart disease: <100 mg/dL: Optimal 100-129 mg/dL: Near or above optimal 130-159 mg/dL: Borderline high 160-189 mg/dL: High >190 mg/dL: Very High CARDIAC RISK RATIO 2.5(L) 3.4 - 5.0 C [facility] Blood 06/29/2017 7:33 AM EST 06/29/2017 7:53 AM EST us Socrates Llanes MD LAB BLOOD ORDERABLES Final Resu lt [facility] [address] [place] [address] documented in this encounter Visit Diagnoses Diagnosis Examination- Primary Unspecified examination documented in this encounter Care Teams Fighting Vehicle Systems Maintainer Relationship Specialty Start Date End Date Socrates Kim DO PCP - General 04/26/17 08/30/24 Socrates Kim DO [address] [place] [address] [email or web address] PCP - General Internal Medicine 08/31/24 Socrates Kim DO [address] [place] [address] [email or web address] Insurance Assigned Provider 10/16/23 10/15/24 documented as of this encounter Additional Source Comments The information contained in this document represents components of the legal health record. It is not the complete legal health record.[facility]
--- OUTSIDE RECORDS SUMMARY | 2025-04-16 10:32 | XMS_ITS | Encounter Summary ---
Author Organization [facility] Address [address] [place] [address] [place] [address] Phone Care Team Providers Care Bookkeeping Clerk Name Role Phone Julio, Socrates A DO Primary Care Provider [phone] Bigda, Socrates A DO Unavailable Bigda, Socrates A DO Primary Care Provider [phone] Encounter Details Date Type Department Care Team (Late st Contact Info) Description 09/09/2023 Procedure Pass [facility] Admitting Dept Virtual Department [address] [place] [address] Social History Tobacco Use Types Packs/Day Years Used Date Smoking Tobacco: Former Cigarettes Smokeless Tobacco: Never Comments:Quit smoking cigare ttes 25 yrs ago; smokes an occasional cigar when playing cards Alcohol Use Standard Drinks/Week Comments Not Currently 0 (1 standard drink = 0.6 oz [...] Info) Description 04/12/2025 Procedure Pass Echo Lab [address] [place] [address] 09/25/2025 11:15 AM EDT Appointment Echo Lab [address] [place] [address] Buster Diallo MD [address] [place] [address] 10/11/2025 9:40 AM EDT Office Visit [facility] [address] [place] [address] 3rd Floor, [address] [address] Buster Diallo MD [address] [place] [address] documented as of this encounter Visit Diagnoses Not on filedocumented in this encounter Care Teams Bookkeeping Clerk Relationship Specialty Start Date End Date Socrates Kim DO PCP - General 04/26/17 08/30/24 Socrates Kim DO [address] [place] [address] PCP - General Internal Medicine 08/31/24 Socrates Kim DO [address] [place] [address] [email or web address] Insurance Assigned Provider 10/16/23 10/15/24 documented as of this encounter Additional Source Comments The information contained in this document represents components of the legal health record. It is not the complete legal health record.[facility]
--- OUTSIDE RECORDS SUMMARY | 2025-04-16 10:32 | XMS_ITS | Encounter Summary ---
Author Organization [facility] Address [address] [place] [address] Phone Care Team Providers Care Health Information Management Director Name Role Phone Socrates Kim DO Primary Care Provider [phone] Socrates Kim DO Unavailable Socrates Kim DO Primary Care Provider [phone] Reason for Referral * Outpatient Procedure - Closed Specialty Diagnoses / Procedures Referred By Gordo rosas Referred To Contact Radiology Diagnoses Unspecified retinal vascular occlusion Procedures US Carotid Duplex Complete (Bilateral) Socrates Kim DO Phone: tel: fax: mailto:[email or web address] Referral ID Status Reason Start Date Expiration Date Visits Re quested Visits Authorized [id number] Closed 11/28/2021 11/28/2022 1 1 Encounter Details Date Type Department Care Team (Late st Contact Info) Description 11/28/2021 Transcribe Orders Virtual Department [address] [place] [address] Socrates Kim DO [address] [facility] [address] [email or web address] Unspecified retinal vascular occlusion (Primary Dx) Social History Tobacco Use Types [...] Info) Description 04/12/2025 Procedure Pass Echo Lab [address] [place] [address] 09/25/2025 11:15 AM EDT Appointment Echo Lab [address] [place] [address] Buster Diallo MD [address] [place] [address], [address] [place] [address] [email or web address] 10/11/2025 9:40 AM EDT Office Visit [facility] [address] [place] [address] 3rd Floor, [address] [place] [address] Buster Diallo MD [address] [place] [address], [address] [place] [address] [email or web address] documented as of this encounter Results * US Carotid Duplex Complete (Bilateral) (12/23/2021 2:27 PM EDT) Anatomical Region Laterality Modality Heart, Thoracic Vasculature, Neck Ultrasound 12/24/2021 12:4 5 PM EDT Impressions 12/24/2021 12:48 PM EDT Mild bilateral carotid plaquing without hemodynamically significant ICA stenoses demonstrated. POS - [id number] Narrative 12/24/2021 12:48 PM EDT COMPARISON: None CAROTID ULTRASOUND FINDINGS: Color duplex Doppler evaluation the carotid arteries was performed. On the right there is a trace amount of calcified plaque present in the mid CCA and a trace amount of mixed calcified/noncalcified plaque present in the bulb with a small amount extending into the proximal ICA. Peak systolic velocity in the common carotid artery was measured at 1.22 m/s and within the internal carotid artery at 1.12 m/s corresponding to a ratio of 0.92. No elevated diastolic velocities or significant ICA spectral broadening apparent. On the left there is a small amount of mixed plaque in the bulb and noncalcified plaque extending into the proximal ICA. Peak systolic velocity in the common carotid artery was measured at 1.18 m/s and within the internal carotid artery at 1.13 m/s corresponding to a ratio 0.96. There is borderline elevated end-diastolic velocity of 0.42 m/s and the distal ICA. No significant spectral broadening apparent. Measurements are consistent with the presence of less than 50% ICA stenoses. Antegrade flow was demonstrated in both vertebral arteries. Any stenosis measurement is relative to the distal ICA diameters. Procedure Note Alirio Nam MD - 12/24/2021 COMPARISON: None CAROTID ULTRASOUND FINDINGS: Color duplex Doppler evaluation the carotid arteries was performed. On the right there is a trace amount of calcified plaque present in themid CCA and a trace amount of mixed calcified/noncalcified plaque presentin the bulb with a small amount extending into the proximal ICA. Peaksystolic velocity in the common carotid artery was measured at 1.22 m/sand within the internal carotid artery at 1.12 m/s corresponding to aratio of 0.92. No elevated diastolic velocities or significant ICAspectral broadening apparent. On the left there is a small amount of mixed plaque in the bulb andnoncalcified plaque extending into the proximal ICA. Peak systolicvelocity in the common carotid artery was measured at 1.18 m/s and withinthe internal carotid artery at 1.13 m/s corresponding to a ratio 0.96.There is borderline elevated end-diastolic velocity of 0.42 m/s and thedistal ICA. No significant spectral broadening apparent. Measurements are consistent with the presence of less than 50% ICAstenoses. Antegrade flow was demonstrated in both vertebral arteries. Any stenosis measurement is relative to the distal ICA diameters. IMPRESSION: Mild bilateral carotid plaquing without hemodynamically significant ICAstenoses demonstrated. POS - [id number] us Socrates Kim DO CV US NEUROVASCULAR Final Result documented in this encounter Visit Diagnoses Diagnosis Unspecified retinal vascular occlusion- Primary Unspecified retinal vascular occlusion documented in this encounter Care Teams Health Information Management Director Relationship Specialty Start Date End Date Socrates Kim DO [email or web address] PCP - General 04/26/17 08/30/24 DanielSocrates adkins [address] [place] [address] PCP - General Internal Medicine 08/31/24 DanielSocrates adkins DO [address] [place] [address] Insurance Assigned Provider 10/16/23 10/15/24 documented as of this encounter Additional Source Comments The information contained in this document represents components of the legal health record. It is not the complete legal health record.[facility]
--- OUTSIDE RECORDS SUMMARY | 2025-04-16 10:32 | XMS_ITS | Encounter Summary ---
Author Organization [facility] Address [address] [place] [address] Phone Care Team Providers Care Liturgical Music Director Name Role Phone Socrates Kim DO Primary Care Provider [phone] Socrates Kim DO Unavailable Socrates Kim DO Primary Care Provider Reason for Referral * Outpatient Procedure - Closed Specialty Diagnoses / Procedures Referred By Gordo rosas Referred To Contact Radiology Diagnoses Encounter for screening for cardiovascular disorders Encounter for abdominal aortic aneurysm (AAA) screening Procedures US Abdominal Aortic Screening Socrates Kim DO Phone: tel: fax: mailto:[email or web address] Referral ID Status Reason Start Date Expiration Date Visits Re quested Visits Authorized [id number] Closed 07/21/2022 07/21/2023 1 1 Encounter Details Date Type Department Care Team (Late st Contact Info) Description 07/21/2022 Transcribe Orders Virtual Department [address] [place] [address] Socrates Kim DO [address] [facility] [place] [address] [email or web address] Encounter for screening for cardiovascular disorders (Primary Dx); Encounter for abdominal aortic aneurysm (AAA) screening Social History Tobacco Use Types Packs/Day Years [...] Info) Description 04/12/2025 Procedure Pass Echo Lab [address] [place] [address] 09/25/2025 11:15 AM EDT Appointment Echo Lab [address] [place] [address] Buster Diallo MD [address] [place] [address], [address] [place] [address] [email or web address] 10/11/2025 9:40 AM EDT Office Visit [facility] [address] [place] [address] 3rd Floor, [address] [place] [address] Buster Diallo MD [address] [place] [address], [address] [place] [address] [email or web address] documented as of this encounter Results * US Abdominal Aortic Screening (08/05/2022 10:08 AM EST) Anatomical Region Laterality Modality Abdomen Ultrasound 08/05/2022 12:1 9 PM EST Impressions 08/05/2022 12:32 PM EST 1. 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 COMPARISON: There is no prior study available for comparison. FINDINGS: Examination of the abdominal aorta demonstrates ectasia but no evidence of aneurysm. The abdominal aorta measures 2.5 cm proximally, 2.5 cm in its midportion, and 2.2 cm distally. The common iliac arteries are ectatic measuring 1.5 cm on the right and four cm on the left. Procedure Note Anna Cordero MD - 08/05/2022 US ABDOMINAL AORTIC SCREENING HISTORY: AAA screening TECHNIQUE: Ultrasound of the Abdominal Aorta. COMPARISON: There is no prior study available for comparison. FINDINGS: Examination of the abdominal aorta demonstrates ectasia but no evidence ofaneurysm. The abdominal aorta measures 2.5 cm proximally, 2.5 cm in itsmidportion, and 2.2 cm distally. The common iliac arteries are ectatic measuring 1.5 cm on the right andfour cm on the left. IMPRESSION: 1. Ectasia of the abdominal aorta without discrete aneurysm demonstratedsonographically Consider follow-up surveillance with abdominal aortic ultrasound orabdominal/pelvic CTA or MRA in 2-5 years us Socrates Kim DO IMG US ABDOMEN Final Result documented in this encounter Visit Diagnoses Diagnosis Encounter for screening for cardiovascular disorders- Primary Encounter for abdominal aortic aneurysm (AAA) screening Encounter for screening for cardiovascular disorders Encounter for abdominal aortic aneurysm (AAA) screening documented in this encounter Care Teams Liturgical Music Director Relationship Specialty Start Date End Date Socrates Kim DO [email or web address] PCP - General 04/26/17 08/30/24 Socrates Kim DO [address] [facility] [place] [address] [email or web address] PCP - General Internal Medicine 08/31/24 Socrates Kim DO [address] [facility] [place] [address] [email or web address] Insurance Assigned Provider 10/16/23 10/15/24 documented as of this encounter Additional Source Comments The information contained in this document represents components of the legal health record. It is not the complete legal health record.[facility]
--- OUTSIDE RECORDS SUMMARY | 2025-04-16 10:32 | XMS_ITS | Encounter Summary ---
Author Organization [facility] Address [address] [place] [phone] Phone Care Team Providers Care Lifter Name Role Phone Socrates Kim DO Primary Care Provider [phone] Bigda, Socrates Valdez DO Unavailable Bigda, Socrates Courtney DO Primary Care Provider [phone] Encounter Details Date Type Department Care Team (Late st Contact Info) Description 11/24/2017 Ancillary Orders Virtual Department [address] [place] [address] Socrates Kim, DO [address] [facility] [place] [address] [place] [address] [email or web address] Left-sided low back pain with left-sided sciatica, unspecified chronicity Social History Tobacco Use Types Packs/Day Years [...] Info) Description 04/12/2025 Procedure Pass Echo Lab [address] [place] [address] 09/25/2025 11:15 AM EDT Appointment Echo Lab [address] [place] [address] Buster Diallo MD [address] [facility], [address] [place] [address] [email or web address] 10/11/2025 9:40 AM EDT Office Visit [facility] [address] [facility] 3rd Floor, [address] [place] [address] Butser Diallo MD [address] [facility], [address] [place] [address] [email or web address] documented as of this encounter Results * XR LUMBOSACRAL SPINE 4 OR MORE VIEWS (12/08/2017 8:42 AM EDT) Anatomical Region Laterality Modality L-spine Radiographic Hazel ging 12/08/2017 10:0 6 AM EDT Impressions 12/08/2017 10:11 AM EDT No compression fractures. Moderate degenerative disc and endplate changes at L5-S1 and, to a lesser degree at L4-L5. Moderate-severe facet arthropathy, more prominent on left than right, at L4-L5. POS - [id number] Narrative 12/08/2017 10:11 AM EDT HISTORY: Lower back pain with left-sided sciatic symptoms. COMPARISON: CT chest and abdomen 10/27/06. FINDINGS: AP, lateral and bilateral oblique views. No compression fractures or subluxations. Moderate disc space narrowing and degenerative endplate changes at L5-S1. Mild-moderate disc space narrowing at L4-L5 with mild degenerative endplate changes. Other disc spaces well-maintained. Small anterior osteophytes at multiple levels. Osteophytes are moderate in size at L1-L2. Moderate-severe bilateral facet arthropathy at L4-L5, somewhat more on left than right. More mild facet arthropathy at L3-L4 and L5-S1. Procedure Note Rodriguez Yeager MD - 12/08/2017 HISTORY: Lower back pain with left-sided sciatic symptoms. COMPARISON: CT chest and abdomen 10/27/06. FINDINGS: AP, lateral and bilateral oblique views. No compression fractures or subluxations. Moderate disc space narrowingand degenerative endplate changes at L5-S1. Mild-moderate disc spacenarrowing at L4- L5 with mild degenerative endplate changes. Other discspaces well-maintained. Small anterior osteophytes at multiple levels.Osteophytes are moderate in size at L1- L2. Moderate-severe bilateralfacet arthropathy at L4-L5, somewhat more on left than right. More mildfacet arthropathy at L3-L4 and L5-S1. IMPRESSION: No compression fractures. Moderate degenerative disc and endplate changesat L5- S1 and, to a lesser degree at L4-L5. Moderate-severe facetarthropathy, more prominent on left than right, at L4-L5. POS - [id number] us Socrates Kim DO IMG XR SPINE Final Result documented in this encounter Visit Diagnoses Diagnosis Left-sided low back pain with left-sided sciatica, unspecified chronicity Left-sided low back pain with left-sided sciatica, unspecified chronicity documented in this encounter Care Teams Lifter Relationship Specialty Start Date End Date Socrates Kim DO PCP - General 04/26/17 08/30/24 Socrates Kim DO [address] [place] [address] [email or web address] PCP - General Internal Medicine 08/31/24 Socrates Kim DO [address] [place] [address] Insurance Assigned Provider 10/16/23 10/15/24 documented as of this encounter Additional Source Comments The information contained in this document represents components of the legal health record. It is not the complete legal health record.[facility]
--- OUTSIDE RECORDS SUMMARY | 2025-04-16 10:32 | XMS_ITS | Clinical Summary ---
Author Organization [facility] Address [address] [place] [address] [place] [address] Phone Care Team Providers Care Dealer Sales Manager Name Role Phone Avani Schwartz DO Primary Care Provider [phone] Allergies No known active allergies Medications tamsulosin (FLOMAX) 0.4 mg Cp24 Take 0.4 mg by mouth daily. Active LANTUS SOLOSTAR U-100 INSULIN 100 unit/mL (3 mL) InPn injection pen Inject 28 Units under the skin daily. In AM 4 Active multivitamin per tablet Take 1 tablet by mouth daily. Active ezetimibe (ZETIA) 10 mg tabletIndicatio ns:Medication refill TAKE 1 TABLET DAILY 90 tablet 3 5 Active finasteride (PROSCAR) 5 mg tablet Take 1 tablet by mouth daily. 04/12/20 25 Discontinu ed(No longer taking) Active Problems Problem Noted Date Diagnosed Date Right carpal tunnel syndrome 12/22/2023 Trigger finger, right middle finger 12/22/2023 Coronary artery disease invo lving comanche coronary artery of comanche heart without angina pectoris 06/30/2017 Overview (06/30/2017): 11/2013 CABG X 4 DD Assessment & Plan (04/14/2023 10:43 AM EDT): He has a history of coronary artery disease and had coronary artery bypass grafting years ago. He feels well. He has not had any exertional symptoms. We will continue to optimize his risk factors. Blood pressure in the office today is adequately controlled. Continue rosuvastatin and aspirin. He did have a coronary calcium score which is not an ideal test given the patient's history of bypass surgery. Assessment & Plan (06/12/2020 11:38 AM EST): Feels well. Active. Assessment & Plan (01/24/2020 12:10 PM EDT): Continuing to feel well. Remains active. Assessment & Plan (05/19/2019 8:10 AM EST): Doing well. Encouraged to do some regular exercise. Assessment & Plan (09/19/2018 3:28 PM EDT): Continuing to do well. Assessment & Plan (03/21/2018 2:21 PM EDT): Doing well without symptoms at a fairly high level of activity. Assessment & Plan (06/30/2017 2:42 PM EST): Doing well without symptoms. Essential hypertension 06/30/2017 Assessment & Plan (04/14/2023 10:41 AM EDT): Blood pressure in the office today is adequately controlled. No medication changes. Assessment & Plan (06/12/2020 11:38 AM EST): Well-controlled on present therapy. No changes. Assessment & Plan (01/24/2020 12:11 PM EDT): Controlled on present therapy. No changes. Assessment & Plan (05/19/2019 8:10 AM EST): Controlled on present therapy. No changes. Assessment & Plan (09/19/2018 3:29 PM EDT): Controlled on present therapy. No changes. Assessment & Plan (03/21/2018 2:23 PM EDT): Well-controlled on present therapy. No medication changes. Assessment & Plan (06/30/2017 2:42 PM EST): Elevated to a systolic of 160 on arrival in 150 when I took it later in the visit. I put him back to the lisinopril at 5 mg a day and will call if he gets lightheaded. Mixed hyperlipidemia 06/30/2017 Assessment & Plan (04/14/2023 10:42 AM EDT): Continue rosuvastatin. Assessment & Plan (06/12/2020 11:39 AM EST): Good profile with an LDL in the 50s, HDL in the 60s and triglycerides in the 60s. Metabolic profile is normal. Repeat in 6 months. Assessment & Plan (01/24/2020 12:11 PM EDT): Remains on high-dose statin and Zetia. Lipid labs repeated before his next visit. Assessment & Plan (05/19/2019 8:11 AM EST): Excellent profile with an LDL of about 60 HDL in the mid 60s and triglycerides also in the mid 60s. Creatinine is normal at 0.5 with a BUN of 8 and a potassium of 3.6. LFTs remain mildly elevated but significantly improved over the last set. I have made no changes. Assessment & Plan (09/19/2018 3:29 PM EDT): He has been drinking less and he is liver transaminases are now normal. Lipid profile is fine with an LDL in the 40s and HDL in the 50s. Assessment & Plan (03/21/2018 2:22 PM EDT): Both LDL and HDL are 75 with triglycerides at 86. Creatinine is normal at 0.6. Both transaminases are about twice normal. I will repeat his LFTs in 3 months. I have told him his got a cut back on the drinking as much as he can. At this level he is eligible for the onset of atrial fibrillation and/or cardiomyopathy. Assessment & Plan (06/30/2017 2:43 PM EST): Recent labs include an LDL of 61 HDL of 60 and triglycerides 155. Left carpal tunnel syndrome Encounters Date Type Department Care Team Description 04/12/2025 9:00 AM EDT Office Visit [facility] [address], [address] [place] [address] Buster Diallo MD Coronary artery disease involving coronary bypass graft of comanche heart without angina pectoris (Primary Dx); Coronary artery disease involving comanche coronary artery of comanche heart without angina pectoris; Essential hypertension; Mixed hyperlipidemia 03/15/2025 8:58 AM EDT - 03/15/2025 11:59 PM EDT Hospital Encounter [address] [address] Avani Schwartz DO Discharge Disposition: Home or Self Care 01/30/2025 Procedure Pass [address] [address] 01/30/2025 Transcribe Orders Virtual Department [address] [place] [address] Winsome Yin PA Right shoulder pain, unspecified chronicity (Primary Dx) from Last 3 Months Immunizations Immunization Administration Dates Next Due COVID-19 (Pre-05/03) Pfizer Vaccine, mRNA, PF Influenza Quadrivalent Preservative Free IM 03/13 Influenza Quadrivalent w/ Preservative IM 2019 Pneumococcal polysaccharide PPSV23 04/08/2020 Td, unspecified formulation 08/24/2011 Zoster live 11/26/2017,09/22/2017 Family History Medical History Relation Comments Stroke Father 2 Relation Status Comments Father 1 Father 2 Social History Tobacco Use Types Packs/Day Years [...] Orientation Straight 06/04/2018 1: 18 PM EST Last Filed Vital Signs Vital Sign Reading Time Taken Comments Blood Pressure 142/76 04/12/2025 9:06 AM EDT Pulse 75 04/12/2025 9:06 AM EDT Temperature 36.3 C (97.3 F) 12/22/2023 11:37 AM EDT Respiratory Rate 20 12/22/2023 11:12 AM EDT Oxygen Saturation 97% 04/12/2025 9:06 AM EDT Inhaled Oxygen Concentration - - Weight 89.4 kg (197 lb) 04/12/2025 9:06 AM EDT Height 175.3 cm (5' 9.02 ) 04/12/2025 9:06 AM ED T Body Mass Index 29.08 04/12/2025 9:06 AM EDT Plan of Treatment Upcoming Encounters Date Type Department Care Team (Late st Contact Info) Description 04/12/2025 Procedure Pass Echo Lab [address] [place] [address] 09/25/2025 11:15 AM EDT Appointment Echo Lab [address] [place] [address] Buster Diallo MD [address] [place] [address], [address] [place] [address] .Status4 10/11/2025 9:40 AM EDT Office Visit [facility] [address] [place] [address] [address]rd Floor, [address] [place] [address] Buster Diallo MD [address] [facility], [address] [place] [address] Health Maintenance Due Date Last Done Comments DEPRESSION SCREENING 1969 SMOKING Hx and SMOKELESS TOBACCO SCREENING 1970 COLOGUARD 2002 FIT TEST 2002 FOBT 2002 SIGMOIDOSCOPY 2002 VIRTUAL COLONOSCOPY 2002 RSV VACCINE (1 - Risk 60-74 years 1-dose series) 2017 ZOSTER VACCINES (2 of 3) 01/21/2018 11/26/2017, 09/09 PNEUMOCOCCAL VACCINES (50+ years) (2 of 2 - PCV) 04/08/2021 04/08/2020 LIPID PANEL 07/16/2024 07/16/2023, 01/10, 02/02/2023, Additional history exists DIABETIC EYE EXAM 08/31/2024 URINE MICROALBUMIN/CREATININE RATIO 08/31/2024 06/14/2023, 05/26/2023, 10/14/2022, Additional history exists HEMOGLOBIN A1C 11/28/2024 08/31/2024, 04/0 03/2024, 07/16/2023, Additional history exists INFLUENZA VACCINE (#1) 2025 , 04/08/2020, 04/08/2020 COVID-19 VACCINE ( season) 2025 07/23/2021, 11/14/2020 BLOOD PRESSURE 10/11/2025 04/12/2025 Adult Td,Tdap Booster 01/13/2033 01/13/2023, 012 COLONOSCOPY 09/08/2033 09/09/2023 COLORECTAL CANCER SCREENING 09/08/2033 ABDOMINAL AORTIC ANEURYSM (AAA) SCREENING Completed 08/05/2022 HEPATITIS C SCREENING Completed 10/07/2023 , 08/04/2023, 07/06/2023, Additional history exists HEPATITIS A VACCINES Aged Out No long er eligible based on patient's age to complete this topic HIB VACCINES Aged Out No longer eligi ble based on patient's age to complete this topic MENINGOCOCCAL VACCINES (ACWY) Aged Out No longer eligible based on patient's age to complete this topic MENINGOCOCCAL VACCINES (B) Aged Out N o longer eligible based on patient's age to complete this topic Medical Devices Implanted Type Area Ticket Manager Device Identifier Shelf Expiration Date Model / Serial / Lot Stent Stent Heart Wire Wire Sternum Procedures Procedure Name Priority Date/Time Associated Diagnosis Comments MRI SHOULDER WITHOUT CONTRAST (RIGHT) Routine 03/15/2025 10:09 AM EDT Right shoulder pain, unspecified chronicity HEMOGLOBIN A1C Routine 08/31/2024 8:31 AM EST Type II diabetes mellitus with nephropathy HEPATITIS C ANTIBODY, QUALITATIVE Routine 10/07/2023 9:37 AM EDT Need for hepatitis C screening test ENDOSCOPY, COLON 09/09/2023 1:42 PM EST US ABDOMINAL AORTIC SCREENING Routine 08/05/2022 10:08 AM EST Encounter for screening for cardiovascular disorders Encounter for abdominal aortic aneurysm (AAA) screening MICROALBUMIN/CREAT ININE RATIO, RANDOM URINE Routine 12/26/2020 5:06 PM EDT Macroalbuminuric diabetic nephropathy LIPID PANEL Routine 06/11/2020 7:44 AM EST Pure hypercholesterolemia from Last 3 Months or Most Recently Relevant to Health Maintenance Results * MRI SHOULDER WITHOUT CONTRAST (RIGHT) (03/15/2025 10:09 AM EDT) Anatomical Region Laterality Modality Shoulder Right Magnetic Resonan ce 03/15/2025 6:11 PM EDT Impressions 03/15/2025 6:20 PM EDT 1. Severe degenerative change of the glenohumeral joint. Moderate to marked degenerative change of the acromioclavicular joint. 2. Low-grade partial-thickness interstitial tear of the supraspinatus/infraspinatus tendon junction footprint. Moderate subscapularis tendinosis. 3. Severe tendinosis of the intracapsular long head of the biceps tendon. 4. Small glenohumeral joint effusion with a large joint body within the subscapularis recess. 5. Small volume fluid within the subacromial subdeltoid bursa. Narrative 03/15/2025 6:20 PM EDT MRI SHOULDER WITHOUT CONTRAST (RIGHT) Referring clinician's provided indication for this examination in Epic: Outside Radiology Order; ADVANCED ARTHRITIC CHANGES IN THE R SHOULDER W/ REDUCED FLEXATION & INTERNAL ROTATION W/ POS EMPTY CAN - R/O ROTATOR CUFF TEAR TECHNIQUE: Multi-sequence, multi-planar MRI of the shoulder without intravenous contrast. COMPARISON: None FINDINGS: Coracoacromial Arch: There is moderate to marked degenerative change of the acromioclavicular joint. There is small volume fluid within the subacromial subdeltoid bursa. Rotator Cuff: There is a low-grade partial-thickness interstitial tear of the supraspinatus/infraspinatus tendon junction footprint measuring 6 mm in the AP dimension (series 6 image 5, series 4 images 11-12). There is moderate subscapularis tendinosis. The teres minor tendon is unremarkable. There is marked fatty infiltration of the teres minor muscle without evidence of a quadrilateral space lesion. There is mild fatty infiltration of the supraspinatus, infraspinatus, and subscapularis muscles. Glenoid Labrum and Biceps Tendon: Evaluation of the labrum is limited in the absence of intracapsular contrast. Within this limitation, there is marked diffuse labral degeneration. The long head of the biceps tendon is normally located and intact. There is severe tendinosis of the intracapsular portion. Bones: There is no evidence of acute fracture or dislocation. Glenohumeral Joint: There is diffuse full-thickness loss of the glenohumeral articular cartilage with associated osseous remodeling there is a small glenohumeral joint effusion. There is a joint body within the subscapularis recess measuring 1.5 x 3.1 x 2.4 cm (series 2 image 21, series 3 image 24).. There is a large osteophyte along the inferior humeral head. Procedure Note Nohemy Avila MD - 03/15/2025 MRI SHOULDER WITHOUT CONTRAST (RIGHT) Referring clinician's provided indication for this examination in Epic:Outside Radiology Order; ADVANCED ARTHRITIC CHANGES IN THE R SHOULDER W/REDUCED FLEXATION & INTERNAL ROTATION W/ POS EMPTY CAN - R/O ROTATOR CUFFTEAR TECHNIQUE: Multi-sequence, multi-planar MRI of the shoulder withoutintravenous contrast. COMPARISON: None FINDINGS: Coracoacromial Arch: There is moderate to marked degenerative change ofthe acromioclavicular joint. There is small volume fluid within thesubacromial subdeltoid bursa. Rotator Cuff: There is a low-grade partial-thickness interstitial tear ofthe supraspinatus/infraspinatus tendon junction footprint measuring 6 mmin the AP dimension (series 6 image 5, series 4 images 11-12). There ismoderate subscapularis tendinosis. The teres minor tendon is unremarkable.There is marked fatty infiltration of the teres minor muscle withoutevidence of a quadrilateral space lesion. There is mild fatty infiltrationof the supraspinatus, infraspinatus, and subscapularis muscles. Glenoid Labrum and Biceps Tendon: Evaluation of the labrum is limited inthe absence of intracapsular contrast. Within this limitation, there ismarked diffuse labral degeneration. The long head of the biceps tendon isnormally located and intact. There is severe tendinosis of theintracapsular portion. Bones: There is no evidence of acute fracture or dislocation. Glenohumeral Joint: There is diffuse full-thickness loss of theglenohumeral articular cartilage with associated osseous remodeling thereis a small glenohumeral joint effusion. There is a joint body within thesubscapularis recess measuring 1.5 x 3.1 x 2.4 cm (series 2 image 21,series 3 image 24).. There is a large osteophyte along the inferiorhumeral head. IMPRESSION: 1. Severe degenerative change of the glenohumeral joint. Moderate tomarked degenerative change of the acromioclavicular joint. 2. Low-grade partial-thickness interstitial tear of thesupraspinatus/infraspinatus tendon junction footprint. Moderatesubscapularis tendinosis. 3. Severe tendinosis of the intracapsular long head of the bicepstendon. 4. Small glenohumeral joint effusion with a large joint body within thesubscapularis recess. 5. Small volume fluid within the subacromial subdeltoid bursa. us Avani Schwartz DO IMG MR EXTREMITY Final Result * (ABNORMAL) Hemoglobin A1c (08/31/2024 8:31 AM EST) HEMOGLOBIN A1C 8.6(H) 4.3 - 5.8 % [facility] Blood 08/31/2024 8:31 AM EST 08/31/2024 8:34 AM EST us Winsome MCGILL LAB BLOOD ORDERABLES Final Result Performing Organization Address City/[facility]/ZIP Co de Phone Number [address] [address] * Hepatitis C antibody, qualitative (10/07/2023 9:37 AM EDT) HCV NON-REACTIV E NON-REACTI VE [facility] Blood 10/07/2023 9:37 AM EDT 10/07/2023 9:45 AM EDT us Luis Kirkpatrick MD LAB BLOOD ORDERABLES Final Resul t Performing Organization Address [facility]/ZIP Co de Phone Number [address] [address] * ENDOSCOPY, COLON (09/09/2023 1:42 PM EST) Narrative Transcriptions Urmila Loya MD - 09/09/2023 1:42 PM EST [facility] Patient Name: Jorge A Marcie Attending MD:: URMILA LOYA MD, Procedure Date: 09/09/2023 1:42 PM Date of : 1955 Age: 68 Admit Type: Outpatient Gender: Male Room: [place] [address] Referring MD: AVANI SCHWARTZ DO Exam Type: Colonoscopy Indications: Screening for colorectal malignant neoplasm, Last colonoscopy: date unknown (unable to locate last colonoscopy report), Last colonoscopy more than10 years ago Medications: Propofol per Anesthesia Procedure: Informed consent was obtained from the patientafter discussion of the indications, limitations, alternatives, benefits, and risks of the procedure. Risks specifically discussed include but are not limited to medication reactions, missed lesions, bleeding, perforation, or the need for emergent surgery. Throughout the procedure, the patient's blood pressure, pulse, end-tidal CO2, and oxygensaturations were monitored continuously. The Olympus adult variable colonoscope [id number] #[id number] was introduced through the anus and advanced to the terminal ileum, with identification of theappendiceal orifice and IC valve. The terminal ileum, the appendiceal orifice and the rectum werephotographed. The colonoscopy was performed without difficulty.The patient tolerated the procedure well. The qualityof the bowel preparation was adequate. The bowel preparation used was GoLYTELY via split dose instruction. Complications: No immediate complications. Estimated blood loss:None. Findings: The digital rectal exam was normal. Pertinent negatives include normal prostate (size, shape, and consistency). Hemorrhoids were found on perianal exam. The retroflexed view of the distal rectum and anal verge was normal and showed no anal or rectal abnormalities. An 18 mm polyp was found in the rectum. The polypwas semi-sessile. The polyp was removed with a hotsnare. Resection and retrieval were complete. Multiple small-mouthed diverticula were found inthe sigmoid colon. A single medium-mouthed diverticulum was found inthe ascending colon. The exam was otherwise without abnormality. The terminal ileum appeared normal. Retroflexion in the right colon was performed. Impression: - Hemorrhoids found on perianal exam. - The distal rectum and anal verge are normal on retroflexion view. - One 18 mm polyp in the rectum, removed with a hot snare. Resected and retrieved. - Diverticulosis in the sigmoid colon. - Diverticulosis in the ascending colon. - The examination was otherwise normal. - The examined portion of the ileum was normal. Recommendation: - No aspirin, ibuprofen, naproxen, or other non-steroidal anti-inflammatory drugs for 2 weeks after polyp removal. - Repeat colonoscopy in 3 years for surveillancebased on pathology results. URMILA LOYA MD 09/09/2023 2:22:44 PM This report has been signed electronically. Number of Addenda: 0 Note Initiated On: 09/09/2023 1:42 PM Procedure Code(s): --- Professional --- 75896, Colonoscopy, flexible; with removal of tumor(s), polyp(s), or other lesion(s) by snare technique --- Technical --- 45417, Colonoscopy, flexible; with removal of tumor(s), polyp(s), or other lesion(s) by snare technique Diagnosis Code(s): --- Professional --- Z12.11, Encounter for screening for malignantneoplasm of colon K64.9, Unspecified hemorrhoids D12.8, Benign neoplasm of rectum K57.30, Diverticulosis of large intestine without perforation or abscess without bleeding --- Technical --- Z12.11, Encounter for screening for malignantneoplasm of colon K64.9, Unspecified hemorrhoids D12.8, Benign neoplasm of rectum K57.30, Diverticulosis of large intestine without perforation or abscess without bleeding CPT copyright 2021 [employer]. All rights reserved. The codes documented in this report are preliminary and upon clerk specialist reviewmay be revised to meet current compliance requirements. Procedure Date: 09/09/2023 1:42:[address] [place] [address] us Avani A Bigda DO GI PROCEDURE ORDERABLES Final Re sult * US Abdominal Aortic Screening (08/05/2022 10:08 [...] CTA or MRA in 2-5 years us Avani A Bigda DO IMG US ABDOMEN Final Result * Microalbumin/creatinine ratio, random urine (12/26/2020 5:06 PM EDT) URINE MICROALBUMIN <1.2 0 - 2.3 mg/dL [facility] URINE CREATININE 83 mg/dL ACOUSTICAL ENGINEER [facility] MICROALB/CRE RATIO NOT CALCULATED 0 - 20 mg/g Cre [facility] Comment:due to Microalbumin <1.2 Urine (Urine) 12/26/2020 5:0 6 PM EDT 12/26/2020 6:19 PM EDT us Luis Kirkpatrick MD URINE ORDERABLES Final Result Performing Organization Address [facility] Co de Phone Number [address] [address] * (ABNORMAL) Lipid panel (06/11/2020 7:44 AM EST) HDL 66 mg/dL [facility] Comment: Interpretation <40 mg/dL: Low HDL cholesterol (major risk factor for CHD) Greater than or equal to 60 mg/dL: High HDL cholesterol ( negative risk factor for CHD) HDL - cholesterol is affected by a number of factors, e.g. smoking, excerise, hormones, sex and age. CHOLESTEROL 134 0 - 240 mg/dL [facility] TRIGLYCERIDES 69 30 - 160 mg/dL [facility] LDL 54 50 - 129 mg/dL [facility] Comment: LDL levels in terms of risk for coronary heart disease: <100 mg/dL: Optimal 100-129 mg/dL: Near or above optimal 130-159 mg/dL: Borderline high 160-189 mg/dL: High >190 mg/dL: Very High CARDIAC RISK RATIO 2.0(L) 3.4 - 5.0 [facility] Blood 06/11/2020 7:44 AM EST 06/11/2020 8:10 AM EST us Avani Llanes MD LAB BLOOD ORDERABLES Final Resu lt Performing Organization Address City/[facility]/ZIP Co de Phone Number [address] [address] from Last 3 Months or Most Recently Relevant to Health Maintenance Insurance MEDICARE PART A & [place] [address] [address] MEDICARE HMO BLUE REPLACEMENT MEDICARE PART A & B [facility] MEDICARE HMO BLUE REPLACEMENT MEDICARE PART A & B [place] MEDICARE HMO BLUE REPLACEMENT MEDICARE PART A & [place] [address] MEDICARE HMO BLUE REPLACEMENT MEDICARE PART A & B MEDICARE HMO BLUE REPLACEMENT MEDICARE PART A & B [place] MEDIC[place] H[place] BLUE REPLACEMENT Care Teams Dealer Sales Manager Relationship Specialty Start Date End Date Avani Schwartz DO [address] [place] [id number] PCP - General Internal Medicine 08/31/24 Additional Source Comments The information contained in this document represents components of the legal health record. It is not the complete legal health record.[facility]
--- OUTSIDE RECORDS SUMMARY | 2025-04-16 10:32 | XMS_ITS | Encounter Summary ---
Author Organization [facility] Address [address] [place] [address] [place] [phone] Phone Care Team Providers Care Cargo Surveyor Name Role Phone Julio, Socrates A DO Primary Care Provider [phone] Bigda, Socrates A DO Unavailable Bigda, Socrates A DO Primary Care Provider [phone] Encounter Details Date Type Department Care Team (Late st Contact Info) Description 12/22/2023 Procedure Pass OR Admitting Dept - Virtual Department [address] [place] [address] Social History Tobacco Use Types Packs/Day Years [...] Description 04/12/2025 Procedure Pass Echo Lab [address] [place] [address] 09/25/2025 11:15 AM EDT Appointment Echo Lab [address] [place] [address] Buster Diallo MD [address] [place] [address] 10/11/2025 9:40 AM EDT Office Visit [facility] [address] [place] [address] [address]rd Floor, [address] [address] Buster Diallo MD [address] [place] [phone] documented as of this encounter Visit Diagnoses Not on filedocumented in this encounter Care Teams Cargo Surveyor Relationship Specialty Start Date End Date Socrates Kim DO PCP - General 04/26/17 08/30/24 Socrates Kim DO [address] [place] [address] [place] [address] PCP - General Internal Medicine 08/31/24 Socrates Kim DO [address] [place] [address] [email or web address] Insurance Assigned Provider 10/16/23 10/15/24 documented as of this encounter Additional Source Comments The information contained in this document represents components of the legal health record. It is not the complete legal health record.[facility]
--- OUTSIDE RECORDS SUMMARY | 2025-04-16 10:32 | XMS_ITS | Encounter Summary ---
Author Organization [facility] Address [address] [place] [address] Phone Care Team Providers Care Deployment Manager Name Role Phone Julio, Socrates A DO Primary Care Provider [phone] Bigda, Socrates A DO Unavailable Bigda, Socrates A DO Primary Care Provider [phone] Encounter Details Date Type Department Care Team (Late st Contact Info) Description 04/24/2020 Prep for Surgery [facility] Medicine [address] [place] [address] Michelle Serna MD [address] [place] [address] Orthopedics & Sports Medicine, [facility] [place] [address] [email or web address] Social History Tobacco Use Types Packs/Day Years Used Date Smoking Tobacco: Former Smokeless Tobacco: Never Alcohol Use Standard Drinks/Week Comments Yes 0 (1 standard drink = 0.6 oz pur e alcohol) soically Sex and Gender Information Value Date Recorded Sex Assigned at Male 06/04/2018 1:18 PM EST Legal Sex Male 9:53 PM EDT Gender Identity Male 06/04/2018 1:18 PM EST Sexual Orientation Straight 06/04/2018 1: 18 PM EST documented as of this encounter Plan of Treatment Upcoming Encounters Date Type Department Care Team (Late st Contact Info) Description 04/12/2025 Procedure Pass Echo [facility] [address] [place] [address] 09/25/2025 11:15 AM EDT Appointment Echo Lab [address] [place] [address] Buster Diallo MD [address] [place] [address], [address] [address] 10/11/2025 9:40 AM EDT Office Visit [facility] [address] [place] [address] Dr 3rd Floor, [address] [place] [address] Buster Diallo MD [address] [place] [address] documented as of this encounter Visit Diagnoses Not on filedocumented in this encounter Care Teams Deployment Manager Relationship Specialty Start Date End Date Socrates Kim DO PCP - General 04/26/17 08/30/24 Socrates Kim DO [address] [place] [address] PCP - General Internal Medicine 08/31/24 Socrates Kim DO [address] [place] [address] Insurance Assigned Provider 10/16/23 10/15/24 documented as of this encounter Additional Source Comments The information contained in this document represents components of the legal health record. It is not the complete legal health record.[facility]
[2025-04-16 14:05] LABS: Alanine Aminotransferase 96 U/L (0-40); Albumin Level 4.7 g/dL (3.5-5.0); Alkaline Phosphatase 97 U/L (39-117); Anion Gap 15 (12-20); Aspartate Amino Transferase 113 U/L (5-37); Blood Urea Nitrogen 14 mg/dL (9-16); Calcium 9.9 mg/dL (8.4-10.2); Carbon Dioxide 26 mmol/L (22-29); Chloride 105 mmol/L (96-108); Cholesterol 302 mg/dL (<200); Estimated Glomerular Filt Rate > 60; HDL Cholesterol 67 mg/dL (>40); Potassium 4.7 mmol/L (3.3-5.1); Sodium 141 mmol/L (135-145); Total Protein 8.0 g/dL (6.5-8.0); Triglycerides 141 mg/dL (<150)
[2025-04-16 14:12] LABS: Hemoglobin A1C 263.8455 umol/L; Total Hemoglobin (HGBA1C) 4077.2545 umol/L
== END 2025-04-16 09:20 | disposition home or self-care (01) ==
LOC: HO.MANLDS 09:19
PROVIDERS: Visit Provider Physician Assistant
DX: E11.21 Type 2 diabetes mellitus with diabetic nephropathy (principal)
CPT/HCPCS: 36415; 80053; 80061; 83036

== ENCOUNTER 2025-06-05 11:12 | Outpatient (REF) | payer MEDICARE, SELFPAY ==
[2025-06-05 13:50] LABS: Alanine Aminotransferase 125 U/L (0-40); Albumin Level 4.7 g/dL (3.5-5.0); Alkaline Phosphatase 95 U/L (39-117); Anion Gap 17 (12-20); Aspartate Amino Transferase 189 U/L (5-37); Blood Urea Nitrogen 13 mg/dL (9-16); Calcium 9.8 mg/dL (8.4-10.2); Carbon Dioxide 25 mmol/L (22-29); Chloride 102 mmol/L (96-108); Estimated Glomerular Filt Rate > 60; Potassium 4.8 mmol/L (3.3-5.1); Sodium 139 mmol/L (135-145); Total Protein 8.1 g/dL (6.5-8.0)
--- OUTSIDE RECORDS SUMMARY | 2025-06-05 14:49 | XMS_ITS | Encounter Summary ---
Author Organization [facility], Address [address] [place] [address] Phone Care Team Providers Care Drawing Instructor Name Role Phone Socrates Kim DO Primary Care Provider [phone] Encounter Details Date Type Department Care Team (Late st Contact Info) Description 06/10/2023 Documentation Only [facility], - [address] [phone] Luis Kirkpatrick MD [address] [facility] [place] [phone] Social History Tobacco Use Types Packs/Day Years [...] on filedocumented in this encounter Care Teams Drawing Instructor Relationship Specialty Start Date End Date Socrates Kim DO [address] [place] [address],[place] [address] PCP - General Internal Medicine 10/10/20 documented as of this encounter
--- OUTSIDE RECORDS SUMMARY | 2025-06-05 14:49 | XMS_ITS | Encounter Summary ---
Author Organization [facility] Address [address] [place] [address] Phone Care Team Providers Care Patient Access Specialist Name Role Phone Socrates Kim DO Primary Care Provider [phone] Bigda, Socrates Valdez DO Unavailable Bigda, Socrates Courtney DO Primary Care Provider [phone] Encounter Details Date Type Department Care Team (Late st Contact Info) Description 11/24/2017 Ancillary Orders Virtual Department [address] [place] [address] Socrates Kim, DO 179 [facility] [place] [address] [place] [address] [email or web address] Left-sided low back pain with left-sided sciatica, [...] Info) Description 04/12/2025 Procedure Pass Echo Lab [address] [place] [address] 09/25/2025 11:15 AM EDT Appointment Echo Lab [address] [place] [address] Buster Diallo MD 22 [facility], [address] [place] [address] [email or web address] 10/11/2025 9:40 AM EDT Office Visit [facility] [address] [facility] 3rd Floor, [address] [place] [address] Buster Diallo MD 22 [facility], [address] [place] [address] [email or web address] documented as of this encounter Results * [...] chronicity documented in this encounter Care Teams Patient Access Specialist Relationship Specialty Start Date End Date Socrates Kim DO PCP - General 04/26/17 08/30/24 Socrates Kim DO 179 [place] [address] [email or web address] PCP - General Internal Medicine 08/31/24 Socrates Kim DO [address] [place] [address] Insurance Assigned Provider 10/16/23 10/15/24 documented as of this encounter Additional Source Comments The information contained in this document represents components of the legal health record. It is not the complete legal health record.[facility]
--- OUTSIDE RECORDS SUMMARY | 2025-06-05 14:49 | XMS_ITS | Encounter Summary ---
Author Organization [facility], Address [address] [place] [address] Phone Care Team Providers Care Pulmonologist Intensivist Name Role Phone Socrates Kim DO Primary Care Provider [phone] Encounter Details Date Type Department Care Team (Late st Contact Info) Description 06/15/2023 Documentation Only [facility], - [address] [phone] Luis Kirkpatrick MD [address] [facility] [place] [phone] Social History Tobacco Use Types Packs/Day Years [...] on filedocumented in this encounter Care Teams Pulmonologist Intensivist Relationship Specialty Start Date End Date Socrates Kim DO [address] [place] [address],[place] [address] PCP - General Internal Medicine 10/10/20 documented as of this encounter
--- OUTSIDE RECORDS SUMMARY | 2025-06-05 14:49 | XMS_ITS | Encounter Summary ---
Author Organization [facility], Address [address] [place] [address] Phone Care Team Providers Care Pattern Scratcher Name Role Phone Socrates Kim DO Primary Care Provider [phone] Encounter Details Date Type Department Care Team (Late st Contact Info) Description 06/15/2023 Documentation Only [facility], - [address] [phone] Luis Kirkpatrick MD [address] [facility] [place] [phone] Social History Tobacco Use Types Packs/Day Years [...] on filedocumented in this encounter Care Teams Pattern Scratcher Relationship Specialty Start Date End Date Socrates Kim DO [address] [place] [address],[place] [address] PCP - General Internal Medicine 10/10/20 documented as of this encounter
--- OUTSIDE RECORDS SUMMARY | 2025-06-05 14:49 | XMS_ITS | Encounter Summary ---
Author Organization [facility], Address [address] [place] [address] Phone Care Team Providers Care Drafter Civil Engineering Name Role Phone Socrates Kim DO Primary Care Provider [phone] Encounter Details Date Type Department Care Team (Late st Contact Info) Description 06/15/2023 Documentation Only [facility], - [address] [phone] Luis Kirkpatrick MD [address] [facility] [place] [phone] Social History Tobacco Use Types Packs/Day Years [...] on filedocumented in this encounter Care Teams Drafter Civil Engineering Relationship Specialty Start Date End Date Socrates Kim DO [address] [place] [address],[place] [address] PCP - General Internal Medicine 10/10/20 documented as of this encounter
--- OUTSIDE RECORDS SUMMARY | 2025-06-05 14:50 | XMS_ITS | Encounter Summary ---
Author Organization [facility] Address [address] [place] [address] [place] [address] Phone Care Team Providers Care Electrician Helper Name Role Phone Julio, Socrates Valdez DO Primary Care Provider [phone] Bigda, Socrates A DO Unavailable Bigda, Socrates A DO Primary Care Provider [phone] Encounter Details Date Type Department Care Team (Latest Contact Info) Description 06/29/2017 Transcribe Orders [address] [address] Socrates Llanes MD [address] [place] [address] [email or web address] Examination (Primary Dx) Social History Tobacco [...] Info) Description 04/12/2025 Procedure Pass Echo Lab [address] [place] [address] 09/25/2025 11:15 AM EDT Appointment Echo Lab [address] [place] [address] Buster Diallo MD 22 [facility] [address] [place] [address] 10/11/2025 9:40 AM EDT Office Visit [facility] 22 [facility] 3rd Floor, [address] [place] [address] Buster Diallo MD 22 [facility], [address] [place] [address] [email or web address] documented as of this encounter Results * (ABNORMAL) Lipid panel (06/29/2017 7:33 AM EST) HDL 60 mg/dL [facility] Comment: Interpretation: Risk Level Males Decreased >45 mg/dL Average 40-45 mg/dL Increased <40 mg/dL CHOLESTEROL 152 0 - 240 mg/dL [facility] TRIGLYCERIDES 155 30 - 160 mg/dL [facility] LDL 61 50 - 129 mg/dL [facility] Comment: LDL levels in terms of risk for coronary heart disease: <100 mg/dL: Optimal 100-129 mg/dL: Near or above optimal 130-159 mg/dL: Borderline high 160-189 mg/dL: High >190 mg/dL: Very High CARDIAC RISK RATIO 2.5(L) 3.4 - 5.0 [facility] Blood 06/29/2017 7:33 AM EST 06/29/2017 7:53 AM EST us Socrates Lalnes MD LAB BLOOD BKR ORDERABLES Final Result [facility] [address] [place] [address] documented in this encounter Visit Diagnoses Diagnosis Examination- Primary Unspecified examination documented in this encounter Care Teams Electrician Helper Relationship Specialty Start Date End Date Socrates Kim DO PCP - General 04/26/17 08/30/24 Socrates Kim DO [address] [place] [address] PCP - General Internal Medicine 08/31/24 Socrates Kim DO [address] [place] [address] [email or web address] Insurance Assigned Provider 10/16/23 10/15/24 documented as of this encounter Additional Source Comments The information contained in this document represents components of the legal health record. It is not the complete legal health record.[facility]
--- OUTSIDE RECORDS SUMMARY | 2025-06-05 14:50 | XMS_ITS | Encounter Summary ---
Author Organization [facility], Address [address] [place] [address] Phone Care Team Providers Care Wild Life Photographer Name Role Phone Socrates Kim DO Primary Care Provider [phone] Encounter Details Date Type Department Care Team (Late st Contact Info) Description 07/06/2023 Documentation Only [facility], - [address] [phone] Luis Kirkpatrick MD [address] [facility] [place] [phone] Social History Tobacco Use Types Packs/Day Years [...] on filedocumented in this encounter Care Teams Wild Life Photographer Relationship Specialty Start Date End Date Socrates Kim DO [address] [place] [address],[place] [address] PCP - General Internal Medicine 10/10/20 documented as of this encounter
--- OUTSIDE RECORDS SUMMARY | 2025-06-05 14:50 | XMS_ITS | Encounter Summary ---
Author Organization [facility], Address [address] [place] [address] Phone Care Team Providers Care Honey Blender Name Role Phone Socrates Kim DO Primary Care Provider [phone] Encounter Details Date Type Department Care Team (Late st Contact Info) Description 06/15/2023 Documentation Only [facility], - [address] [phone] Luis Kirkpatrick MD [address] [facility] [place] [phone] Social History Tobacco Use Types Packs/Day Years [...] on filedocumented in this encounter Care Teams Honey Blender Relationship Specialty Start Date End Date Socrates Kim DO [address] [place] [address],[place] [address] PCP - General Internal Medicine 10/10/20 documented as of this encounter
--- OUTSIDE RECORDS SUMMARY | 2025-06-05 14:50 | XMS_ITS | Encounter Summary ---
Author Organization [facility], Address [address] [place] [address] Phone Care Team Providers Care Desk Clerk Name Role Phone Socrates Kim DO Primary Care Provider [phone] Encounter Details Date Type Department Care Team (Late st Contact Info) Description 06/18/2023 Orders Only [facility], - [place] [address] [phone] Luis Kirkpatrick MD [address] [facility] [place] [phone] Stage 5 chronic kidney disease (HCC) Social [...] (HCC) documented in this encounter Care Teams Desk Clerk Relationship Specialty Start Date End Date Socrates Kim DO 6 [facility] [phone] PCP - General Internal Medicine 10/10/20 documented as of this encounter
--- OUTSIDE RECORDS SUMMARY | 2025-06-05 14:50 | XMS_ITS | Encounter Summary ---
Author Organization [facility], Address [address] [place] [address] Phone Care Team Providers Care Elevator Operator Service Name Role Phone Socrates Kim DO Primary Care Provider [phone] Encounter Details Date Type Department Care Team (Late st Contact Info) Description 07/06/2023 Documentation Only [facility], - [address] [phone] Luis Kirkpatrick MD [address] [facility] [place] [phone] Social History Tobacco Use Types Packs/Day Years [...] on filedocumented in this encounter Care Teams Elevator Operator Service Relationship Specialty Start Date End Date Socrates Kim DO [address] [place] [address],[place] [phone] PCP - General Internal Medicine 10/10/20 documented as of this encounter
--- OUTSIDE RECORDS SUMMARY | 2025-06-05 14:50 | XMS_ITS | Encounter Summary ---
Author Organization [facility], Address [address] [place] [address] Phone Care Team Providers Care Farmworker Turkey Farm Name Role Phone Socrates Kim DO Primary Care Provider [phone] Encounter Details Date Type Department Care Team (Late st Contact Info) Description 06/18/2023 Documentation Only [facility], - [address] [phone] Luis Kirkpatrick MD [address] [facility] [place] [phone] Social History Tobacco Use Types Packs/Day Years [...] on filedocumented in this encounter Care Teams Farmworker Turkey Farm Relationship Specialty Start Date End Date Socrates Kim DO [address] [place] [address],[place] [phone] PCP - General Internal Medicine 10/10/20 documented as of this encounter
--- OUTSIDE RECORDS SUMMARY | 2025-06-05 14:50 | XMS_ITS | Encounter Summary ---
Author Organization [facility], Address [address] [place] [address] Phone Care Team Providers Care Agricultural Education Teacher Name Role Phone Socrates Kmi DO Primary Care Provider Encounter Details Date Type Department Care Team (Late st Contact Info) Description 07/30/2023 Orders Only [facility], - [place] [address] [phone] Luis Kirkpatrick MD [address] [facility] [place] [phone] Stage 5 chronic kidney disease (HCC) Social [...] (HCC) documented in this encounter Care Teams Agricultural Education Teacher Relationship Specialty Start Date End Date Socrates Kim DO 6 [facility] [place] [phone] PCP - General Internal Medicine 10/10/20 documented as of this encounter
--- OUTSIDE RECORDS SUMMARY | 2025-06-05 14:50 | XMS_ITS | Encounter Summary ---
Author Organization [facility], Address [address] [place] [address] Phone Care Team Providers Care Mailing Section Clerk Name Role Phone Socrates Kim DO Primary Care Provider [phone] Encounter Details Date Type Department Care Team (Late st Contact Info) Description 06/08/2023 Documentation Only [facility], - [address] [phone] Luis Kirkpatrick MD [address] [facility] [place] [phone] Social History Tobacco Use Types Packs/Day Years [...] on filedocumented in this encounter Care Teams Mailing Section Clerk Relationship Specialty Start Date End Date Socrates Kim DO [address] [place] [address],[place] [phone] PCP - General Internal Medicine 10/10/20 documented as of this encounter
--- OUTSIDE RECORDS SUMMARY | 2025-06-05 14:50 | XMS_ITS | Encounter Summary ---
Author Organization [facility], Address [address] [place] [address] Phone Care Team Providers Care Motor Hotel Manager Name Role Phone Socrates Kim DO Primary Care Provider [phone] Encounter Details Date Type Department Care Team (Late st Contact Info) Description 06/15/2023 Documentation Only [facility], - [address] [phone] Luis Kirkpatrick MD [address] [facility] [place] [phone] Social History Tobacco Use Types Packs/Day Years [...] on filedocumented in this encounter Care Teams Motor Hotel Manager Relationship Specialty Start Date End Date Socrates Kim DO [address] [place] [address],[place] [phone] PCP - General Internal Medicine 10/10/20 documented as of this encounter
--- OUTSIDE RECORDS SUMMARY | 2025-06-05 14:50 | XMS_ITS | Encounter Summary ---
Author Organization [facility], Address [address] [place] [address] Phone Care Team Providers Care Splitter Hand Name Role Phone Socrates Kim DO Primary Care Provider Encounter Details Date Type Department Care Team (Late st Contact Info) Description 06/22/2023 Documentation Only [facility], - [address] [phone] Luis Kirkpatrick MD [address] [facility] [place] [phone] Social History Tobacco Use Types Packs/Day Years [...] on filedocumented in this encounter Care Teams Splitter Hand Relationship Specialty Start Date End Date Socrates Kim DO [address] [place] [address],[place] [phone] PCP - General Internal Medicine 10/10/20 documented as of this encounter
--- OUTSIDE RECORDS SUMMARY | 2025-06-05 14:50 | XMS_ITS | Encounter Summary ---
Author Organization [facility], Address [address] [place] [address] Phone Care Team Providers Care Senior Credit Analyst Name Role Phone Socrates Kim DO Primary Care Provider [phone] Encounter Details Date Type Department Care Team (Late st Contact Info) Description 05/31/2023 Documentation Only [facility], - [address] [phone] Luis Kirkpatrick MD [address] [facility] [place] [phone] Social History Tobacco Use Types Packs/Day Years [...] on filedocumented in this encounter Care Teams Senior Credit Analyst Relationship Specialty Start Date End Date Socrates Kim DO [address] [place] [address],[place] [phone] PCP - General Internal Medicine 10/10/20 documented as of this encounter
--- OUTSIDE RECORDS SUMMARY | 2025-06-05 14:50 | XMS_ITS | Encounter Summary ---
Author Organization [facility], Address [address] [place] [address] Phone Care Team Providers Care Horse Groomer Name Role Phone Socrates Kim DO Primary Care Provider [phone] Encounter Details Date Type Department Care Team (Late st Contact Info) Description 06/15/2023 Documentation Only [facility], - [address] [phone] Luis Kirkpatrick MD [address] [facility] [place] [phone] Social History Tobacco Use Types Packs/Day Years [...] on filedocumented in this encounter Care Teams Horse Groomer Relationship Specialty Start Date End Date Socrates Kim DO [address] [place] [address],[place] [phone] PCP - General Internal Medicine 10/10/20 documented as of this encounter
--- OUTSIDE RECORDS SUMMARY | 2025-06-05 14:50 | XMS_ITS | Encounter Summary ---
Author Organization [facility], Address [address] [place] [address] Phone Care Team Providers Care Green Coffee Blender Name Role Phone Socrates Kim DO Primary Care Provider [phone] Encounter Details Date Type Department Care Team (Late st Contact Info) Description 08/04/2023 Documentation Only [facility], [address] [place] [address] Rody St[address] [place] [address] Social History Tobacco Use Types [...] on filedocumented in this encounter Care Teams Green Coffee Blender Relationship Specialty Start Date End Date Socrates Kim DO [address] [place] [address] PCP - General Internal Medicine 10/10/20 documented as of this encounter
--- OUTSIDE RECORDS SUMMARY | 2025-06-05 14:50 | XMS_ITS | Encounter Summary ---
Author Organization [facility], Address [address] [place] [address] Phone Care Team Providers Care Manager Shift Name Role Phone Socrates Kim DO Primary Care Provider [phone] Encounter Details Date Type Department Care Team (Late st Contact Info) Description 06/18/2023 Documentation Only [facility], - [address] [phone] Luis Kirkpatrick MD [address] [facility] [place] [phone] Social History Tobacco Use Types Packs/Day Years [...] filedocumented in this encounter Care Teams Manager Shift Relationship Specialty Start Date End Date Socrates Kim DO [address] [place] [address],[place] [phone] PCP - General Internal Medicine 10/10/20 documented as of this encounter
--- OUTSIDE RECORDS SUMMARY | 2025-06-05 14:50 | XMS_ITS | Encounter Summary ---
Author Organization [facility], Address [address] [place] [address] Phone Care Team Providers Care Lunchroom Food Service Supervisor Name Role Phone Socrates Kim DO Primary Care Provider [phone] Encounter Details Date Type Department Care Team (Late st Contact Info) Description 06/11/2023 Orders Only [facility], - [place] [address] [phone] Luis Kirkpatrick MD [address] [facility] [place] [phone] Stage 5 chronic kidney disease (HCC) Social [...] (HCC) documented in this encounter Care Teams Lunchroom Food Service Supervisor Relationship Specialty Start Date End Date Socrates Kim DO 6 [facility],[place] [phone] PCP - General Internal Medicine 10/10/20 documented as of this encounter
--- OUTSIDE RECORDS SUMMARY | 2025-06-05 14:50 | XMS_ITS | Encounter Summary ---
Author Organization [facility], Address [address] [place] [address] Phone Care Team Providers Care Delivery Motorcycle Driver Name Role Phone Socrates Kim DO Primary Care Provider [phone] Encounter Details Date Type Department Care Team (Late st Contact Info) Description 06/22/2023 Documentation Only [facility], - [address] [phone] Luis Kirkpatrick MD [address] [facility] [place] [phone] Social History Tobacco Use Types Packs/Day Years [...] on filedocumented in this encounter Care Teams Delivery Motorcycle Driver Relationship Specialty Start Date End Date Socrates Kim DO [address] [place] [address],[place] [address] PCP - General Internal Medicine 10/10/20 documented as of this encounter
--- OUTSIDE RECORDS SUMMARY | 2025-06-05 14:50 | XMS_ITS | Encounter Summary ---
Author Organization [facility], Address [address] [place] [address] Phone Care Team Providers Care Irrigationist Designer Name Role Phone Socrates Kim DO Primary Care Provider [phone] Encounter Details Date Type Department Care Team (Late st Contact Info) Description 08/04/2023 Documentation Only [facility], [address] [place] [address] R[address] Stoll [address] [place] [address] Social History Tobacco Use Types [...] on filedocumented in this encounter Care Teams Irrigationist Designer Relationship Specialty Start Date End Date Socrates Kim DO [address] [place] [address] PCP - General Internal Medicine 10/10/20 documented as of this encounter
--- OUTSIDE RECORDS SUMMARY | 2025-06-05 14:50 | XMS_ITS | Encounter Summary ---
Author Organization [facility], Address [address] [place] [address] Phone Care Team Providers Care Calibration Technician Name Role Phone Socrates Kim DO Primary Care Provider [phone] Encounter Details Date Type Department Care Team (Late st Contact Info) Description 07/09/2023 Documentation Only [facility], - [address] [phone] Luis Kirkpatrick MD [address] [facility] [place] [phone] Social History Tobacco Use Types Packs/Day Years [...] on filedocumented in this encounter Care Teams Calibration Technician Relationship Specialty Start Date End Date Socrates Kim DO [address] [place] [address],[place] [address] PCP - General Internal Medicine 10/10/20 documented as of this encounter
--- OUTSIDE RECORDS SUMMARY | 2025-06-05 14:50 | XMS_ITS | Encounter Summary ---
Author Organization [facility], Address [address] [place] [address] Phone Care Team Providers Care Production Grader Name Role Phone Socrates Kim DO Primary Care Provider [phone] Encounter Details Date Type Department Care Team (Late st Contact Info) Description 07/06/2023 Documentation Only [facility], - [address] [phone] Luis Kirkpatrick MD [address] [facility] [place] [phone] Social History Tobacco Use Types Packs/Day Years [...] on filedocumented in this encounter Care Teams Production Grader Relationship Specialty Start Date End Date Socrates Kim DO [address] [place] [address],[place] [address] PCP - General Internal Medicine 10/10/20 documented as of this encounter
--- OUTSIDE RECORDS SUMMARY | 2025-06-05 14:50 | XMS_ITS | Encounter Summary ---
Author Organization [facility], Address [address] [place] [address] Phone Care Team Providers Care Cnc Programmer Name Role Phone Socrates Kim DO Primary Care Provider [phone] Encounter Details Date Type Department Care Team (Late st Contact Info) Description 07/06/2023 Documentation Only [facility], - [address] [phone] Luis Kirkpatrick MD [address] [facility] [place] [phone] Social History Tobacco Use Types Packs/Day Years [...] on filedocumented in this encounter Care Teams Cnc Programmer Relationship Specialty Start Date End Date Socrates Kim DO [address] [place] [address],[place] [phone] PCP - General Internal Medicine 10/10/20 documented as of this encounter
--- OUTSIDE RECORDS SUMMARY | 2025-06-05 14:50 | XMS_ITS | Encounter Summary ---
Author Organization [facility] Address [address] [place] [address] Phone Care Team Providers Care Trial Management Associate Name Role Phone Socrates Kim DO Primary Care Provider [phone] Julio, Socrates Valdez DO Unavailable Julio, Socrates Valdez DO Primary Care Provider [phone] Reason for Referral * Physical Therapy (Routine) - Closed Specialty Diagnoses / Procedures Referred By Contanthony rosas Referred To Contact Physical Therapy Diagnoses Encounter for rehabilitation System, Provider Not In, [facility] [id number] [place] [address] Phone: tel: Referral ID Status Reason Start Date Expiration Date Visits Re quested Visits Authorized [id number] Closed 01/11/2018 07/11/2018 16 16 Encounter Details Date Type Department Care Team (Late st Contact Info) Description 12/16/2017 Transcribe Orders [facility] [address] [place] [address] Socrates Kim DO [address] [facility] [address] [email or web address] Encounter for rehabilitation (Primary Dx) Social History [...] Upcoming Encounters Date Type Department Care Team ([facility] st Contact Info) Description 04/12/2025 Procedure Pass [facility] [address] [place] [address] 09/25/2025 11:15 AM EDT Appointment Echo Lab [address] [place] [address] Buster Diallo MD [address] [place] [address], [address] [address] 10/11/2025 9:40 AM EDT Office Visit [facility] [address] 3rd Floor, [address] [address] Buster Diallo MD [address] [place] [address] [email or web address] Scheduled Referrals Name Type Priority Associated Diagnoses Orde r Schedule Ambulatory referral to [facility] Physical Therapy Outpatient Referral Routine Encounter for rehabilitation Ordered: 12/16/2017 documented as of this encounter Visit Diagnoses Diagnosis Encounter for rehabilitation- Primary documented in this encounter Care Teams Trial Management Associate Relationship Specialty Start Date End Date Socrates Kim DO PCP - General 04/26/17 08/30/24 Socrates Kim DO [address] [facility] [address] PCP - General Internal Medicine 08/31/24 Socrates Kim DO [address] [facility] [address] [email or web address] Insurance Assigned Provider 10/16/23 10/15/24 documented as of this encounter Additional Source Comments The information contained in this document represents components of the legal health record. It is not the complete legal health record.[facility]
--- OUTSIDE RECORDS SUMMARY | 2025-06-05 14:50 | XMS_ITS | Encounter Summary ---
Author Organization [facility], Address [address] [place] [address] Phone Care Team Providers Care High School English Teacher Name Role Phone Socrates Kim DO Primary Care Provider [phone] Encounter Details Date Type Department Care Team (Late st Contact Info) Description 06/18/2023 Documentation Only [facility], - [address] [phone] Luis Kirkpatrick MD [address] [facility] [place] [phone] Social History Tobacco Use Types Packs/Day Years [...] on filedocumented in this encounter Care Teams High School English Teacher Relationship Specialty Start Date End Date Socrates Kim DO [address] [place] [address],[place] [phone] PCP - General Internal Medicine 10/10/20 documented as of this encounter
--- OUTSIDE RECORDS SUMMARY | 2025-06-05 14:50 | XMS_ITS | Encounter Summary ---
Author Organization [facility], Address [address] [place] [address] Phone Care Team Providers Care Senior Manager Quality Assurance Name Role Phone Socrates Kim DO Primary Care Provider Encounter Details Date Type Department Care Team (Late st Contact Info) Description 07/09/2023 Documentation Only [facility], - [address] [phone] Luis Kirkpatrick MD [address] [facility] [place] [phone] Social History Tobacco Use Types Packs/Day Years [...] filedocumented in this encounter Care Teams Senior Manager Quality Assurance Relationship Specialty Start Date End Date Socrates Kim DO [address] [place] [address],[place] [address] PCP - General Internal Medicine 10/10/20 documented as of this encounter
--- OUTSIDE RECORDS SUMMARY | 2025-06-05 14:50 | XMS_ITS | Encounter Summary ---
Author Organization [facility], Address [address] [place] [address] Phone Care Team Providers Care Inspector Precision Assembly Name Role Phone Socrates Kim DO Primary Care Provider [phone] Encounter Details Date Type Department Care Team (Late st Contact Info) Description 08/04/2023 Documentation Only [facility], [address] [place] [address] R[address] Stoll [address] [place] [address] Social History Tobacco Use Types [...] on filedocumented in this encounter Care Teams Inspector Precision Assembly Relationship Specialty Start Date End Date Socrates Kim DO [address] [place] [address] PCP - General Internal Medicine 10/10/20 documented as of this encounter
--- OUTSIDE RECORDS SUMMARY | 2025-06-05 14:50 | XMS_ITS | Encounter Summary ---
Author Organization [facility], Address [address] [place] [address] Phone Care Team Providers Care Warp Tier Name Role Phone Socrates Kim DO Primary Care Provider [phone] Encounter Details Date Type Department Care Team (Late st Contact Info) Description 06/22/2023 Documentation Only [facility], - [address] [phone] Luis Kirkpatrick MD [address] [facility] [place] [phone] Social History Tobacco Use Types Packs/Day Years [...] on filedocumented in this encounter Care Teams Warp Tier Relationship Specialty Start Date End Date Socrates Kim DO [address] [place] [address],[place] [address] PCP - General Internal Medicine 10/10/20 documented as of this encounter
--- OUTSIDE RECORDS SUMMARY | 2025-06-05 14:50 | XMS_ITS | Encounter Summary ---
Author Organization [facility], Address [address] [place] [address] Phone Care Team Providers Care Grades 6 Through 8 Teacher Name Role Phone Socrates Kim DO Primary Care Provider [phone] Encounter Details Date Type Department Care Team (Late st Contact Info) Description 06/22/2023 Documentation Only [facility], - [address] [phone] Luis Kirkpatrick MD [address] [facility] [place] [phone] Social History Tobacco Use Types Packs/Day Years [...] on filedocumented in this encounter Care Teams Grades 6 Through 8 Teacher Relationship Specialty Start Date End Date Socrates Kim DO [address] [place] [address],[place] [address] PCP - General Internal Medicine 10/10/20 documented as of this encounter
--- OUTSIDE RECORDS SUMMARY | 2025-06-05 14:50 | XMS_ITS | Encounter Summary ---
Author Organization [facility] [place] Address [address] [place] [address] [place] [address] Phone Care Team Providers Care Senior Research Project Manager Name Role Phone Socrates Kim Primary Care Provider [phone] Encounter Details Date Type Department Care Team (Late st Contact Info) Description 01/30/2025 Procedure Pass [facility], [address] [address] Social History Tobacco Use Types Packs/Day Years [...] Upcoming Encounters Date Type Department Care Team ([facility] st Contact Info) Description 04/12/2025 Procedure Pass [facility] [address] [place] [address] 09/25/2025 11:15 AM EDT Appointment Echo [facility] [address] [place] [address] Buster Diallo MD [address] [place] [address] 10/11/2025 9:40 AM EDT Office Visit [facility] [address] [place] [address] 3rd Floor, [address] [place] [address] Buster Diallo MD [address] [place] [address] documented as of this encounter Visit Diagnoses Not on filedocumented in this encounter Care Teams Senior Research Project Manager Relationship Specialty Start Date End Date Socrates Kim DO [address] [place] [address] [place] [address] PCP - General Internal Medicine 08/31/24 documented as of this encounter Additional Source Comments The information contained in this document represents components of the legal health record. It is not the complete legal health record.[facility]
--- OUTSIDE RECORDS SUMMARY | 2025-06-05 14:50 | XMS_ITS | Encounter Summary ---
Author Organization [facility], Address [address] [place] [address] Phone Care Team Providers Care Peanut Cleaner Name Role Phone Socrates Kim DO Primary Care Provider [phone] Encounter Details Date Type Department Care Team (Late st Contact Info) Description 07/09/2023 Documentation Only [facility], - [address] [phone] Luis Kirkpatrick MD [address] [facility] [place] [phone] Social History Tobacco Use Types Packs/Day Years [...] on filedocumented in this encounter Care Teams Peanut Cleaner Relationship Specialty Start Date End Date Socrates Kim DO [address] [place] [address],[place] [address] PCP - General Internal Medicine 10/10/20 documented as of this encounter
--- OUTSIDE RECORDS SUMMARY | 2025-06-05 14:50 | XMS_ITS | Encounter Summary ---
Author Organization [facility], Address [address] [place] [address] Phone Care Team Providers Care Fireboat Operator Name Role Phone Socrates Kim DO Primary Care Provider [phone] Encounter Details Date Type Department Care Team (Late st Contact Info) Description 06/15/2023 Documentation Only [facility], - [address] [phone] Luis Kirkpatrick MD [address] [facility] [place] [phone] Social History Tobacco Use Types Packs/Day Years [...] on filedocumented in this encounter Care Teams Fireboat Operator Relationship Specialty Start Date End Date Socrates Kim DO [address] [place] [address],[place] [address] PCP - General Internal Medicine 10/10/20 documented as of this encounter
--- OUTSIDE RECORDS SUMMARY | 2025-06-05 14:50 | XMS_ITS | Encounter Summary ---
Author Organization [facility], Address [address] [place] [address] Phone Care Team Providers Care Physical Chemist Name Role Phone Socrates Kim DO Primary Care Provider [phone] Encounter Details Date Type Department Care Team (Late st Contact Info) Description 07/06/2023 Documentation Only [facility], - [address] [phone] Luis Kirkpatrick MD [address] [facility] [place] [phone] Social History Tobacco Use Types Packs/Day Years [...] filedocumented in this encounter Care Teams Physical Chemist Relationship Specialty Start Date End Date Socrates Kim DO [address] [place] [address],[place] [phone] PCP - General Internal Medicine 10/10/20 documented as of this encounter
--- OUTSIDE RECORDS SUMMARY | 2025-06-05 14:50 | XMS_ITS | Encounter Summary ---
Author Organization [facility] Address [address] [place] [address] Phone Care Team Providers Care Color Buffer Name Role Phone Socrates Kim DO Primary Care Provider [phone] Socrates Kim DO Unavailable Socrates Kim DO Primary Care Provider [phone] Reason for Referral * Outpatient Procedure - Closed Specialty Diagnoses / Procedures Referred By Gordo rosas Referred To Contact Radiology Diagnoses Unspecified retinal vascular occlusion Procedures US Carotid Duplex Complete (Bilateral) Socrates Kim DO Phone: tel: fax: [email or web address] Referral ID Status Reason Start Date Expiration Date Visits Re quested Visits Authorized [id number] Closed 11/28/2021 11/28/2022 1 1 Encounter Details Date Type Department Care Team (Late st Contact Info) Description 11/28/2021 Transcribe Orders Virtual Department [address] [place] [address] Socrates Kim DO [address] [facility] [address] [email or web address] Unspecified retinal vascular occlusion (Primary Dx) Social [...] Info) Description 04/12/2025 Procedure Pass [facility] [address] [place] [address] 09/25/2025 11:15 AM EDT Appointment Echo Lab [address] [place] [address] Buster Diallo MD [address] [place] [address], [address] [place] [address] [email or web address] 10/11/2025 9:40 AM EDT Office Visit [facility] [address] [place] [address] 3rd Floor, [address] [place] [address] Buster Diallo MD [address] [place] [address], [address] [place] [address] [email or web address] documented as of this encounter Results * US Carotid Duplex Complete (Bilateral) (12/23/2021 2:27 PM EDT) Anatomical Region Laterality Modality Heart, Thoracic Vasculature, Neck Ultrasound 12/24/2021 12:4 5 PM EDT Impressions 12/24/2021 12:48 PM EDT Mild bilateral carotid plaquing without hemodynamically significant ICA stenoses demonstrated. POS - [id number] Narrative 12/24/2021 12:48 PM EDT COMPARISON: None [...] without hemodynamically significant ICAstenoses demonstrated. POS - [id number] us Socrates Kim DO CV US NEUROVASCULAR Final Result documented in this encounter Visit Diagnoses Diagnosis Unspecified retinal vascular occlusion- Primary Unspecified retinal vascular occlusion documented in this encounter Care Teams Color Buffer Relationship Specialty Start Date End Date Socrates Kim DO [email or web address] PCP - General 04/26/17 08/30/24 DanielSocrates adkins [address] [place] [address] PCP - General Internal Medicine 08/31/24 DanielSocrates adkins DO [address] [place] [address] Insurance Assigned Provider 10/16/23 10/15/24 documented as of this encounter Additional Source Comments The information contained in this document represents components of the legal health record. It is not the complete legal health record.[facility]
--- OUTSIDE RECORDS SUMMARY | 2025-06-05 14:50 | XMS_ITS | Encounter Summary ---
Author Organization [facility], Address [address] [place] [address] Phone Care Team Providers Care Molding Associate Name Role Phone Socrates Kim DO Primary Care Provider [phone] Encounter Details Date Type Department Care Team (Late st Contact Info) Description 06/22/2023 Documentation Only [facility], - [address] [phone] Luis Kirkpatrick MD [address] [facility] [place] [phone] Social History Tobacco Use Types Packs/Day Years [...] on filedocumented in this encounter Care Teams Molding Associate Relationship Specialty Start Date End Date Socrates Kim DO [address] [place] [address],[place] [address] PCP - General Internal Medicine 10/10/20 documented as of this encounter
--- OUTSIDE RECORDS SUMMARY | 2025-06-05 14:50 | XMS_ITS | Encounter Summary ---
Author Organization [facility], Address [address] [place] [address] Phone Care Team Providers Care Land Development Manager Name Role Phone Socrates Kim DO Primary Care Provider [phone] Encounter Details Date Type Department Care Team (Late st Contact Info) Description 06/16/2023 Documentation Only [facility], - [address] [phone] Luis Kirkpatrick MD [address] [facility] [place] [phone] Social History Tobacco Use Types Packs/Day Years [...] on filedocumented in this encounter Care Teams Land Development Manager Relationship Specialty Start Date End Date Socrates Kim DO [address] [place] [address],[place] [phone] PCP - General Internal Medicine 10/10/20 documented as of this encounter
--- OUTSIDE RECORDS SUMMARY | 2025-06-05 14:50 | XMS_ITS | Encounter Summary ---
Author Organization [facility] [place] [facility], Address [address] [place] [address] Phone Care Team Providers Care Street Supervisor Name Role Phone Socrates Kim DO Primary Care Provider [phone] Encounter Details Date Type Department Care Team (Late st Contact Info) Description 07/09/2023 Orders Only [facility], - [place] [address] [phone] Luis Kirkpatrick MD [address] [facility] [place] [phone] Stage 5 chronic kidney disease (HCC) Social [...] (HCC) documented in this encounter Care Teams Street Supervisor Relationship Specialty Start Date End Date Socrates Kim DO 6 [facility] [phone] PCP - General Internal Medicine 10/10/20 documented as of this encounter
--- OUTSIDE RECORDS SUMMARY | 2025-06-05 14:50 | XMS_ITS | Encounter Summary ---
Author Organization [facility], Address [address] [place] [address] Phone Care Team Providers Care Drilling Superintendent Name Role Phone Socrates Kim DO Primary Care Provider [phone] Encounter Details Date Type Department Care Team (Late st Contact Info) Description 07/06/2023 Documentation Only [facility], - [address] [phone] Luis Kirkpatrick MD [address] [facility] [place] [phone] Social History Tobacco Use Types Packs/Day Years [...] on filedocumented in this encounter Care Teams Drilling Superintendent Relationship Specialty Start Date End Date Socrates Kim DO [address] [place] [address],[place] [address] PCP - General Internal Medicine 10/10/20 documented as of this encounter
--- OUTSIDE RECORDS SUMMARY | 2025-06-05 14:50 | XMS_ITS | Encounter Summary ---
Author Organization [facility], Address [address] [place] [address] Phone Care Team Providers Care Radiation Oncologist Name Role Phone Socrates Kim DO Primary Care Provider [phone] Encounter Details Date Type Department Care Team (Late st Contact Info) Description 07/06/2023 Documentation Only [facility], - [address] [phone] Luis Kirkpatrick MD [address] [facility] [place] [phone] Social History Tobacco Use Types Packs/Day Years [...] on filedocumented in this encounter Care Teams Radiation Oncologist Relationship Specialty Start Date End Date Socrates Kim DO [address] [place] [address],[place] [address] PCP - General Internal Medicine 10/10/20 documented as of this encounter
--- OUTSIDE RECORDS SUMMARY | 2025-06-05 14:50 | XMS_ITS | Encounter Summary ---
Author Organization [facility], Address [address] [place] [address] Phone Care Team Providers Care Post Tronic Machine Operator Name Role Phone Socrates Kim DO Primary Care Provider [phone] Encounter Details Date Type Department Care Team (Late st Contact Info) Description 07/06/2023 Documentation Only [facility], - [address] [phone] Luis Kirkpatrick MD [address] [facility] [place] [phone] Social History Tobacco Use Types Packs/Day Years [...] on filedocumented in this encounter Care Teams Post Tronic Machine Operator Relationship Specialty Start Date End Date Socrates Kim DO [address] [place] [address],[place] [address] PCP - General Internal Medicine 10/10/20 documented as of this encounter
--- OUTSIDE RECORDS SUMMARY | 2025-06-05 14:51 | XMS_ITS | Encounter Summary ---
Author Organization [facility] [place], Address [address] [place] [address] Phone Care Team Providers Care Data Coder Operator Name Role Phone Socrates Kmi DO Primary Care Provider [phone] Encounter Details Date Type Department Care Team (Late st Contact Info) Description 06/28/2023 Documentation Only [facility], - [address] [phone] Luis Kirkpatrick MD [address] [facility] [place] [phone] Social History Tobacco Use Types Packs/Day Years [...] on filedocumented in this encounter Care Teams Data Coder Operator Relationship Specialty Start Date End Date Socrates Kim DO [address] [place] [address],[place] [address] PCP - General Internal Medicine 10/10/20 documented as of this encounter
--- OUTSIDE RECORDS SUMMARY | 2025-06-05 14:51 | XMS_ITS | Encounter Summary ---
Author Organization [facility] Address [address] [place] [address] [place] [address] Phone Care Team Providers Care Machine Shop Worker Name Role Phone Julio, Socrates A DO Primary Care Provider [phone] Bigda, Socrates A DO Unavailable Bigda, Socrates A DO Primary Care Provider [phone] Encounter Details Date Type Department Care Team (Late st Contact Info) Description 12/22/2023 Procedure Pass OR Admitting Dept - Virtual Department [address] [place] [address] Social History Tobacco Use Types Packs/Day Years [...] Info) Description 04/12/2025 Procedure Pass Echo Lab [address] [place] [address] 09/25/2025 11:15 AM EDT Appointment Echo Lab [address] [place] [address] Buster Diallo MD [address] [place] [address] 10/11/2025 9:40 AM EDT Office Visit [facility] [address] [place] [address] 3rd Floor, [address] [address] Buster Diallo MD [address] [place] [address] documented as of this encounter Visit Diagnoses Not on filedocumented in this encounter Care Teams Machine Shop Worker Relationship Specialty Start Date End Date Socrates Kim DO PCP - General 04/26/17 08/30/24 Socrates Kmi DO [address] [place] [address] [place] [address] PCP - General Internal Medicine 08/31/24 Socrates Kim DO [address] [place] [address] [email or web address] Insurance Assigned Provider 10/16/23 10/15/24 documented as of this encounter Additional Source Comments The information contained in this document represents components of the legal health record. It is not the complete legal health record.[facility]
--- OUTSIDE RECORDS SUMMARY | 2025-06-05 14:51 | XMS_ITS | Encounter Summary ---
Author Organization [facility], Address [address] [place] [address] Phone Care Team Providers Care Customer Experience Intern Name Role Phone Socrates Kim DO Primary Care Provider [phone] Encounter Details Date Type Department Care Team (Late st Contact Info) Description 06/23/2023 Documentation Only [facility], - [address] [phone] Luis Kirkpatrick MD [address] [facility] [place] [phone] Social History Tobacco Use Types Packs/Day Years [...] on filedocumented in this encounter Care Teams Customer Experience Intern Relationship Specialty Start Date End Date Socrates Kim DO [address] [place] [address],[place] [address] PCP - General Internal Medicine 10/10/20 documented as of this encounter
--- OUTSIDE RECORDS SUMMARY | 2025-06-05 14:51 | XMS_ITS | Encounter Summary ---
Author Organization [facility], Address [address] [place] [address] Phone Care Team Providers Care Surface Room Shop Optician Name Role Phone Socrates Kim DO Primary Care Provider [phone] Encounter Details Date Type Department Care Team (Late st Contact Info) Description 07/09/2023 Documentation Only [facility], - [address] [phone] Luis Kirkpatrick MD [address] [facility] [place] [phone] Social History Tobacco Use Types Packs/Day Years [...] on filedocumented in this encounter Care Teams Surface Room Shop Optician Relationship Specialty Start Date End Date Socrates Kim DO [address] [place] [address],[place] [phone] PCP - General Internal Medicine 10/10/20 documented as of this encounter
--- OUTSIDE RECORDS SUMMARY | 2025-06-05 14:51 | XMS_ITS | Encounter Summary ---
Author Organization [facility], Address [address] [place] [address] Phone Care Team Providers Care Rn Clinical Appeals Name Role Phone Socrates Kim DO Primary Care Provider [phone] Encounter Details Date Type Department Care Team (Late st Contact Info) Description 06/28/2023 Documentation Only [facility], - [address] [phone] Luis Kirkpatrick MD [address] [facility] [place] [phone] Social History Tobacco Use Types Packs/Day Years [...] on filedocumented in this encounter Care Teams Rn Clinical Appeals Relationship Specialty Start Date End Date Socrates Kim DO [address] [place] [address],[place] [phone] PCP - General Internal Medicine 10/10/20 documented as of this encounter
--- OUTSIDE RECORDS SUMMARY | 2025-06-05 14:51 | XMS_ITS | Encounter Summary ---
Author Organization [facility], Address [address] [place] [address] Phone Care Team Providers Care Pulper Tender Name Role Phone Socrates Kim DO Primary Care Provider [phone] Encounter Details Date Type Department Care Team (Late st Contact Info) Description 07/02/2023 Orders Only [facility], - [place] [address] [phone] Luis Kirkpatrick MD [address] [facility] [place] [phone] Stage 5 chronic kidney disease (HCC) Social [...] (HCC) documented in this encounter Care Teams Pulper Tender Relationship Specialty Start Date End Date Socrates Kim DO 6 [facility] [phone] PCP - General Internal Medicine 10/10/20 documented as of this encounter
--- OUTSIDE RECORDS SUMMARY | 2025-06-05 14:51 | XMS_ITS | Encounter Summary ---
Author Organization [facility] [place], Address [address] [place] [address] Phone Care Team Providers Care Insulation Helper Name Role Phone Socrates Kim DO Primary Care Provider [phone] Encounter Details Date Type Department Care Team (Late st Contact Info) Description 06/30/2023 Documentation Only [facility], - [address] [phone] Luis Kirkpatrick MD [address] [facility] [place] [phone] Social History Tobacco Use Types Packs/Day Years [...] on filedocumented in this encounter Care Teams Insulation Helper Relationship Specialty Start Date End Date Socrates Kim DO [address] [place] [address],[place] [address] PCP - General Internal Medicine 10/10/20 documented as of this encounter
--- OUTSIDE RECORDS SUMMARY | 2025-06-05 14:51 | XMS_ITS | Encounter Summary ---
Author Organization [facility], Address [address] [place] [address] Phone Care Team Providers Care Pillowcase Sewer Name Role Phone Socrates Kim DO Primary Care Provider [phone] Encounter Details Date Type Department Care Team (Late st Contact Info) Description 07/01/2023 Documentation Only [facility], - [address] [phone] Luis Kirkpatrick MD [address] [facility] [place] [phone] Social History Tobacco Use Types Packs/Day Years [...] on filedocumented in this encounter Care Teams Pillowcase Sewer Relationship Specialty Start Date End Date Socrates Kim DO [address] [place] [address],[place] [phone] PCP - General Internal Medicine 10/10/20 documented as of this encounter
--- OUTSIDE RECORDS SUMMARY | 2025-06-05 14:51 | XMS_ITS | Encounter Summary ---
Author Organization [facility], Address [address] [place] [address] Phone Care Team Providers Care Substance Abuse Therapist Name Role Phone Socrates Kim DO Primary Care Provider [phone] Encounter Details Date Type Department Care Team (Late st Contact Info) Description 06/28/2023 Documentation Only [facility], - [address] [phone] Luis Kirkpatrick MD [address] [facility] [place] [phone] Social History Tobacco Use Types Packs/Day Years [...] on filedocumented in this encounter Care Teams Substance Abuse Therapist Relationship Specialty Start Date End Date Socrates Kim DO [address] [place] [address],[place] [phone] PCP - General Internal Medicine 10/10/20 documented as of this encounter
--- OUTSIDE RECORDS SUMMARY | 2025-06-05 14:51 | XMS_ITS | Encounter Summary ---
Author Organization [facility], Address [address] [place] [address] Phone Care Team Providers Care Environmental Health Officer Name Role Phone Socrates Kim DO Primary Care Provider [phone] Encounter Details Date Type Department Care Team (Late st Contact Info) Description 06/25/2023 Orders Only [facility], - [place] [address] [phone] Luis Kirkpatrick MD [address] [place] [address] [place] [phone] Stage 5 chronic kidney disease (HCC) Social [...] (HCC) documented in this encounter Care Teams Environmental Health Officer Relationship Specialty Start Date End Date Socrates Kim DO 6 [facility] [phone] PCP - General Internal Medicine 10/10/20 documented as of this encounter
--- OUTSIDE RECORDS SUMMARY | 2025-06-05 14:51 | XMS_ITS | Encounter Summary ---
Author Organization [facility], Address [address] [place] [address] Phone Care Team Providers Care Working Supervisor Name Role Phone Socrates Kim DO Primary Care Provider [phone] Encounter Details Date Type Department Care Team (Late st Contact Info) Description 07/23/2023 Orders Only [facility], - [place] [address] [phone] Luis Kirkpatrick MD [address] [facility] [place] [phone] Stage 5 chronic kidney disease (HCC) Social [...] (HCC) documented in this encounter Care Teams Working Supervisor Relationship Specialty Start Date End Date Socrates Kim DO 6 [facility] [phone] PCP - General Internal Medicine 10/10/20 documented as of this encounter
--- OUTSIDE RECORDS SUMMARY | 2025-06-05 14:51 | XMS_ITS | Encounter Summary ---
Author Organization [facility], Address [address] [place] [address] Phone Care Team Providers Care Histology Tech Name Role Phone Socrates Kim DO Primary Care Provider [phone] Encounter Details Date Type Department Care Team (Late st Contact Info) Description 06/28/2023 Documentation Only [facility], - [address] [phone] Luis Kirkpatrick MD [address] [facility] [place] [phone] Social History Tobacco Use Types Packs/Day Years [...] on filedocumented in this encounter Care Teams Histology Tech Relationship Specialty Start Date End Date Socrates Kim DO [address] [place] [address],[place] [phone] PCP - General Internal Medicine 10/10/20 documented as of this encounter
--- OUTSIDE RECORDS SUMMARY | 2025-06-05 14:51 | XMS_ITS | Encounter Summary ---
Author Organization [facility] Address [address] [place] [address] Phone Care Team Providers Care Body Worker Name Role Phone Socrates Kim DO Primary Care Provider [phone] Socrates Kim DO Unavailable Socrates Kim DO Primary Care Provider [phone] Reason for Referral * Outpatient Procedure - Closed Specialty Diagnoses / Procedures Referred By Gordo rosas Referred To Contact Radiology Diagnoses Encounter for screening for cardiovascular disorders Encounter for abdominal aortic aneurysm (AAA) screening Procedures US Abdominal Aortic Screening Socrates Kim DO Phone: tel: fax: [email or web address] Referral ID Status Reason Start Date Expiration Date Visits Re quested Visits Authorized [id number] Closed 07/21/2022 07/21/2023 1 1 Encounter Details Date Type Department Care Team (Late st Contact Info) Description 07/21/2022 Transcribe Orders Virtual Department [address] [place] [address] Socrates Kim DO [address] [facility] [place] [address] [email or web address] Encounter for screening for cardiovascular disorders (Primary [...] Info) Description 04/12/2025 Procedure Pass Echo Lab [address] [place] [address] 09/25/2025 11:15 AM EDT Appointment Echo Lab [address] [place] [address] Buster Diallo MD [address] [place] [address], [address] [place] [address] [email or web address] 10/11/2025 9:40 AM EDT Office Visit [facility] [address] [place] [address] 3rd Floor, [address] [place] [address] Buster Diallo MD [address] [place] [address], [address] [place] [address] [email or web address] documented as of this encounter Results * [...] screening documented in this encounter Care Teams Body Worker Relationship Specialty Start Date End Date Socrates Kim DO PCP - General 04/26/17 08/30/24 Socrates Kim DO [address] [facility] [place] [address] PCP - General Internal Medicine 08/31/24 Socrates Kim DO [address] [facility] [place] [address] Insurance Assigned Provider 10/16/23 10/15/24 documented as of this encounter Additional Source Comments The information contained in this document represents components of the legal health record. It is not the complete legal health record.[facility]
--- OUTSIDE RECORDS SUMMARY | 2025-06-05 14:51 | XMS_ITS | Encounter Summary ---
Author Organization [facility], Address [address] [place] [address] Phone Care Team Providers Care Ram Press Operator Name Role Phone Socrates Kim DO Primary Care Provider [phone] Encounter Details Date Type Department Care Team (Late st Contact Info) Description 07/06/2023 Documentation Only [facility], - [address] [phone] Luis Kirkpatrick MD [address] [facility] [place] [phone] Social History Tobacco Use Types Packs/Day Years [...] on filedocumented in this encounter Care Teams Ram Press Operator Relationship Specialty Start Date End Date Socrates Kim DO [address] [place] [address],[place] [phone] PCP - General Internal Medicine 10/10/20 documented as of this encounter
--- OUTSIDE RECORDS SUMMARY | 2025-06-05 14:51 | XMS_ITS | Encounter Summary ---
Author Organization [facility], Address [address] [place] [address] Phone Care Team Providers Care Delinquent Account Clerk Name Role Phone Socrates Kim DO Primary Care Provider [phone] Encounter Details Date Type Department Care Team (Late st Contact Info) Description 07/06/2023 Documentation Only [facility], - [address] [phone] Luis Kirkpatrick MD [address] [facility] [place] [phone] Social History Tobacco Use Types Packs/Day Years [...] on filedocumented in this encounter Care Teams Delinquent Account Clerk Relationship Specialty Start Date End Date Socrates Kim DO [address] [place] [address],[place] [address] PCP - General Internal Medicine 10/10/20 documented as of this encounter
--- OUTSIDE RECORDS SUMMARY | 2025-06-05 14:51 | XMS_ITS | Encounter Summary ---
Author Organization [facility], Address [address] [place] [address] Phone Care Team Providers Care Heat Treating Bluer Name Role Phone Julio Socrates HERNÁNDEZ Primary Care Provider [phone] Encounter Details Date Type Department Care Team (Late st Contact Info) Description 07/16/2023 Orders Only [facility], - [place] [address] [phone] Luis Kirkpatrick MD [address] [facility] [place] [phone] Stage 5 chronic kidney disease (HCC) Social [...] (HCC) documented in this encounter Care Teams Heat Treating Bluer Relationship Specialty Start Date End Date Socrates Kim DO 6 [facility] [place] [phone] PCP - General Internal Medicine 10/10/20 documented as of this encounter
--- OUTSIDE RECORDS SUMMARY | 2025-06-05 14:51 | XMS_ITS | Encounter Summary ---
Author Organization [facility] [place] [facility], Address [address] [place] [address] Phone Care Team Providers Care Watershed Coordinator Name Role Phone Socrates Kim DO Primary Care Provider [phone] Encounter Details Date Type Department Care Team (Late st Contact Info) Description 06/22/2023 Documentation Only [facility] [place], - [address] [phone] Luis Kirkpatrick MD [address] [facility] [place] [phone] Social History Tobacco Use Types Packs/Day Years [...] on filedocumented in this encounter Care Teams Watershed Coordinator Relationship Specialty Start Date End Date Socrates Kim DO [address] [place] [address],[place] [phone] PCP - General Internal Medicine 10/10/20 documented as of this encounter
--- OUTSIDE RECORDS SUMMARY | 2025-06-05 14:51 | XMS_ITS | Encounter Summary ---
Author Organization [facility] [place], Address [address] [place] [address] Phone Care Team Providers Care Bottle Carrier Name Role Phone Socrates Kim DO Primary Care Provider [phone] Encounter Details Date Type Department Care Team (Late st Contact Info) Description 06/30/2023 Documentation Only [facility], - [address] [phone] Luis Kirkpatrick MD [address] [facility] [place] [phone] Social History Tobacco Use Types Packs/Day Years [...] on filedocumented in this encounter Care Teams Bottle Carrier Relationship Specialty Start Date End Date Socrates Kim DO [address] [place] [address],[place] [phone] PCP - General Internal Medicine 10/10/20 documented as of this encounter
--- OUTSIDE RECORDS SUMMARY | 2025-06-05 14:51 | XMS_ITS | Encounter Summary ---
Author Organization [facility] [place], Address [address] [place] [address] Phone Care Team Providers Care Inspector Rough Castings Name Role Phone Socrates Kim DO Primary Care Provider [phone] Encounter Details Date Type Department Care Team (Late st Contact Info) Description 06/30/2023 Documentation Only [facility] [place], - [address] [phone] Luis Kirkpatrick MD [address] [facility] [place] [phone] Social History Tobacco Use Types Packs/Day Years [...] filedocumented in this encounter Care Teams Inspector Rough Castings Relationship Specialty Start Date End Date Socrates Kim DO [address] [place] [address],[place] [phone] PCP - General Internal Medicine 10/10/20 documented as of this encounter
--- OUTSIDE RECORDS SUMMARY | 2025-06-05 14:51 | XMS_ITS | Encounter Summary ---
Author Organization [facility] [place], Address [address] [place] [address] Phone Care Team Providers Care Slasher Machine Operator Name Role Phone Socrates Kim DO Primary Care Provider [phone] Encounter Details Date Type Department Care Team (Late st Contact Info) Description 06/30/2023 Documentation Only [facility] [place], - [address] [phone] Luis Kirkpatrick MD [address] [facility] [place] [phone] Social History Tobacco Use Types Packs/Day Years [...] on filedocumented in this encounter Care Teams Slasher Machine Operator Relationship Specialty Start Date End Date Socrates Kim DO [address] [place] [address],[place] [address] PCP - General Internal Medicine 10/10/20 documented as of this encounter
--- OUTSIDE RECORDS SUMMARY | 2025-06-05 14:51 | XMS_ITS | Encounter Summary ---
Author Organization [facility] [place], Address [address] [place] [address] Phone Care Team Providers Care College Scouting Coordinator Name Role Phone Socrates Kim DO Primary Care Provider [phone] Encounter Details Date Type Department Care Team (Late st Contact Info) Description 06/22/2023 Documentation Only [facility], - [address] [address] [phone] Luis Kirkpatrick MD [address] [facility] [place] [phone] Social History Tobacco Use Types Packs/Day Years [...] on filedocumented in this encounter Care Teams College Scouting Coordinator Relationship Specialty Start Date End Date Socrates Kim DO [address] [place] [address],[place] [address] PCP - General Internal Medicine 10/10/20 documented as of this encounter
--- OUTSIDE RECORDS SUMMARY | 2025-06-05 14:51 | XMS_ITS | Encounter Summary ---
Author Organization [facility] [place], Address [address] [place] [address] Phone Care Team Providers Care Science Specialist Name Role Phone Socrates Kim DO Primary Care Provider [phone] Encounter Details Date Type Department Care Team (Late st Contact Info) Description 06/22/2023 Documentation Only [facility] [place], - [address] [phone] Luis Kirkpatrick MD [address] [facility] [place] [phone] Social History Tobacco Use Types Packs/Day Years [...] on filedocumented in this encounter Care Teams Science Specialist Relationship Specialty Start Date End Date Socrates Kim DO [address] [place] [address],[place] [phone] PCP - General Internal Medicine 10/10/20 documented as of this encounter
--- OUTSIDE RECORDS SUMMARY | 2025-06-05 14:51 | XMS_ITS | Encounter Summary ---
Author Organization [facility] [place], Address [address] [place] [address] Phone Care Team Providers Care Book Solicitor Name Role Phone Socrates Kim DO Primary Care Provider [phone] Encounter Details Date Type Department Care Team (Late st Contact Info) Description 06/28/2023 Documentation Only [facility] [place], - [address] [phone] Luis Kirkpatrick MD [address] [facility] [place] [phone] Social History Tobacco Use Types Packs/Day Years [...] on filedocumented in this encounter Care Teams Book Solicitor Relationship Specialty Start Date End Date Socrates Kim DO [address] [place] [address],[place] [phone] PCP - General Internal Medicine 10/10/20 documented as of this encounter
--- OUTSIDE RECORDS SUMMARY | 2025-06-05 14:51 | XMS_ITS | Encounter Summary ---
Author Organization [facility] [place], Address [address] [place] [address] Phone Care Team Providers Care Atg Architect Name Role Phone Socrates Kim DO Primary Care Provider [phone] Encounter Details Date Type Department Care Team (Late st Contact Info) Description 07/06/2023 Documentation Only [facility] [place], - [address] [phone] Luis Kirkpatrick MD [address] [facility] [place] [phone] Social History Tobacco Use Types Packs/Day Years [...] on filedocumented in this encounter Care Teams Atg Architect Relationship Specialty Start Date End Date Socrates Kim DO [address] [place] [address],[place] [address] PCP - General Internal Medicine 10/10/20 documented as of this encounter
--- OUTSIDE RECORDS SUMMARY | 2025-06-05 14:52 | XMS_ITS | Encounter Summary ---
Author Organization [facility] [place] [place], Address [address] [place] [address] Phone Care Team Providers Care Railroad Engineer Name Role Phone Socrates Kim DO Primary Care Provider Encounter Details Date Type Department Care Team (Late st Contact Info) Description 10/08/2023 Documentation Only [facility] [place], [address] [place] [address] [address] [place] [address] Social History Tobacco Use Types [...] on filedocumented in this encounter Care Teams Railroad Engineer Relationship Specialty Start Date End Date Socrates Kim DO [address] [place] [address] PCP - General Internal Medicine 10/10/20 documented as of this encounter
--- OUTSIDE RECORDS SUMMARY | 2025-06-05 14:52 | XMS_ITS | Encounter Summary ---
Author Organization [facility] [place], Address [address] [place] [address] Phone Care Team Providers Care Print Manager Name Role Phone Socrates Kim DO Primary Care Provider [phone] Encounter Details Date Type Department Care Team (Late st Contact Info) Description 10/08/2023 Documentation Only [facility], [address] [place] [address] [address] [place] [address] Social History Tobacco Use Types [...] on filedocumented in this encounter Care Teams Print Manager Relationship Specialty Start Date End Date Socrates Kim DO [address] [place] [address] PCP - General Internal Medicine 10/10/20 documented as of this encounter
--- OUTSIDE RECORDS SUMMARY | 2025-06-05 14:52 | XMS_ITS | Encounter Summary ---
Author Organization [facility], Address [address] [place] [address] Phone Care Team Providers Care Software Testing Specialist Name Role Phone Socrates Kim DO Primary Care Provider [phone] Encounter Details Date Type Department Care Team (Late st Contact Info) Description 10/08/2023 Documentation Only [facility], [address] [place] [address] [address] [place] [address] Social History Tobacco Use [...] on filedocumented in this encounter Care Teams Software Testing Specialist Relationship Specialty Start Date End Date Socrates Kim DO [address] [place] [address] PCP - General Internal Medicine 10/10/20 documented as of this encounter
--- OUTSIDE RECORDS SUMMARY | 2025-06-05 14:52 | XMS_ITS | Encounter Summary ---
Author Organization [facility] [place], Address [address] [place] [address] Phone Care Team Providers Care Chest Pain Coordinator Name Role Phone Socrates Kim DO Primary Care Provider [phone] Encounter Details Date Type Department Care Team (Late st Contact Info) Description 10/08/2023 Documentation Only [facility], [address] [place] [address] [address] [place] [address] Social History Tobacco Use Types [...] on filedocumented in this encounter Care Teams Chest Pain Coordinator Relationship Specialty Start Date End Date Socrates Kim DO [address] [place] [address] PCP - General Internal Medicine 10/10/20 documented as of this encounter
--- OUTSIDE RECORDS SUMMARY | 2025-06-05 14:52 | XMS_ITS | Encounter Summary ---
Author Organization [facility] [place], Address [address] [place] [address] Phone Care Team Providers Care Building Admin Name Role Phone Socrates Kim DO Primary Care Provider [phone] Encounter Details Date Type Department Care Team (Late st Contact Info) Description 10/08/2023 Documentation Only [facility], [address] [place] [address] [address] [place] [address] Social History Tobacco Use Types [...] on filedocumented in this encounter Care Teams Building Admin Relationship Specialty Start Date End Date Socrates Kim DO [address] [place] [address] PCP - General Internal Medicine 10/10/20 documented as of this encounter
--- OUTSIDE RECORDS SUMMARY | 2025-06-05 14:52 | XMS_ITS | Encounter Summary ---
Author Organization [facility], Address [address] [place] [address] Phone Care Team Providers Care Distribution Sales Manager Name Role Phone Socrates Kim DO Primary Care Provider [phone] Encounter Details Date Type Department Care Team (Late st Contact Info) Description 08/04/2023 Documentation Only [facility], [address] [place] [address] [address] [place] [address] Social History Tobacco Use Types [...] on filedocumented in this encounter Care Teams Distribution Sales Manager Relationship Specialty Start Date End Date Socrates Kim DO [address] [place] [address] PCP - General Internal Medicine 10/10/20 documented as of this encounter
--- OUTSIDE RECORDS SUMMARY | 2025-06-05 14:52 | XMS_ITS | Clinical Summary ---
Author Organization [facility] Address [address] [place] [address] [place] [address] Phone Care Team Providers Care Butcher Supervisor Name Role Phone Avani Schwartz DO Primary Care Provider [phone] Allergies No known active allergies Medications tamsulosin (FLOMAX) 0.4 mg Cp24 Take 0.4 mg by mouth daily. Active LANTUS SOLOSTAR U-100 INSULIN 100 unit/mL (3 mL) InPn injection pen Inject 28 Units under the skin daily. In AM 07/29/2023 Active multivitamin per tablet Take 1 tablet by mouth daily. 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 (Primary Dx); Coronary artery disease involving platinum coronary artery of platinum heart without angina pectoris; Essential hypertension; Mixed hyperlipidemia 03/15/2025 8:58 AM EDT - 03/15/2025 11:59 PM EDT Hospital Encounter [address] [address] Avani Schwartz, Discharge Disposition: Home or Self Care 01/30/2025 Procedure Pass [address] [address] from Last 3 Months Immunizations Immunization Administration [...] Description 04/12/2025 Procedure Pass Echo Lab [address] [place] [address] 09/25/2025 11:15 AM EDT Appointment Echo Lab [place] [address] [place] [address] Buster Diallo MD [address] [place] [address], [address] [place] [address] 10/11/2025 9:40 AM EDT Office Visit [facility] [address] [place] [address] 3rd Floor, [address] [place] [address] Buster Diallo MD [address] [place] [address], [address] [place] [address] Health Maintenance Due Date Last Done Comments DEPRESSION SCREENING 1969 SMOKING Hx and SMOKELESS TOBACCO SCREENING 1970 COLOGUARD 2002 FIT TEST 2002 FOBT 2002 SIGMOIDOSCOPY 2002 VIRTUAL COLONOSCOPY 2002 RSV VACCINE (1 - Risk 50-74 years 1-dose series) 2007 ZOSTER VACCINES (2 of 3) 01/21/2018 11/26/2017, [...] 2025 07/23/2021, 11/14/2020 BLOOD PRESSURE 10/11/2025 04/12/2025 COLONOSCOPY 09/19/2026 09/09/2023 COLORECTAL CANCER SCREENING 09/19/2026 Adult Td,Tdap Booster 01/13/2033 01/13/2023, 012 ABDOMINAL AORTIC ANEURYSM (AAA) SCREENING Completed 08/05/2022 HEPATITIS C SCREENING Completed 10/07/2023 , 10/07/2023, 10/07/2023, Additional history exists HEPATITIS A VACCINES Aged [...] this topic Medical Devices Implanted Type Area Lead Radiation Therapist Device Identifier Shelf Expiration Date Model / [...] clinician's provided indication for this examination in [facility]: Outside Radiology Order; ADVANCED ARTHRITIC CHANGES IN [...] clinician's provided indication for this examination in [facility]:Outside Radiology Order; ADVANCED ARTHRITIC CHANGES IN THE [...] HEMOGLOBIN A1C 8.6(H) 4.3 - 5.8 % [facility] Blood 08/31/2024 8:31 AM EST 08/31/2024 8:34 AM EST us Winsome MCGILL LAB BLOOD BKR ORDERABLES Fi nal Result [address] [address] * Hepatitis C antibody, qualitative (10/07/2023 9:37 AM EDT) HCV NON-REACTIV E NON-REACTI VE [facility] Blood 10/07/2023 9:37 AM EDT 10/07/2023 9:45 AM EDT us Luis Kirkpatrick MD LAB BLOOD BKR ORDERABLES Final R esult Performing Organization Address City/[facility]/ZIP Co de Phone Number [address] [address] * ENDOSCOPY, COLON (09/09/2023 1:42 PM EST) Narrative Transcriptions Urmila Loya MD - 09/09/2023 1:42 PM EST [facility] Patient Name: Jorge A Jack Attending MD:: URMILA LOYA MD, Procedure Date: 09/09/2023 1:42 PM Date of : 1955 Age: 68 Admit Type: Outpatient Gender: Male Room: [place] [address] Referring MD: AVANI SCHWARTZ DO Exam Type: [...] monitored continuously. The Olympus adult variable colonoscope [id number] #[id number] was introduced through the anus and [...] 1:42 PM Procedure Code(s): --- Professional --- 67842, Colonoscopy, flexible; with removal of tumor(s), polyp(s), or other lesion(s) by snare technique --- Technical --- 51319, Colonoscopy, flexible; with removal of tumor(s), polyp(s), [...] or abscess without bleeding CPT copyright 2021 [employer]. All rights reserved. The codes documented in this report are preliminary and upon title curative specialist reviewmay be revised to meet current compliance requirements. Procedure Date: 09/09/2023 1:42:32 PM [address] [place] [address] us Avani A Bigda DO GI PROCEDURE [...] URINE MICROALBUMIN <1.2 0 - 2.3 mg/dL [facility] URINE CREATININE 83 mg/dL [employer] MICROALB/CRE RATIO NOT CALCULATED 0 - 20 mg/g Cre [facility] Comment:due to Microalbumin <1.2 Urine (Urine) 12/26/2020 5:0 6 PM EDT 12/26/2020 6:19 PM EDT us Luis Kirkpatrick MD LAB URINE ORDERABLES Final Resul t Performing Organization Address City/[facility]/ZIP Co de Phone Number [address] [address] * (ABNORMAL) Lipid panel (06/11/2020 7:44 AM EST) HDL 66 mg/dL [facility] Comment: Interpretation <40 mg/dL: Low HDL cholesterol (major risk factor for CHD) Greater than or equal to 60 mg/dL: High HDL cholesterol ( negative risk factor for CHD) HDL - cholesterol is affected by a number of factors, e.g. smoking, excerise, hormones, sex and age. CHOLESTEROL 134 0 - 240 mg/dL [facility] TRIGLYCERIDES 69 30 - 160 mg/dL [facility] LDL 54 50 - 129 mg/dL [facility] Comment: LDL levels in terms of risk for coronary heart disease: <100 mg/dL: Optimal 100-129 mg/dL: Near or above optimal 130-159 mg/dL: Borderline high 160-189 mg/dL: High >190 mg/dL: Very High CARDIAC RISK RATIO 2.0(L) 3.4 - 5.0 [facility] Blood 06/11/2020 7:44 AM EST 06/11/2020 8:10 AM EST us Avani Llanes MD LAB BLOOD BKR ORDERABLES Final Result Performing Organization Address City/[facility]/ZIP Co de Phone Number [address] [address] from Last 3 Months or Most Recently Relevant to Health Maintenance Insurance MEDICARE PART A & B Member Subscriber Plan / Payer (Ef fective 2024-) Name:Jorge A Jack Member ID:[id number] Relation to Subscriber:Self Name:Jorge A Jack Subscriber ID:[id number] Payer ID:[id number] Group ID:Not on file Type:Medicare Address: [employer] [address] MEDICARE HMO BLUE REPLACEMENT MEDICARE PART A & B Member Subscriber Plan / Payer (Ef fective 2024-) Name:Jorge A Jack Member ID:[id number] Relation to Subscriber:Self Name:Jorge A Jack Subscriber ID:[id number] Payer ID:[id number] Group ID:Not on file Type:Medicare Address: [employer] [address] [place] [id number] [place] [address] MEDICARE HMO BLUE REPLACEMENT MEDICARE PART A & B MEDICARE HMO BLUE REPLACEMENT MEDICARE PART A & B Member Subscriber Plan / Payer (Ef fective 2024-) Name:Jorge A Jack Member ID:[id number] Relation to Subscriber:Self Name:Jorge A Jack Subscriber ID:[id number] Payer ID:[id number] Group ID:Not on file Type:Medicare Address: [employer] [address] [place] [address] [place] [address] MEDICARE HMO BLUE REPLACEMENT MEDICARE PART A & B [place] BLUE REPLAC[place] MEDICARE PART A & B [place] BLUE REPLACEMENT Care Teams Butcher Supervisor Relationship Specialty Start Date End Date Avani Schwartz DO [address] [place] [address] [email or web address] PCP - General Internal Medicine 08/31/24 Additional Source Comments The information contained in this document represents components of the legal health record. It is not the complete legal health record.[facility]
--- OUTSIDE RECORDS SUMMARY | 2025-06-05 14:52 | XMS_ITS | Encounter Summary ---
Author Organization [facility] [place], Address [address] [place] [address] Phone Care Team Providers Care Utility Person Name Role Phone Socrates Kim DO Primary Care Provider [phone] Encounter Details Date Type Department Care Team (Late st Contact Info) Description 10/08/2023 Documentation Only [facility], [address] [place] [address] [address] [place] [address] Social History Tobacco Use Types [...] on filedocumented in this encounter Care Teams Utility Person Relationship Specialty Start Date End Date Socrates Kim DO [address] [place] [address] PCP - General Internal Medicine 10/10/20 documented as of this encounter
--- OUTSIDE RECORDS SUMMARY | 2025-06-05 14:52 | XMS_ITS | Encounter Summary ---
Author Organization [facility] [place], Address [address] [place] [address] Phone Care Team Providers Care Body Shop Technician Name Role Phone Socrates Kim DO Primary Care Provider [phone] Encounter Details Date Type Department Care Team (Late st Contact Info) Description 08/04/2023 Documentation Only [facility] [place], [address] [place] [address] [address] [place] [address] Social History Tobacco Use Types [...] on filedocumented in this encounter Care Teams Body Shop Technician Relationship Specialty Start Date End Date Socrates Kim DO [address] [place] [address] PCP - General Internal Medicine 10/10/20 documented as of this encounter
--- OUTSIDE RECORDS SUMMARY | 2025-06-05 14:52 | XMS_ITS | Encounter Summary ---
Author Organization [facility] Address [address] [place] [address] [place] [address] Phone Care Team Providers Care Sterilization Technician Name Role Phone Julio, Socrates A DO Primary Care Provider Bigda, Socrates A DO Unavailable Bigda, Socrates A DO Primary Care Provider [phone] Encounter Details Date Type Department Care Team (Late st Contact Info) Description 04/24/2020 Prep for Surgery [facility] [address] [place] [address] Michelle Serna MD [address] [place] [address] Orthopedics & Sports Medicine, [facility] [place] [address] [email or web address] Social History Tobacco Use Types Packs/Day Years [...] Info) Description 04/12/2025 Procedure Pass [facility] [place] [place] [address] 09/25/2025 11:15 AM EDT Appointment Echo Lab [address] [place] [address] Buster Diallo MD [address] [place] [address], [address] [address] [email or web address] 10/11/2025 9:40 AM EDT Office Visit [facility] [address] [place] [address] Dr 3[address] Floor, [address] [place] [address] Buster Diallo MD [address] [place] [address] documented as of this encounter Visit Diagnoses Not on filedocumented in this encounter Care Teams Sterilization Technician Relationship Specialty Start Date End Date Socrates Kim DO [email or web address] PCP - General 04/26/17 08/30/24 Socrates Kim DO [address] [place] [address] [email or web address] PCP - General Internal Medicine 08/31/24 Socrates Kim DO [address] [place] [address] [email or web address] Insurance Assigned Provider 10/16/23 10/15/24 documented as of this encounter Additional Source Comments The information contained in this document represents components of the legal health record. It is not the complete legal health record.[facility]
--- OUTSIDE RECORDS SUMMARY | 2025-06-05 14:52 | XMS_ITS | Encounter Summary ---
Author Organization [facility] [place], Address [address] [place] [address] Phone Care Team Providers Care Cotton Baler Name Role Phone Socrates Kim DO Primary Care Provider [phone] Encounter Details Date Type Department Care Team (Late st Contact Info) Description 08/09/2023 Documentation Only [facility] [place], [address] [place] [address] [address] [place] [address] Social History Tobacco Use Types [...] on filedocumented in this encounter Care Teams Cotton Baler Relationship Specialty Start Date End Date Socrates Kim DO [address] [place] [address] PCP - General Internal Medicine 10/10/20 documented as of this encounter
--- OUTSIDE RECORDS SUMMARY | 2025-06-05 14:52 | XMS_ITS | Encounter Summary ---
Author Organization [facility] [place], Address [address] [place] [address] Phone Care Team Providers Care Pharmacist Hospital Name Role Phone Socrates Kim DO Primary Care Provider [phone] Encounter Details Date Type Department Care Team (Late st Contact Info) Description 08/09/2023 Documentation Only [facility], [address] [place] [address] [address] [place] [address] Social History Tobacco Use Types [...] on filedocumented in this encounter Care Teams Pharmacist Hospital Relationship Specialty Start Date End Date Socrates Kim DO [address] [place] [address] PCP - General Internal Medicine 10/10/20 documented as of this encounter
--- OUTSIDE RECORDS SUMMARY | 2025-06-05 14:52 | XMS_ITS | Encounter Summary ---
Author Organization [facility], Address [address] [place] [address] Phone Care Team Providers Care Environmental Professional Name Role Phone Socrates Kim DO Primary Care Provider [phone] Encounter Details Date Type Department Care Team (Late st Contact Info) Description 10/11/2023 Documentation Only [facility], [address] [place] [address] Rody Stoll [address] [place] [address] Social History Tobacco Use Types [...] on filedocumented in this encounter Care Teams Environmental Professional Relationship Specialty Start Date End Date Socrates Kim DO [address] [place] [address] PCP - General Internal Medicine 10/10/20 documented as of this encounter
--- OUTSIDE RECORDS SUMMARY | 2025-06-05 14:52 | XMS_ITS | Encounter Summary ---
Author Organization [facility], Address [address] [place] [address] Phone Care Team Providers Care Railroad Dining Car Steward/Stewardess Name Role Phone Socrates Kim DO Primary Care Provider [phone] Encounter Details Date Type Department Care Team (Late st Contact Info) Description 08/04/2023 Documentation Only [facility], [address] [place] [address] Rody Stoll [address] [place] [address] Social History Tobacco Use Types [...] filedocumented in this encounter Care Teams Railroad Dining Car Steward/Stewardess Relationship Specialty Start Date End Date Socrates Kim DO [address] [place] [address] PCP - General Internal Medicine 10/10/20 documented as of this encounter
--- OUTSIDE RECORDS SUMMARY | 2025-06-05 14:52 | XMS_ITS | Encounter Summary ---
Author Organization [facility] [place], Address [address] [place] [address] Phone Care Team Providers Care Tennis Player Name Role Phone Socrates Kim DO Primary Care Provider [phone] Encounter Details Date Type Department Care Team (Late st Contact Info) Description 08/13/2023 Orders Only [facility], - [place] [address] [phone] Luis Kirkpatrick MD [address] [facility] [id number] Stage 5 chronic kidney disease (HCC) Social [...] (HCC) documented in this encounter Care Teams Tennis Player Relationship Specialty Start Date End Date Socrates Kim DO 6 [facility] [phone] PCP - General Internal Medicine 10/10/20 documented as of this encounter
--- OUTSIDE RECORDS SUMMARY | 2025-06-05 14:52 | XMS_ITS | Encounter Summary ---
Author Organization [facility], Address [address] [place] [address] Phone Care Team Providers Care Registered Veterinary Technician Name Role Phone Socrates Kim DO Primary Care Provider [phone] Encounter Details Date Type Department Care Team (Late st Contact Info) Description 08/06/2023 Orders Only [facility], - [place] [address] [phone] Luis Kirkpatrick MD [address] [facility] [place] [phone] Stage 5 chronic kidney disease (HCC) Social [...] (HCC) documented in this encounter Care Teams Registered Veterinary Technician Relationship Specialty Start Date End Date Socrates Kim DO 6 [facility] [place] [phone] PCP - General Internal Medicine 10/10/20 documented as of this encounter
--- OUTSIDE RECORDS SUMMARY | 2025-06-05 14:52 | XMS_ITS | Encounter Summary ---
Author Organization [facility] [place], Address [address] [place] [address] Phone Care Team Providers Care Transportation Department Head Name Role Phone Socrates Kim DO Primary Care Provider [phone] Encounter Details Date Type Department Care Team (Late st Contact Info) Description 10/11/2023 Documentation Only [facility], [address] [place] [address] Rody Stoll [address] [place] [address] Social History Tobacco Use Types [...] on filedocumented in this encounter Care Teams Transportation Department Head Relationship Specialty Start Date End Date Socrates Kim DO [address] [place] [address] PCP - General Internal Medicine 10/10/20 documented as of this encounter
--- OUTSIDE RECORDS SUMMARY | 2025-06-05 14:52 | XMS_ITS | Encounter Summary ---
Author Organization [facility], Address [address] [place] [address] Phone Care Team Providers Care Auto Phone Installer Name Role Phone Socrates Kim DO Primary Care Provider [phone] Encounter Details Date Type Department Care Team (Late st Contact Info) Description 08/20/2023 Orders Only [facility], - [place] [address] [phone] Luis Kirkpatrick MD [address] [facility] [place] [phone] Stage 5 chronic kidney disease (HCC) Social [...] (HCC) documented in this encounter Care Teams Auto Phone Installer Relationship Specialty Start Date End Date Socrates Kim DO 6 [facility] [place] [phone] PCP - General Internal Medicine 10/10/20 documented as of this encounter
--- OUTSIDE RECORDS SUMMARY | 2025-06-05 14:52 | XMS_ITS | Encounter Summary ---
Author Organization [facility] Address [address] [place] [address] [place] [address] Phone Care Team Providers Care Loading Shovel Oiler Name Role Phone Julio, Socrates A DO Primary Care Provider [phone] Bigda, Socrates A DO Unavailable Bigda, Socrates A DO Primary Care Provider [phone] Encounter Details Date Type Department Care Team (Late st Contact Info) Description 05/22/2020 Procedure Pass [place] Admitting Dept - Virtual Department [address] [place] [address] Social History Tobacco Use Types Packs/Day Years [...] Info) Description 04/12/2025 Procedure Pass [facility] [address] [place] [address] 09/25/2025 11:15 AM EDT Appointment Echo Lab [address] [place] [address] Buster Diallo MD 22 [facility], [address] [address] 10/11/2025 9:40 AM EDT Office Visit [facility] 22 [facility] 3rd Floor, [address] [address] Buster Diallo MD [address] [address] documented as of this encounter Visit Diagnoses Not on filedocumented in this encounter Care Teams Loading Shovel Oiler Relationship Specialty Start Date End Date Socrates Kim DO PCP - General 04/26/17 08/30/24 Socrates Kim DO [address] [place] [address] PCP - General Internal Medicine 08/31/24 Socrates Kim DO [address] [place] [address] Insurance Assigned Provider 10/16/23 10/15/24 documented as of this encounter Additional Source Comments The information contained in this document represents components of the legal health record. It is not the complete legal health record.[facility]
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
--- OUTSIDE RECORDS SUMMARY | 2025-06-05 14:52 | XMS_ITS | Encounter Summary ---
Author Organization [facility] Address [address] [place] [address] [address] [place] [address] Phone Care Team Providers Care Multi Punch Operator Name Role Phone Julio, Socrates A DO Primary Care Provider [phone] Bigda, Socrates A DO Unavailable Bigda, Socrates A DO Primary Care Provider [phone] Encounter Details Date Type Department Care Team (Late st Contact Info) Description 09/09/2023 Procedure Pass [facility] Endoscopy Admitting Dept Virtual Department [address] [place] [address] Social History Tobacco Use Types Packs/Day Years [...] Info) Description 04/12/2025 Procedure Pass Echo Lab [address] [place] [address] 09/25/2025 11:15 AM EDT Appointment Echo Lab [address] [place] [address] Buster Diallo MD [address] [place] [address] 10/11/2025 9:40 AM EDT Office Visit [facility] [address] [place] [address] 3rd Floor, [address] [address] Buster Diallo MD [address] [place] [address] documented as of this encounter Visit Diagnoses Not on filedocumented in this encounter Care Teams Multi Punch Operator Relationship Specialty Start Date End Date Socrates Kim DO PCP - General 04/26/17 08/30/24 Socrates Kim DO [address] [place] [address] PCP - General Internal Medicine 08/31/24 Socrates Kim DO [address] [place] [address] [email or web address] Insurance Assigned Provider 10/16/23 10/15/24 documented as of this encounter Additional Source Comments The information contained in this document represents components of the legal health record. It is not the complete legal health record.[facility]
--- OUTSIDE RECORDS SUMMARY | 2025-06-05 14:52 | XMS_ITS | Encounter Summary ---
Author Organization [facility], Address [address] [place] [address] Phone Care Team Providers Care Sourcing Engineer Name Role Phone Socrates Kim DO Primary Care Provider [phone] Encounter Details Date Type Department Care Team (Late st Contact Info) Description 08/06/2023 Documentation Only [facility], [address] [place] [address] Rody Stoll [address] [place] [address] Social History Tobacco Use Types [...] on filedocumented in this encounter Care Teams Sourcing Engineer Relationship Specialty Start Date End Date Socrates Kim DO [address] [place] [address] PCP - General Internal Medicine 10/10/20 documented as of this encounter
--- OUTSIDE RECORDS SUMMARY | 2025-06-05 14:53 | XMS_ITS | Encounter Summary ---
Author Organization [facility] Address [address] [facility] [address] [place] [address] Phone Care Team Providers Care Citrus Fruit Packer Name Role Phone Biglucille, Socrates A DO Primary Care Provider [phone] Bigda, Socrates A DO Unavailable Bigda, Socrates A DO Primary Care Provider [phone] Encounter Details Date Type Department Care Team (Latest Contact Info) Description 12/11/2020 Transcribe Orders Virtual Department [address] [place] [address] Luis Kirkpatrick MD 15 [facility] [address] [place] [address] [email or web address] Microalbuminuric diabetic nephropathy (Primary Dx) [...] Info) Description 04/12/2025 Procedure Pass [facility] [place] [address] [place] [address] 09/25/2025 11:15 AM EDT Appointment Echo Lab [address] [place] [address] Buster Diallo MD [address] [place] [address], [address] [place] [address] [email or web address] 10/11/2025 9:40 AM EDT Office Visit [facility] [address] [place] [address] 3rd Floor, [address] [place] [address] Buster Diallo MD [address] [place] [address], [address] [place] [address] [email or web address] documented as of this encounter Results * [...] kidneys. 2.Moderate prostatomegaly. us Luis Kirkpatrick MD [facility] Final Result documented in this encounter Visit Diagnoses Diagnosis Microalbuminuric diabetic nephropathy- Primary Microalbuminuric diabetic nephropathy documented in this encounter Care Teams Citrus Fruit Packer Relationship Specialty Start Date End Date Socrates Kim DO [email or web address] PCP - General 04/26/17 08/30/24 Socrates Kim DO [address] [place] [address] PCP - General Internal Medicine 08/31/24 Socrates Kim DO [address] [place] [address] [email or web address] Insurance Assigned Provider 10/16/23 10/15/24 documented as of this encounter Additional Source Comments The information contained in this document represents components of the legal health record. It is not the complete legal health record.[facility]
== END 2025-06-05 11:13 | disposition home or self-care (01) ==
LOC: HO.MANLDS 11:12
PROVIDERS: Visit Provider Physician Assistant
DX: I16.1 Hypertensive emergency (principal)
CPT/HCPCS: 36415; 80053